=== PATIENT | female | born 1955 | race American Indian/Alaskan Native ===

== ENCOUNTER 2016-08-08 11:32 | Inpatient (IN) | payer MEDICARE ==
[2016-08-08] MEDS ORDERED: NACL 0.9% 1000 ML 1,000 ML IV ONE ×2 (11:51→13:26)
[2016-08-08] MEDS ORDERED: TYLENOL PO STA (11:51)
--- NOTE | 2016-08-08 12:33 | XRay Report ---
CHEST TWO VIEWS: 08/08/16 11:32:00 CLINICAL: Cough and fever. COMPARISON: None FINDINGS: Normal heart and pulmonary vasculature. The lungs are normally expanded and clear.The bones and soft tissues are unremarkable. IMPRESSION: Normal chest.
[2016-08-08 12:38] LABS: Basophils % (Auto) 0.7 % (0.0-1.8); Eosinophils % (Auto) 0.1 % (0.0-4.3); Hematocrit 51.3 % (30.3-42.9); Hemoglobin 17.1 gm/dl (10.1-14.3); Mean Corpuscular HGB Conc 33 % (30-34); Mean Corpuscular Hemoglobin 32 pg (28-32); Mean Corpuscular Volume 95 fl (79-97); Platelet Count 213 K/mm3 (140-440); Red Blood Count 5.38 M/mm3 (3.65-5.03); Red Cell Distribution Width 14.1 % (13.2-15.2); White Blood Count 10.3 K/mm3 (4.5-11.0)
[2016-08-08 12:47] LABS: Creatine Kinase MB 4.1 ng/mL (0.0-4.0)
[2016-08-08 12:48] LABS: Alanine Aminotransferase 26 units/L (7-56); Albumin 4.5 g/dL (3.9-5); Albumin/Globulin Ratio 1.2 %; Alkaline Phosphatase 84 units/L (35-129); Anion Gap 22 mmol/L; Bilirubin,Total 0.8 mg/dL (0.1-1.2); Blood Urea Nitrogen 15 mg/dL (7-17); Calcium 9.7 mg/dL (8.4-10.2); Carbon Dioxide 21 mmol/L (22-30); Chloride 98.5 mmol/L (98-107); Glucose 144 mg/dL (65-100); INR 1.05 (0.87-1.13); Potassium 4.2 mmol/L (3.6-5.0); Sodium 137 mmol/L (137-145); Total Protein 8.3 g/dL (6.3-8.2)
[2016-08-08 12:49] LABS: Creatine Kinase 976 units/L (30-135)
[2016-08-08] MEDS ORDERED: LEVAQUIN 750MG/150ML 750 MG/150 ML BAG IV ONE (13:26)
[2016-08-08] MEDS ORDERED: NACL ONE (14:10)
[2016-08-08 15:11] LABS: Bilirubin,Urine NEG (Negative); Blood,Urine SM (Negative); Ketones,Urine 20 mg/dL (Negative); Leukocyte Esterase,Urine NEG (Negative); Mucus,Urine 3+ /HPF; Nitrite,Urine NEG (Negative); Urobilinogen,Urine < 2.0 mg/dL (<2.0)
--- NOTE | 2016-08-08 16:24 | Cat Scan Report ---
FINAL REPORT EXAM: CT ANGIO CHEST HISTORY: CP hypoxia TECHNIQUE: CT chest CT angiogram with reconstructions PRIORS: None. FINDINGS: There is no evidence of filling defect within the central pulmonary vasculature to suggest the presence of acute pulmonary embolus. There is an enlarged AP window lymph node measuring 1.4 x 1.2 centimeters. There is enlarged sub carinal lymph node 1.1 x 0.64 centimeters Heart and great vessels are unremarkable. The aorta is normal in caliber. There are scattered patchy ground-glass opacities with interlobular septal thickening present throughout both lungs. There is some bronchial wall thickening noted centrally. There is a low-density left adrenal mass measuring 2.3 x 2.2 centimeters. Indeterminate. Could be lipid poor adenoma. Additional follow-up noncontrast CT recommended for further evaluation IMPRESSION: Mediastinal adenopathy. Could be reactive Patchy bilateral ground-glass opacities with bronchial wall thickening. Differential considerations are broad and include infectious etiologies including atypical or opportunistic infections, eosinophilic pneumonia, sarcoidosis, idiopathic lung diseases or pneumonitis No CT evidence for acute pulmonary embolus left adrenal mass. This should be further characterized. A non urgent followup noncontrast CT suggested for further evaluation.
--- NOTE | 2016-08-08 17:03 | Emergency Department Report ---
ED General Adult HPI - General Chief complaint: Chest Pain Stated complaint: SOB/TIGHTNESS IN CHEST Time Seen by Provider: 08/08/16 13:23 Source: patient Mode of arrival: Ambulatory Limitations: No Limitations - History of Present Illness Initial comments: Patient complains of nonproductive cough and difficulty in breathing. She also has anterior chest discomfort. This occurs mostly when she coughs and not necessarily related to her respirations she states that she lives in a building where the resident across the [place] "has the flu". She denies any prior history of immunocompromise. She has never had an HIV test. As a history of hypertension and thyroid disease. She states that she has never been admitted to a hospital other than for childbirth. She presented with a temperature greater than 102. She was unaware of fever. She denied chills. She denied recent travel leg pain or swelling. She has no history of chronic pulmonary problems. She states she has seen a mechanist in the past however for a "enlarged heart. -: Gradual, hour(s) Location: chest Radiation: non-radiation Severity scale (0 -10): 4 Quality: aching Consistency: intermittent Improves with: none Associated Symptoms: cough, shortness of breath Treatments Prior to Arrival: none - Related Data Home Medications Medication Instructions Recorded Confirmed Last Taken Aspirin [Aspirin BABY CHEW TAB] 81 mg PO DAILY 06/09/13 05/01/14 05/01/14 Cholecalciferol (Vitamin D3) 50,000 units PO QWEEK 06/09/13 05/01/14 Unknown [Vitamin D] Cyclobenzaprine HCl [FLEXERIL] 10 mg PO PRN PRN 06/09/13 05/01/14 Unknown Gabapentin [Neurontin] 600 mg PO TID 06/09/13 05/01/14 Unknown Levothyroxine [Synthroid] 75 mcg PO DAILY 06/09/13 05/01/14 05/01/14 Simvastatin [Zocor TAB] 40 mg PO DAILY 06/09/13 05/01/14 04/30/14 Trazodone HCl [Trazodone] 100 mg PO QHS 06/09/13 05/01/14 Unknown Triamter/Hctz 37.5-25 mg DAILY 06/09/13 05/01/14 05/01/14 [Maxzide-25] traMADol [Ultram 50 MG tab] 50 mg PO PRN PRN 06/09/13 05/01/14 Unknown Fluticasone [Flonase] 05/01/14 05/01/14 04/30/14 Isosorbide Mononitrate [Isosorbide 30 mg PO 05/01/14 05/01/14 05/01/14 Mononitrate ER] Zolpidem [Ambien] 5 mg PO QHS PRN 05/01/14 05/01/14 Unknown buPROPion SR [Wellbutrin Sr] 05/01/14 05/01/14 Unknown Previous Rx's Medication Instructions Recorded Last Taken Type Amoxicillin/K Clav Tab [Augmentin 1 tab PO BID #20 tablet 05/01/14 Unknown Rx 875MG] HYDROcodone/APAP 5-325 [[place] 1 each PO Q6HR PRN #20 tablet 05/01/14 Unknown Rx 5-325 mg TAB] Allergies Allergy/AdvReac Type Severity Reaction Status Date / Time Sulfa (Sulfonamide Allergy Itching Verified 08/08/16 11:44 Antibiotics) ED Review of Systems ROS: Stated complaint: SOB/TIGHTNESS IN CHEST Other details as noted in HPI Constitutional: denies: chills, fever Eyes: denies: eye pain, eye discharge, vision change ENT: denies: ear pain, throat pain Respiratory: no symptoms reported, cough, shortness of breath. denies: wheezing Cardiovascular: denies: chest pain, palpitations Endocrine: no symptoms reported Gastrointestinal: denies: abdominal pain, nausea, diarrhea Genitourinary: denies: urgency, dysuria, discharge Musculoskeletal: denies: back pain, joint swelling, arthralgia Skin: denies: rash, lesions Neurological: denies: headache, weakness, paresthesias Psychiatric: denies: anxiety, depression Hematological/Lymphatic: denies: easy bleeding, easy bruising ED Past Medical Hx - Past Medical History Hx Hypertension: Yes Additional medical history: hypothyroid; high cholesterol;degenerative disc - Surgical History Hx Cholecystectomy: Yes (1988) Additional Surgical History: Bilateral breast - Social History Smoking Status: Former Smoker Substance Use Type: None - Medications Home Medications: Home Medications Medication Instructions Recorded Confirmed Last Taken Type Aspirin [Aspirin BABY CHEW TAB] 81 mg PO DAILY 06/09/13 05/01/14 05/01/14 History Cholecalciferol (Vitamin D3) 50,000 units PO QWEEK 06/09/13 05/01/14 Unknown History [Vitamin D] Cyclobenzaprine HCl [FLEXERIL] 10 mg PO PRN PRN 06/09/13 05/01/14 Unknown History Gabapentin [Neurontin] 600 mg PO TID 06/09/13 05/01/14 Unknown History Levothyroxine [Synthroid] 75 mcg PO DAILY 06/09/13 05/01/14 05/01/14 History Simvastatin [Zocor TAB] 40 mg PO DAILY 06/09/13 05/01/14 04/30/14 History Trazodone HCl [Trazodone] 100 mg PO QHS 06/09/13 05/01/14 Unknown History Triamter/Hctz 37.5-25 mg DAILY 06/09/13 05/01/14 05/01/14 History [Maxzide-25] traMADol [Ultram 50 MG tab] 50 mg PO PRN PRN 06/09/13 05/01/14 Unknown History Amoxicillin/K Clav Tab [Augmentin 1 tab PO BID #20 tablet 05/01/14 Unknown Rx 875MG] Fluticasone [Flonase] 05/01/14 05/01/14 04/30/14 History HYDROcodone/APAP 5-325 [[place] 1 each PO Q6HR PRN #20 tablet 05/01/14 Unknown Rx 5-325 mg TAB] Isosorbide Mononitrate [Isosorbide 30 mg PO 05/01/14 05/01/14 05/01/14 History Mononitrate ER] Zolpidem [Ambien] 5 mg PO QHS PRN 05/01/14 05/01/14 Unknown History buPROPion SR [Wellbutrin Sr] 05/01/14 05/01/14 Unknown History ED Physical Exam - General Limitations: No Limitations General appearance: alert, in no apparent distress, other (tachypnea is noted) - Head Head exam: Present: atraumatic, normocephalic - Eye Eye exam: Present: normal appearance, PERRL, EOMI. Absent: scleral icterus - ENT ENT exam: Present: normal exam, mucous membranes moist - Neck Neck exam: Present: normal inspection - Respiratory Respiratory exam: Present: normal lung sounds bilaterally, other (tachypnea). Absent: respiratory distress - Cardiovascular Cardiovascular Exam: Present: normal rhythm, tachycardia. Absent: systolic murmur, diastolic murmur, rubs, gallop - GI/Abdominal GI/Abdominal exam: Present: soft, normal bowel sounds. Absent: distended, tenderness, guarding, rebound, rigid - Extremities Exam Extremities exam: Present: normal inspection - Back Exam Back exam: Present: normal inspection - Neurological Exam Neurological exam: Present: alert, oriented X3, CN II-XII intact. Absent: motor sensory deficit - Psychiatric Psychiatric exam: Present: normal affect, normal mood - Skin Skin exam: Present: warm, dry, intact, normal color. Absent: rash ED Course Vital Signs 08/08/16 08/08/16 08/08/16 11:44 12:10 12:27 Temperature 102.1 F H Pulse Rate 126 H 125 H Respiratory 24 18 Rate Blood Pressure 135/93 Blood Pressure 112/75 [Right] O2 Sat by Pulse 92 95 95 Oximetry 08/08/16 08/08/16 08/08/16 13:01 14:01 14:16 Temperature Pulse Rate 119 H 119 H Respiratory 31 H 35 H 16 Rate Blood Pressure 96/59 97/62 Blood Pressure [Right] O2 Sat by Pulse 91 94 95 Oximetry 08/08/16 15:01 Temperature Pulse Rate 111 H Respiratory 31 H Rate Blood Pressure 107/67 Blood Pressure [Right] O2 Sat by Pulse 95 Oximetry - Reevaluation(s) Reevaluation #1: CT angiogram was obtained. The radiologist reported no pulmonary embolism. There are scattered groundglass infiltrates which have the usual broad differential diagnosis. The patient was treated with Levaquin. She was admitted by the hospitalist service for further Care and evaluation in stable condition. 08/08/16 17:03 ED Medical Decision Making - Lab Data Result diagrams: 08/08/16 12:04 08/08/16 12:04 Laboratory Results - last 24 hr 08/08/16 08/08/16 08/08/16 11:54 12:04 12:04 WBC 10.3 RBC 5.38 H Hgb 17.1 H Hct 51.3 H MCV 95 MCH 32 MCHC 33 RDW 14.1 Plt Count 213 Lymph % (Auto) 11.2 L [place] % (Auto) 11.7 H Eos % (Auto) 0.1 Baso % (Auto) 0.7 Lymph # 1.2 [place] # 1.2 H Eos # 0.0 Baso # 0.1 Seg Neutrophils % 76.3 H Seg Neutrophils # 7.9 H PT 13.6 INR 1.05 APTT VBG pH Sodium Potassium Chloride Carbon Dioxide Anion Gap BUN Creatinine Estimated GFR BUN/Creatinine Ratio Glucose Lactic Acid Calcium Total Bilirubin AST ALT Alkaline Phosphatase Total Creatine Kinase CK-MB (CK-2) CK-MB (CK-2) Rel Index Troponin T NT-Pro-B Natriuret Pep Total Protein Albumin Albumin/Globulin Ratio Urine Color Yellow Urine Turbidity Clear Urine pH 5.0 Ur Specific [place] 1.025 Urine Protein 100 mg/dl Urine Glucose (UA) Neg Urine Ketones 20 Urine Blood Sm Urine Nitrite Neg Urine Bilirubin Neg Urine Urobilinogen < 2.0 Ur Leukocyte Esterase Neg Urine WBC (Auto) 8.0 H Urine RBC (Auto) 3.0 U Epithel Cells (Auto) 1.0 Urine Mucus 3+ 08/08/16 08/08/16 08/08/16 12:04 12:04 12:04 WBC RBC Hgb Hct MCV MCH MCHC RDW Plt Count Lymph % (Auto) [place] % (Auto) Eos % (Auto) Baso % (Auto) Lymph # [place] # Eos # Baso # Seg Neutrophils % Seg Neutrophils # PT INR APTT VBG pH 7.317 L Sodium 137 Potassium 4.2 Chloride 98.5 Carbon Dioxide 21 L Anion Gap 22 BUN 15 Creatinine 1.0 Estimated GFR > 60 BUN/Creatinine Ratio 15.00 Glucose 144 H Lactic Acid 2.6 H* Calcium 9.7 Total Bilirubin 0.8 AST 41 H ALT 26 Alkaline Phosphatase 84 Total Creatine Kinase CK-MB (CK-2) CK-MB (CK-2) Rel Index Troponin T NT-Pro-B Natriuret Pep Total Protein 8.3 H Albumin 4.5 Albumin/Globulin Ratio 1.2 Urine Color Urine Turbidity Urine pH Ur Specific [place] Urine Protein Urine Glucose (UA) Urine Ketones Urine Blood Urine Nitrite Urine Bilirubin Urine Urobilinogen Ur Leukocyte Esterase Urine WBC (Auto) Urine RBC (Auto) U Epithel Cells (Auto) Urine Mucus 08/08/16 08/08/16 08/08/16 12:04 12:04 14:04 WBC RBC Hgb Hct MCV MCH MCHC RDW Plt Count Lymph % (Auto) [place] % (Auto) Eos % (Auto) Baso % (Auto) Lymph # [place] # Eos # Baso # Seg Neutrophils % Seg Neutrophils # PT INR APTT 28.6 VBG pH Sodium Potassium Chloride Carbon Dioxide Anion Gap BUN Creatinine Estimated GFR BUN/Creatinine Ratio Glucose Lactic Acid Calcium Total Bilirubin AST ALT Alkaline Phosphatase Total Creatine Kinase 976 H CK-MB (CK-2) 4.1 H CK-MB (CK-2) Rel Index 0.4 Troponin T < 0.010 NT-Pro-B Natriuret Pep 90.08 Total Protein Albumin Albumin/Globulin Ratio Urine Color Urine Turbidity Urine pH Ur Specific [place] Urine Protein Urine Glucose (UA) Urine Ketones Urine Blood Urine Nitrite Urine Bilirubin Urine Urobilinogen Ur Leukocyte Esterase Urine WBC (Auto) Urine RBC (Auto) U Epithel Cells (Auto) Urine Mucus 08/08/16 16:12 WBC RBC Hgb Hct MCV MCH MCHC RDW Plt Count Lymph % (Auto) [place] % (Auto) Eos % (Auto) Baso % (Auto) Lymph # [place] # Eos # Baso # Seg Neutrophils % Seg Neutrophils # PT INR APTT VBG pH Sodium Potassium Chloride Carbon Dioxide Anion Gap BUN Creatinine Estimated GFR BUN/Creatinine Ratio Glucose Lactic Acid 1.9 Calcium Total Bilirubin AST ALT Alkaline Phosphatase Total Creatine Kinase CK-MB (CK-2) CK-MB (CK-2) Rel Index Troponin T NT-Pro-B Natriuret Pep Total Protein Albumin Albumin/Globulin Ratio Urine Color Urine Turbidity Urine pH Ur Specific [place] Urine Protein Urine Glucose (UA) Urine Ketones Urine Blood Urine Nitrite Urine Bilirubin Urine Urobilinogen Ur Leukocyte Esterase Urine WBC (Auto) Urine RBC (Auto) U Epithel Cells (Auto) Urine Mucus - EKG Data -: EKG Interpreted by Me EKG shows normal: sinus rhythm, axis, intervals, QRS complexes, ST-T waves Rate: tachycardia - EKG Data Interpretation: no acute changes Critical care attestation.: If time is entered above; I have spent that time in minutes in the direct care of this critically ill patient, excluding procedure time. ED Disposition Clinical Impression: Hypoxia, Elevated lactic acid level Pneumonia Qualifiers: Pneumonia type: due to unspecified organism Laterality: unspecified laterality Lung location: unspecified part of lung Qualified Code(s): J18.9 - Pneumonia, unspecified organism Disposition: OP ADMITTED IP TO THIS HOSP Is pt being admited?: Yes Does the pt Need Aspirin: Yes Condition: Stable Instructions: Bacterial Pneumonia (ED) Referrals: PRIMARY CARE, [Primary Care Provider] - 3-5 Days Time of Disposition: 17:05
[2016-08-08] MEDS ORDERED: BABY ASPIRIN PO ONE (17:06)
--- NOTE | 2016-08-08 18:58 | History and Physical Report ---
History of Present Illness Date of examination: 08/08/16 Date of admission: 08/08/16 Chief complaint: Fever Body aches and cough for 4 days History of present illness: 61 y/o AAF comes in for cough and fever. Patient complains of nonproductive cough and difficulty in breathing. She also has anterior chest discomfort. This occurs mostly when she coughs and not necessarily related to her respirations she states that she lives in a building where the resident across the [place] "has the flu". She denies any prior history of immunocompromise. She has never had an HIV test. As a history of hypertension and thyroid disease. She states that she has never been admitted to a hospital other than for childbirth. She presented with a temperature greater than 102. She was unaware of fever. She denied chills. She denied recent travel leg pain or swelling. She has no history of chronic pulmonary problems. She states she has seen a material hauler in the past however for a "enlarged heart. -: Gradual, hour(s) Location: chest Radiation: non-radiation Severity scale (0 -10): 4 Quality: aching Consistency: intermittent Improves with: none Associated Symptoms: cough, shortness of breath Treatments Prior to Arrival: none Past History Past Medical History: CAD, diabetes, hypertension, hyperlipidemia, hypothyroidism Past Surgical History: cholecystectomy, Other (Ilya breasst surgery) Social history: lives with family, smoking (Former smoker) Family history: hypertension Medications and Allergies Allergies Allergy/AdvReac Type Severity Reaction Status Date / Time Sulfa (Sulfonamide Allergy Itching Verified 08/08/16 11:44 Antibiotics) Home Medications Medication Instructions Recorded Confirmed Last Taken Type Cholecalciferol (Vitamin D3) 50,000 units PO QWEEK 06/09/13 08/08/16 Unknown History [Vitamin D] Levothyroxine [Synthroid] 75 mcg PO DAILY 06/09/13 08/08/16 05/01/14 History Simvastatin [Zocor TAB] 40 mg PO DAILY 06/09/13 08/08/16 04/30/14 History buPROPion SR [Wellbutrin Sr] 150 mg PO QAM 05/01/14 08/08/16 Unknown History Carvedilol [Coreg] 3.125 mg PO BID 08/08/16 08/08/16 Unknown History Losartan [Cozaar] 100 mg PO QDAY 08/08/16 08/08/16 Unknown History Sitagliptin Phosphate [Januvia] 100 mg PO 08/08/16 Unknown History Umeclidinium Brm/Vilanterol Tr 1 each IH DAILY 08/08/16 08/08/16 Unknown History [Anoro Ellipta 62.5-25 Mcg INH] amLODIPine [Norvasc] 5 mg PO DAILY 08/08/16 08/08/16 Unknown History metFORMIN [Glucophage] 500 mg PO BID 08/08/16 08/08/16 Unknown History Review of Systems All systems: negative Constitutional: fever Respiratory: cough with sputum, shortness of breath Exam - Constitutional Vitals: Temp Pulse Resp BP Pulse Ox 102.1 F H 115 H 34 H 153/92 95 08/08/16 11:44 08/08/16 18:00 08/08/16 18:00 08/08/16 18:00 08/08/16 18:00 General appearance: Present: no acute distress, well-nourished - EENT Eyes: Present: PERRL ENT: hearing intact, clear oral mucosa - Neck Neck: Present: supple, normal ROM - Respiratory Respiratory effort: normal Respiratory: right: rales, bilateral: CTA - Cardiovascular Heart Sounds: Present: S1 & S2. Absent: rub, click - Extremities Extremities: pulses symmetrical, No edema Peripheral Pulses: within normal limits - Abdominal General gastrointestinal: Present: soft, non-tender, non-distended, normal bowel sounds Female genitourinary: Present: normal - Integumentary Integumentary: Present: clear, warm, dry - Musculoskeletal Musculoskeletal: gait normal, strength equal bilaterally - Psychiatric Psychiatric: appropriate mood/affect, intact judgment & insight - Neurologic Neurologic: CNII-XII intact, moves all extremities Results - Labs CBC & Chem 7: 08/09/16 05:04 08/09/16 05:04 Labs: Abnormal lab results 08/08/16 08/08/16 08/08/16 Range/Units 11:54 12:04 12:04 RBC 5.38 H (3.65-5.03) M/mm3 Hgb 17.1 H (10.1-14.3) gm/dl Hct 51.3 H (30.3-42.9) % Lymph % (Auto) 11.2 L (13.4-35.0) % [place] % (Auto) 11.7 H (0.0-7.3) % [place] # 1.2 H (0.0-0.8) K/mm3 Seg Neutrophils % 76.3 H (40.0-70.0) % Seg Neutrophils # 7.9 H (1.8-7.7) K/mm3 VBG pH (7.320-7.420) Carbon Dioxide 21 L (22-30) mmol/L Glucose 144 H (65-100) mg/dL Lactic Acid (0.7-2.0) mmol/L AST 41 H (5-40) units/L Total Creatine Kinase (30-135) units/L CK-MB (CK-2) (0.0-4.0) ng/mL Total Protein 8.3 H (6.3-8.2) g/dL Urine WBC (Auto) 8.0 H (0.0-6.0) /HPF 08/08/16 08/08/16 08/08/16 Range/Units 12:04 12:04 12:04 RBC (3.65-5.03) M/mm3 Hgb (10.1-14.3) gm/dl Hct (30.3-42.9) % Lymph % (Auto) (13.4-35.0) % [place] % (Auto) (0.0-7.3) % [place] # (0.0-0.8) K/mm3 Seg Neutrophils % (40.0-70.0) % Seg Neutrophils # (1.8-7.7) K/mm3 VBG pH 7.317 L (7.320-7.420) Carbon Dioxide (22-30) mmol/L Glucose (65-100) mg/dL Lactic Acid 2.6 H* (0.7-2.0) mmol/L AST (5-40) units/L Total Creatine Kinase 976 H (30-135) units/L CK-MB (CK-2) 4.1 H (0.0-4.0) ng/mL Total Protein (6.3-8.2) g/dL Urine WBC (Auto) (0.0-6.0) /HPF Short CBC 08/08/16 08/09/16 Range/Units 12:04 05:04 WBC 10.3 9.7 (4.5-11.0) K/mm3 Hgb 17.1 H 14.4 H (10.1-14.3) gm/dl Hct 51.3 H 43.1 H D (30.3-42.9) % Plt Count 213 170 (140-440) K/mm3 BMP 08/08/16 08/09/16 12:04 05:04 Sodium 137 140 Potassium 4.2 3.9 Chloride 98.5 104.9 Carbon Dioxide 21 L 21 L BUN 15 14 Creatinine 1.0 0.8 Glucose 144 H 146 H Calcium 9.7 8.5 Cardiac Enzymes 08/08/16 Range/Units 12:04 Total Creatine Kinase 976 H (30-135) units/L CK-MB (CK-2) 4.1 H (0.0-4.0) ng/mL Troponin T < 0.010 (0.00-0.029) ng/mL Liver Function 08/08/16 08/09/16 Range/Units 12:04 05:04 Total Bilirubin 0.8 0.6 (0.1-1.2) mg/dL AST 41 H 48 H (5-40) units/L ALT 26 26 (7-56) units/L Alkaline Phosphatase 84 62 (35-129) units/L Albumin 4.5 3.6 L (3.9-5) g/dL Urine 08/08/16 Range/Units 11:54 Urine Color Yellow (Yellow) Urine pH 5.0 (5.0-7.0) Ur Specific [place] 1.025 (1.003-1.030) Urine Protein 100 mg/dl (Negative) mg/dL Urine Glucose (UA) Neg (Negative) mg/dL - Imaging and Cardiology Chest x-ray: report reviewed (Normal) CT scan - chest: report reviewed (Bilateral infiltrates) Assessment and Plan - Patient Problems (1) Pneumonia Current Visit: Yes Status: Acute Qualifiers: Pneumonia type: due to unspecified organism Aspiration pneumonia type: A Laterality: bilateral Lung location: unspecified part of lung Qualified Code (s): J18.9 - Pneumonia, unspecified organism Plan to address problem: IV Zosyn for gram positives and gram negatives (2) Hypoxia Current Visit: Yes Status: Acute Plan to address problem: Should improve with resolution of pneumonia (3) Hypertension Current Visit: No Status: Chronic Qualifiers: Hypertension type: essential hypertension Qualified Code(s): I10 - Essential (primary) hypertension Plan to address problem: Cont Antihypertensives (4) T2DM (type 2 diabetes mellitus) Current Visit: Yes Status: Chronic Qualifiers: Diabetes mellitus complication status: without complication Diabetes mellitus complication detail: D Diabetic retinopathy severity: D Proliferative retinopathy type: P Diabetes mellitus macular edema: D Diabetes mellitus superintendent terminal insulin use: without superintendent terminal use Laterality: L Chronic kidney disease stage: C Qualified Code(s): E11.9 - Type 2 diabetes mellitus without complications Plan to address problem: Cont oral hypoglycemics and coverage (5) Hypothyroidism (acquired) Current Visit: Yes Status: Chronic Plan to address problem: Cont Levothyroxine (6) HLD (hyperlipidemia) Current Visit: Yes Status: Chronic Qualifiers: Hyperlipidemia type: mixed hyperlipidemia Qualified Code(s): E78.2 - Mixed hyperlipidemia Plan to address problem: Cont statins (7) UTI (urinary tract infection) Current Visit: Yes Status: Acute Qualifiers: Urinary tract infection type: acute cystitis Hematuria presence: H Indwelling urinary catheter type: I Encounter type: E Plan to address problem: Iv Zosyn should cover (8) DVT prophylaxis Current Visit: Yes Status: Acute Plan to address problem: on Lovenox
[2016-08-08] MEDS ORDERED: ZOFRAN IV PRN (19:44)
[2016-08-08] MEDS ORDERED: DULCOLAX PR PRN (19:44)
[2016-08-08] MEDS ORDERED: TYLENOL PO PRN (19:44)
[2016-08-08] MEDS ORDERED: MILK OF MAGNESIA PO PRN (19:44)
[2016-08-08] MEDS ORDERED: NON-FORMULARY (Losartan [Cozaar] 100 MG) PO SCH (19:45)
[2016-08-08] MEDS ORDERED: NON-FORMULARY (Sitagliptin Phosphate [Januvia] 100 MG) PO SCH (19:45)
[2016-08-08] MEDS ORDERED: NON-FORMULARY (Umeclidinium Brm/Vilanterol Tr [Anoro Ellipta 62.5-25 Mcg Inh] 1 EACH) IH SCH (19:45)
[2016-08-08] MEDS ORDERED: NOVOLOG SUB-Q ONE (20:45)
[2016-08-08] MEDS: LOVENOX SUB-Q SCH (20:45)
[2016-08-08] MEDS: ZOCOR PO SCH (21:14)
[2016-08-08] MEDS: NORVASC PO SCH (21:15)
[2016-08-08] MEDS: SYNTHROID PO SCH (21:15)
[2016-08-08] MEDS ORDERED: TYLENOL PO ONE (21:16)
[2016-08-08] MEDS ORDERED: TYLENOL ONE (21:23)
[2016-08-08] MEDS: COREG PO SCH (23:19)
[2016-08-08] MEDS: GLUCOPHAGE PO SCH (23:21)
[2016-08-09] MEDS: ZOSYN/NS 4.5GM/100ML 4.5 GM/100 ML VIAL IV SCH ×4 (00:03→23:41)
[2016-08-09] MEDS: D5/0.45NS 1,000 ML IV SCH ×2 (00:04→17:37)
--- NOTE | 2016-08-09 00:27 | Admit Criteria Form ---
Admission Criteria Documentation: PNEUMONIA, COMMUNITY ACQUIRED Clinical Indications for Admission to Inpatient Care ( Place 'X' for any and all applicable criteria): Admission is indicated for ANY ONE of the following (1)(2)(3): [ ]I. Hypoxemia indicated by ANY ONE of the following: [ ]a) Oxygen saturation less than 90% while breathing room air [ ]b) PO2 less than 60 mm Hg (8.0 kPa) while breathing room air [ ]c) Chronic lung disease with significant deterioration from baseline oxygenation [X ]II. Appropriate diagnostic testing and treatment unavailable in outpatient or recovery facility (eg,testing or infection control measures unavailable(10) [ ]III. Moderate-risk or high-risk category patients (Pneumonia Severity Index (PSI) class IV or V, or CURB-65 score of 3 or greater). [ ]IV. Outpatient treatment failure as indicated by ANY ONE of the following(9) : [ ]a) Failure to respond to antibiotic (eg, resistant organism) [ ]b) Clinically significant adverse effects from medication (eg, vomiting) [ ]c) Complications of pneumonia (eg, empyema, bacteremia) [ ]d) Significant worsening of comorbid cond necessitating inpatient care (eg, chronic heart failure) [ ]V. Intermediate-risk category patients (eg, PSI class III or CURB-65 score 2) who do not improve with initial therapy and observation. [ ]. Immunocompromised patients (eg, AIDS, chronic steroid use) at moderate or high risk based on clinical evaluation. [ ]VII. Complicated pleural effusions (eg, exudative, loculated) [ ]VIII.Hemodynamic instability [ ] IX. Altered mental status that is severe or persistent. [ ]X. Dehydration that is severe or persistent. [ ]XI. Bacteremia [ ]XII. Respiratory finding (eg. tachypnea) that do not respond to outpatient or observation care treatment Extended stay beyond goal length of stay may be needed for (20) [ ]a) Unclear diagnosis [ ]b) Pleural disease [ ]c) Severe pneumonia or treatment failure (25 [ ]d) Respiratory failure (anticipate invasive or noninvasive ventilatory support) [ ]e) Abnormal serum electrolytes (serum Na concentration less than 135 mEq/L (mmol/L) (32)(33) [ ]f) Clinically significant comorbid illness (eg, heart failure, atrial fibrillation with rapid heart rate, alcohol withdrawal, renal insufficiency)(34)(35) [ ]g) Comorbid acute exacerbation of COPD(36) [ ]h) Concomitant diagnosis of malignancy that may be associated with malnutrition, immunologic impairment, or bronchial obstruction. [ ]i) Concomitant altered mental status [ ]j) Culture-identified Gram-negative or antibiotic-resistant organism (eg, Pseudomonas, methicillin-resistant Staphylococcus aureus)(30) [ ]k) Healthcare-associated pneumonia The original [employer] content created by [employer] has been revised. The portions of the content which have been revised are identified through the use of italic text or in bold, and [facility] has neither reviewed nor approved the modified material. All other unmodified content is copyright [employer]. Please see references footnoted in the original [facility] edition 2016 Admission Criteria Met: Yes
[2016-08-09 06:26] LABS: Basophils % (Auto) 0.5 % (0.0-1.8); Eosinophils % (Auto) 0.2 % (0.0-4.3); Hematocrit 43.1 % (30.3-42.9); Hemoglobin 14.4 gm/dl (10.1-14.3); Mean Corpuscular HGB Conc 33 % (30-34); Mean Corpuscular Hemoglobin 32 pg (28-32); Mean Corpuscular Volume 96 fl (79-97); Platelet Count 170 K/mm3 (140-440); Red Blood Count 4.47 M/mm3 (3.65-5.03); Red Cell Distribution Width 14.1 % (13.2-15.2); White Blood Count 9.7 K/mm3 (4.5-11.0)
[2016-08-09 06:31] LABS: Alanine Aminotransferase 26 units/L (7-56); Albumin 3.6 g/dL (3.9-5); Albumin/Globulin Ratio 1.4 %; Alkaline Phosphatase 62 units/L (35-129); Anion Gap 18 mmol/L; Bilirubin,Total 0.6 mg/dL (0.1-1.2); Blood Urea Nitrogen 14 mg/dL (7-17); Calcium 8.5 mg/dL (8.4-10.2); Carbon Dioxide 21 mmol/L (22-30); Chloride 104.9 mmol/L (98-107); Glucose 146 mg/dL (65-100); Potassium 3.9 mmol/L (3.6-5.0); Sodium 140 mmol/L (137-145); Total Protein 6.2 g/dL (6.3-8.2)
[2016-08-09] MEDS: PULMICORT IH SCH ×2 (07:21→21:04)
[2016-08-09] MEDS: BROVANA NEBU IH SCH ×2 (07:21→21:04)
[2016-08-09] MEDS: SYNTHROID PO SCH (10:00)
[2016-08-09] MEDS: NORVASC PO SCH (10:00)
[2016-08-09] MEDS: LOVENOX SUB-Q SCH (10:15)
[2016-08-09] MEDS: COZAAR PO SCH (10:15)
--- NOTE | 2016-08-09 10:27 | Progress Note ---
Assessment and Plan Assessment and plan: 1. Sepsis. Patient will be placed on the sepsis pathway. Follow-up blood cultures and trend lactic acid levels. 2. Bilateral pneumonia/pneumonitis. Pulmonary consultation. Follow serial chest x-ray. Continue IV antibiotics. 3. Hypothyroidism. Check TSH levels. 4. Hypercholesterolemia. Continue statins. 5. Degenerative disc disease. Pain control and Supportive care History Interval history: 61-year-old female presents to divert department with complaints of fever, chills, body aches 4 days prior to admission. Patient with diagnosis of sepsis , pneumonia/pneumonitis. Patient still with some cough of clear sputum and dyspnea with exertion. No chest pain. Hospitalist Physical - Constitutional Vitals: Temp Pulse Resp BP Pulse Ox 97.7 F 106 H 20 129/74 96 08/09/16 07:00 08/09/16 07:38 08/09/16 07:38 08/09/16 07:00 08/09/16 07:17 General appearance: Present: no acute distress, well-nourished - EENT Eyes: Present: PERRL, EOM intact ENT: hearing intact, clear oral mucosa, dentition normal - Neck Neck: Present: supple, normal ROM - Respiratory Respiratory effort: normal Respiratory: bilateral: diminished, rhonchi, other (conversational dyspnea) - Cardiovascular Rhythm: regular Heart Sounds: Present: S1 & S2. Absent: gallop, rub - Extremities Extremities: no ischemia, No edema, Full ROM - Abdominal General gastrointestinal: soft, non-tender, non-distended, normal bowel sounds - Integumentary Integumentary: Present: clear, warm, dry - Neurologic Neurologic: CNII-XII intact, moves all extremities Results - Labs CBC & Chem 7: 08/09/16 05:04 08/09/16 05:04 Labs: Laboratory Last Values WBC 9.7 K/mm3 (4.5-11.0) 08/09/16 05:04 RBC 4.47 M/mm3 (3.65-5.03) 08/09/16 05:04 Hgb 14.4 gm/dl (10.1-14.3) H 08/09/16 05:04 Hct 43.1 % (30.3-42.9) H D 08/09/16 05:04 MCV 96 fl (79-97) 08/09/16 05:04 MCH 32 pg (28-32) 08/09/16 05:04 MCHC 33 % (30-34) 08/09/16 05:04 RDW 14.1 % (13.2-15.2) 08/09/16 05:04 Plt Count 170 K/mm3 (140-440) 08/09/16 05:04 Lymph % (Auto) 19.0 % (13.4-35.0) 08/09/16 05:04 [place] % (Auto) 12.9 % (0.0-7.3) H 08/09/16 05:04 Eos % (Auto) 0.2 % (0.0-4.3) 08/09/16 05:04 Baso % (Auto) 0.5 % (0.0-1.8) 08/09/16 05:04 Lymph # 1.8 K/mm3 (1.2-5.4) 08/09/16 05:04 [place] # 1.3 K/mm3 (0.0-0.8) H 08/09/16 05:04 Eos # 0.0 K/mm3 (0.0-0.4) 08/09/16 05:04 Baso # 0.0 K/mm3 (0.0-0.1) 08/09/16 05:04 Seg Neutrophils % 67.4 % (40.0-70.0) 08/09/16 05:04 Seg Neutrophils # 6.6 K/mm3 (1.8-7.7) 08/09/16 05:04 PT 13.6 Sec. (12.2-14.9) 08/08/16 12:04 INR 1.05 (0.87-1.13) 08/08/16 12:04 APTT 28.6 Sec. (24.2-36.6) 08/08/16 14:04 VBG pH 7.317 (7.320-7.420) L 08/08/16 12:04 Sodium 140 mmol/L (137-145) 08/09/16 05:04 Potassium 3.9 mmol/L (3.6-5.0) 08/09/16 05:04 Chloride 104.9 mmol/L (98-107) 08/09/16 05:04 Carbon Dioxide 21 mmol/L (22-30) L 08/09/16 05:04 Anion Gap 18 mmol/L 08/09/16 05:04 BUN 14 mg/dL (7-17) 08/09/16 05:04 Creatinine 0.8 mg/dL (0.7-1.2) 08/09/16 05:04 Estimated GFR > 60 ml/min 08/09/16 05:04 BUN/Creatinine Ratio 17.50 % 08/09/16 05:04 Glucose 146 mg/dL (65-100) H 08/09/16 05:04 POC Glucose 168 (70-105) H 08/09/16 07:40 Hemoglobin A1c 7.0 % (4-6) H 08/08/16 12:04 Lactic Acid 1.9 mmol/L (0.7-2.0) 08/08/16 16:12 Calcium 8.5 mg/dL (8.4-10.2) 08/09/16 05:04 Total Bilirubin 0.6 mg/dL (0.1-1.2) 08/09/16 05:04 AST 48 units/L (5-40) H 08/09/16 05:04 ALT 26 units/L (7-56) 08/09/16 05:04 Alkaline Phosphatase 62 units/L (35-129) 08/09/16 05:04 Total Creatine Kinase 976 units/L (30-135) H 08/08/16 12:04 CK-MB (CK-2) 4.1 ng/mL (0.0-4.0) H 08/08/16 12:04 CK-MB (CK-2) Rel Index 0.4 (0-4) 08/08/16 12:04 Troponin T < 0.010 ng/mL (0.00-0.029) 08/08/16 12:04 NT-Pro-B Natriuret Pep 90.08 pg/mL (0-900) 08/08/16 12:04 Total Protein 6.2 g/dL (6.3-8.2) L D 08/09/16 05:04 Albumin 3.6 g/dL (3.9-5) L 08/09/16 05:04 Albumin/Globulin Ratio 1.4 % 08/09/16 05:04 Urine Color Yellow (Yellow) 08/08/16 11:54 Urine Turbidity Clear (Clear) 08/08/16 11:54 Urine pH 5.0 (5.0-7.0) 08/08/16 11:54 Ur Specific [place] 1.025 (1.003-1.030) 08/08/16 11:54 Urine Protein 100 mg/dl mg/dL (Negative) 08/08/16 11:54 Urine Glucose (UA) Neg mg/dL (Negative) 08/08/16 11:54 Urine Ketones 20 mg/dL (Negative) 08/08/16 11:54 Urine Blood Sm (Negative) 08/08/16 11:54 Urine Nitrite Neg (Negative) 08/08/16 11:54 Urine Bilirubin Neg (Negative) 08/08/16 11:54 Urine Urobilinogen < 2.0 mg/dL (<2.0) 08/08/16 11:54 Ur Leukocyte Esterase Neg (Negative) 08/08/16 11:54 Urine WBC (Auto) 8.0 /HPF (0.0-6.0) H 08/08/16 11:54 Urine RBC (Auto) 3.0 /HPF (0.0-6.0) 08/08/16 11:54 U Epithel Cells (Auto) 1.0 /HPF (0-13.0) 08/08/16 11:54 Urine Mucus 3+ /HPF 08/08/16 11:54
[2016-08-09] MEDS: COREG PO SCH ×2 (11:00→23:43)
[2016-08-09] MEDS: GLUCOPHAGE PO SCH ×2 (11:15→22:00)
[2016-08-09] MEDS: TRADJENTA PO SCH (11:16)
[2016-08-09] MEDS: ZOCOR PO SCH (11:16)
[2016-08-09] MEDS ORDERED: PNEUMOVAX 23 IM ONE (12:00)
[2016-08-09] MEDS ORDERED: PROAIR IH PRN (15:40)
[2016-08-09] MEDS ORDERED: PROVENTIL IH PRN (15:44)
[2016-08-09] MEDS: DILAUDID IV PRN ×2 (17:29→23:51)
[2016-08-09 18:08] LABS: ISTAT Base Excess -6; ISTAT HCO3 19.4; ISTAT PCO2 32.6 (35-45); ISTAT PH 7.383 (7.35-7.45); ISTAT PO2 56 (80-105); ISTAT SO2 89; ISTAT TCO2 20
[2016-08-09] MEDS ORDERED: LASIX IV ONE (18:08)
--- NOTE | 2016-08-09 18:53 | XRay Report ---
FINAL REPORT EXAM: XR CHEST 1V AP HISTORY: Pneumonia, difficulty breathing TECHNIQUE: Chest portable upright PRIORS: Comparison is dated August [address] chest FINDINGS: Patchy bilateral pulmonary infiltrates are identified. These were further described on the recent chest CT. Cardiac and mediastinal contours are within normal limits. Pulmonary vasculature is unremarkable. No pleural effusion seen. IMPRESSION: Patchy bilateral pulmonary infiltrates which have been further described on the recent CT. No additional acute findings
[2016-08-10 05:25] LABS: Basophils % (Auto) 0.4 % (0.0-1.8); Eosinophils % (Auto) 0.3 % (0.0-4.3); Hemoglobin 12.8 gm/dl (10.1-14.3); Mean Corpuscular HGB Conc 33 % (30-34); Mean Corpuscular Hemoglobin 31 pg (28-32); Mean Corpuscular Volume 96 fl (79-97); Platelet Count 159 K/mm3 (140-440); Red Blood Count 4.08 M/mm3 (3.65-5.03); Red Cell Distribution Width 14.4 % (13.2-15.2); White Blood Count 11.5 K/mm3 (4.5-11.0)
[2016-08-10] MEDS ORDERED: NACL 0.9% 500 ML 500 ML IV ONE (05:30)
[2016-08-10 05:42] LABS: BUN/Creatinine Ratio 6.66; Calcium 8.1 mg/dL (8.4-10.2); Chloride 103.9 mmol/L (98-107); Potassium 3.5 mmol/L (3.6-5.0)
[2016-08-10] MEDS: ZOSYN/NS 4.5GM/100ML 4.5 GM/100 ML VIAL IV SCH ×3 (07:25→22:42)
[2016-08-10] MEDS: BROVANA NEBU IH SCH ×2 (07:53→21:04)
[2016-08-10] MEDS: PULMICORT IH SCH ×2 (07:53→21:03)
[2016-08-10] MEDS: GLUCOPHAGE PO SCH (09:09)
[2016-08-10] MEDS: COREG PO SCH ×2 (09:09→22:46)
[2016-08-10] MEDS: SYNTHROID PO SCH (09:10)
[2016-08-10] MEDS: LOVENOX SUB-Q SCH (09:10)
[2016-08-10] MEDS: ZOCOR PO SCH (09:10)
--- NOTE | 2016-08-10 09:25 | Progress Note ---
Assessment and Plan Assessment and plan: 1. Sepsis. Patient will be placed on the sepsis pathway. Blood cultures thus far negative and lactic acid level normal. Continue to follow. 2. Acute hypoxemic respiratory failure. Patient with ABG revealing PO2 of 56. Continue O2 and BiPAP as needed. Follow-up ABG. 3. Bilateral pneumonia/pneumonitis. Pulmonary consultation. Follow serial chest x-ray. Continue IV antibiotics. Check echocardiogram. 4. Acute renal failure. Etiology most likely secondary to acute kidney injury from sepsis +/- dehydration/vasomotor nephropathy. Continue to follow BMP. If creatinine continues to rise, check renal ultrasound and nephrology consultation. 5. Hypothyroidism. Check TSH levels. 6. Hypercholesterolemia. Continue statins. 7. Degenerative disc disease. Pain control and Supportive care History Interval history: 61-year-old female presents to divert department with complaints of fever, chills, body aches 4 days prior to admission. Patient with diagnosis of sepsis , pneumonia/pneumonitis. Patient still with some cough of clear sputum and dyspnea with exertion. No chest pain. Hospitalist Physical - Constitutional Vitals: Temp Pulse Resp BP Pulse Ox 100.7 F H 93 H 20 106/70 94 08/10/16 00:59 08/10/16 09:09 08/10/16 08:16 08/10/16 09:09 08/10/16 07:47 General appearance: Present: no acute distress, well-nourished - EENT Eyes: Present: PERRL, EOM intact ENT: hearing intact, clear oral mucosa, dentition normal - Neck Neck: Present: supple, normal ROM - Respiratory Respiratory effort: normal Respiratory: bilateral: diminished, wheezing - Cardiovascular Rhythm: regular Heart Sounds: Present: S1 & S2. Absent: gallop, rub - Extremities Extremities: no ischemia, No edema, Full ROM - Abdominal General gastrointestinal: soft, non-tender, non-distended, normal bowel sounds - Integumentary Integumentary: Present: clear, warm, dry - Neurologic Neurologic: CNII-XII intact, moves all extremities Results - Labs CBC & Chem 7: 08/10/16 04:39 08/10/16 04:39 Labs: Laboratory Last Values WBC 11.5 K/mm3 (4.5-11.0) H 08/10/16 04:39 RBC 4.08 M/mm3 (3.65-5.03) 08/10/16 04:39 Hgb 12.8 gm/dl (10.1-14.3) 08/10/16 04:39 Hct 39.0 % (30.3-42.9) 08/10/16 04:39 MCV 96 fl (79-97) 08/10/16 04:39 MCH 31 pg (28-32) 08/10/16 04:39 MCHC 33 % (30-34) 08/10/16 04:39 RDW 14.4 % (13.2-15.2) 08/10/16 04:39 Plt Count 159 K/mm3 (140-440) 08/10/16 04:39 Lymph % (Auto) 15.6 % (13.4-35.0) 08/10/16 04:39 [place] % (Auto) 8.1 % (0.0-7.3) H 08/10/16 04:39 Eos % (Auto) 0.3 % (0.0-4.3) 08/10/16 04:39 Baso % (Auto) 0.4 % (0.0-1.8) 08/10/16 04:39 Lymph # 1.8 K/mm3 (1.2-5.4) 08/10/16 04:39 [place] # 0.9 K/mm3 (0.0-0.8) H 08/10/16 04:39 Eos # 0.0 K/mm3 (0.0-0.4) 08/10/16 04:39 Baso # 0.0 K/mm3 (0.0-0.1) 08/10/16 04:39 Seg Neutrophils % 75.6 % (40.0-70.0) H 08/10/16 04:39 Seg Neutrophils # 8.7 K/mm3 (1.8-7.7) H 08/10/16 04:39 PT 13.6 Sec. (12.2-14.9) 08/08/16 12:04 INR 1.05 (0.87-1.13) 08/08/16 12:04 APTT 28.6 Sec. (24.2-36.6) 08/08/16 14:04 POC ABG pH 7.383 (7.35-7.45) 08/09/16 17:51 POC ABG pCO2 32.6 (35-45) L 08/09/16 17:51 POC ABG pO2 56 (80-105) L 08/09/16 17:51 POC ABG HCO3 19.4 08/09/16 17:51 POC ABG Total CO2 20 08/09/16 17:51 POC ABG O2 Sat 89 08/09/16 17:51 POC ABG Base Excess -6 08/09/16 17:51 VBG pH 7.317 (7.320-7.420) L 08/08/16 12:04 FiO2 26 % 08/09/16 17:51 Sodium 140 mmol/L (137-145) 08/10/16 04:39 Potassium 3.5 mmol/L (3.6-5.0) L 08/10/16 04:39 Chloride 103.9 mmol/L (98-107) 08/10/16 04:39 Carbon Dioxide 23 mmol/L (22-30) 08/10/16 04:39 Anion Gap 17 mmol/L 08/10/16 04:39 BUN 10 mg/dL (7-17) 08/10/16 04:39 Creatinine 1.5 mg/dL (0.7-1.2) H D 08/10/16 04:39 Estimated GFR 43 ml/min 08/10/16 04:39 BUN/Creatinine Ratio 6.66 % 08/10/16 04:39 Glucose 164 mg/dL (65-100) H 08/10/16 04:39 POC Glucose 112 (70-105) H 08/10/16 08:20 Hemoglobin A1c 7.0 % (4-6) H 08/08/16 12:04 Lactic Acid 0.9 mmol/L (0.7-2.0) 08/09/16 14:54 Calcium 8.1 mg/dL (8.4-10.2) L 08/10/16 04:39 Total Bilirubin 0.6 mg/dL (0.1-1.2) 08/09/16 05:04 AST 48 units/L (5-40) H 08/09/16 05:04 ALT 26 units/L (7-56) 08/09/16 05:04 Alkaline Phosphatase 62 units/L (35-129) 08/09/16 05:04 Total Creatine Kinase 976 units/L (30-135) H 08/08/16 12:04 CK-MB (CK-2) 4.1 ng/mL (0.0-4.0) H 08/08/16 12:04 CK-MB (CK-2) Rel Index 0.4 (0-4) 08/08/16 12:04 Troponin T < 0.010 ng/mL (0.00-0.029) 08/08/16 12:04 NT-Pro-B Natriuret Pep 90.08 pg/mL (0-900) 08/08/16 12:04 Total Protein 6.2 g/dL (6.3-8.2) L D 08/09/16 05:04 Albumin 3.6 g/dL (3.9-5) L 08/09/16 05:04 Albumin/Globulin Ratio 1.4 % 08/09/16 05:04 Urine Color Yellow (Yellow) 08/08/16 11:54 Urine Turbidity Clear (Clear) 08/08/16 11:54 Urine pH 5.0 (5.0-7.0) 08/08/16 11:54 Ur Specific [place] 1.025 (1.003-1.030) 08/08/16 11:54 Urine Protein 100 mg/dl mg/dL (Negative) 08/08/16 11:54 Urine Glucose (UA) Neg mg/dL (Negative) 08/08/16 11:54 Urine Ketones 20 mg/dL (Negative) 08/08/16 11:54 Urine Blood Sm (Negative) 08/08/16 11:54 Urine Nitrite Neg (Negative) 08/08/16 11:54 Urine Bilirubin Neg (Negative) 08/08/16 11:54 Urine Urobilinogen < 2.0 mg/dL (<2.0) 08/08/16 11:54 Ur Leukocyte Esterase Neg (Negative) 08/08/16 11:54 Urine WBC (Auto) 8.0 /HPF (0.0-6.0) H 08/08/16 11:54 Urine RBC (Auto) 3.0 /HPF (0.0-6.0) 08/08/16 11:54 U Epithel Cells (Auto) 1.0 /HPF (0-13.0) 08/08/16 11:54 Urine Mucus 3+ /HPF 08/08/16 11:54
--- NOTE | 2016-08-10 16:58 | Progress Note ---
Assessment and Plan - Patient Problems (1) Pneumonia Current Visit: Yes Status: Acute Qualifiers: Pneumonia type: due to unspecified organism Aspiration pneumonia type: A Laterality: bilateral Lung location: unspecified part of lung Qualified Code (s): J18.9 - Pneumonia, unspecified organism (2) Hypoxia Current Visit: Yes Status: Acute (3) Hypertension Current Visit: No Status: Chronic Qualifiers: Hypertension type: essential hypertension Qualified Code(s): I10 - Essential (primary) hypertension (4) T2DM (type 2 diabetes mellitus) Current Visit: Yes Status: Chronic Qualifiers: Diabetes mellitus complication status: without complication Diabetes mellitus complication detail: D Diabetic retinopathy severity: D Proliferative retinopathy type: P Diabetes mellitus macular edema: D Diabetes mellitus continuous churn buttermaker insulin use: without senior care use Laterality: L Chronic kidney disease stage: C Qualified Code(s): E11.9 - Type 2 diabetes mellitus without complications (5) Hypothyroidism (acquired) Current Visit: Yes Status: Chronic (6) HLD (hyperlipidemia) Current Visit: Yes Status: Chronic Qualifiers: Hyperlipidemia type: mixed hyperlipidemia Qualified Code(s): E78.2 - Mixed hyperlipidemia (7) UTI (urinary tract infection) Current Visit: Yes Status: Acute Qualifiers: Urinary tract infection type: acute cystitis Hematuria presence: H Indwelling urinary catheter type: I Encounter type: E (8) DVT prophylaxis Current Visit: Yes Status: Acute Objective - Constitutional Vitals: Vital Signs - 12hr 08/10/16 08/10/16 08/10/16 07:47 08:00 08:16 Temperature 99.8 F H Pulse Rate Pulse Rate [ 94 H 93 H Anterior Bilateral Throughout] Pulse Rate [ 98 H Apical] Respiratory 20 Rate Respiratory 28 H 20 Rate [Anterior Bilateral Throughout] Blood Pressure Blood Pressure 106/69 [Right Arm] O2 Sat by Pulse 94 97 Oximetry 08/10/16 08/10/16 08/10/16 09:09 16:11 16:12 Temperature Pulse Rate 93 H Pulse Rate [ Anterior Bilateral Throughout] Pulse Rate [ Apical] Respiratory Rate Respiratory Rate [Anterior Bilateral Throughout] Blood Pressure 106/70 Blood Pressure [Right Arm] O2 Sat by Pulse 89 94 Oximetry - Labs CBC & Chem 7: 08/10/16 04:39 08/10/16 04:39 Labs: Abnormal lab results 08/09/16 08/09/16 08/09/16 Range/Units 11:29 16:52 17:51 WBC (4.5-11.0) K/mm3 [place] % (Auto) (0.0-7.3) % [place] # (0.0-0.8) K/mm3 Seg Neutrophils % (40.0-70.0) % Seg Neutrophils # (1.8-7.7) K/mm3 POC ABG pCO2 32.6 L (35-45) POC ABG pO2 56 L (80-105) Potassium (3.6-5.0) mmol/L Creatinine (0.7-1.2) mg/dL Glucose (65-100) mg/dL POC Glucose 138 H 140 H (70-105) Calcium (8.4-10.2) mg/dL 08/09/16 08/10/16 08/10/16 Range/Units 22:07 04:39 04:39 WBC 11.5 H (4.5-11.0) K/mm3 [place] % (Auto) 8.1 H (0.0-7.3) % [place] # 0.9 H (0.0-0.8) K/mm3 Seg Neutrophils % 75.6 H (40.0-70.0) % Seg Neutrophils # 8.7 H (1.8-7.7) K/mm3 POC ABG pCO2 (35-45) POC ABG pO2 (80-105) Potassium 3.5 L (3.6-5.0) mmol/L Creatinine 1.5 H D (0.7-1.2) mg/dL Glucose 164 H (65-100) mg/dL POC Glucose 166 H (70-105) Calcium 8.1 L (8.4-10.2) mg/dL 08/10/16 08/10/16 08/10/16 Range/Units 08:20 12:23 16:23 WBC (4.5-11.0) K/mm3 [place] % (Auto) (0.0-7.3) % [place] # (0.0-0.8) K/mm3 Seg Neutrophils % (40.0-70.0) % Seg Neutrophils # (1.8-7.7) K/mm3 POC ABG pCO2 (35-45) POC ABG pO2 (80-105) Potassium (3.6-5.0) mmol/L Creatinine (0.7-1.2) mg/dL Glucose (65-100) mg/dL POC Glucose 112 H 124 H 130 H (70-105) Calcium (8.4-10.2) mg/dL
[2016-08-10] MEDS: COZAAR PO SCH (18:37)
[2016-08-10] MEDS: NORVASC PO SCH (18:38)
--- NOTE | 2016-08-10 18:55 | Consultation ---
History of Present Illness Consult date: 08/10/16 Reason for consult: cough, chest pain, COPD History of present illness: This 61 year old female admitted with a complaint of shortness of breath, cough, wheezing and pleuritic chest pain. Patient coughing up white sputum. Denies hemoptysis. Patient denies fever and chills. Patient has multiple medical problems COPD,Hypertension,diabetes,Hypothyroidism and Hyperlipidemia..Patient has history of smoking 1/2 a pack a day for 19 years. 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 Not . Has 2 children. Past History Past Medical History: CAD, COPD, diabetes, hypertension, hyperlipidemia, hypothyroidism Past Surgical History: cholecystectomy, Other (Ilya breasst surgery) Social history: lives with family, smoking (Former smoker) Family history: hypertension Medications and Allergies Allergies Allergy/AdvReac Type Severity Reaction Status Date / Time Sulfa (Sulfonamide Allergy Itching Verified 08/08/16 11:44 Antibiotics) Home Medications Medication Instructions Recorded Confirmed Last Taken Type Cholecalciferol (Vitamin D3) 50,000 units PO QWEEK 06/09/13 08/08/16 Unknown History [Vitamin D] Levothyroxine [Synthroid] 75 mcg PO DAILY 06/09/13 08/08/16 05/01/14 History Simvastatin [Zocor TAB] 40 mg PO DAILY 06/09/13 08/08/16 04/30/14 History buPROPion SR [Wellbutrin Sr] 150 mg PO QAM 05/01/14 08/08/16 Unknown History Carvedilol [Coreg] 3.125 mg PO BID 08/08/16 08/08/16 Unknown History Losartan [Cozaar] 100 mg PO QDAY 08/08/16 08/08/16 Unknown History Sitagliptin Phosphate [Januvia] 100 mg PO 08/08/16 Unknown History Umeclidinium Brm/Vilanterol Tr 1 each IH DAILY 08/08/16 08/08/16 Unknown History [Anoro Ellipta 62.5-25 Mcg INH] amLODIPine [Norvasc] 5 mg PO DAILY 08/08/16 08/08/16 Unknown History metFORMIN [Glucophage] 500 mg PO BID 08/08/16 08/08/16 Unknown History Active Meds: Active Medications Acetaminophen (Tylenol) 650 mg PO Q4H PRN PRN Reason: Pain MILD(1-3)/Fever >100.5/KEITH Last Admin: 08/09/16 17:33 Dose: 650 mg Albuterol (Proventil) 2.[address] [facility] Amlodipine Besylate (Norvasc) [address] [facility] Last Admin: 08/10/16 18:38 Dose: Not Given Arformoterol Tartrate (Brovana Nebu) 15 [address]12[address] [facility] Last Admin: 08/10/16 07:53 Dose: 15 mcg Bisacodyl (Dulcolax) 10 mg SC QDAY PRN PRN Reason: Constipation unrelieved by MOM Budesonide (Pulmicort) 0.[address] [facility] Last Admin: 08/10/16 07:53 Dose: 0.5 mg Carvedilol (Coreg) 3.[address] [facility] Last Admin: 08/10/16 09:09 Dose: 3.125 mg Enoxaparin Sodium (Lovenox) 40 mg SUB-Q QDAY [facility] Last Admin: 08/10/16 09:10 Dose: 40 mg Hydromorphone HCl (Dilaudid) 0.5 mg IV Q3H PRN PRN Reason: Pain , Severe (7-10) Last Admin: 08/09/16 23:51 Dose: 0.5 mg Dextrose/Sodium Chloride (D5/0.45ns) 1,000 mls @ 75 mls/hr IV DIRECT [facility] Last Admin: 08/09/16 17:37 Dose: 75 mls/hr Piperacillin Sod/Tazobactam Sod (Zosyn/Ns 4.5gm/100ml) 4.5 gm in 100 mls @ 200 mls/hr IV Q8HR [facility] PRN Reason: Protocol Last Admin: 08/10/16 14:45 Dose: 200 mls/hr Levothyroxine Sodium (Synthroid) [address] [facility] Last Admin: 08/10/16 09:10 Dose: 75 mcg Linagliptin (Tradjenta) [address] [facility] Last Admin: 08/09/16 11:16 Dose: 5 mg Losartan Potassium (Cozaar) [address] [facility] Last Admin: 08/10/16 18:37 Dose: Not Given Magnesium Hydroxide (Milk Of Magnesia) 30 ml PO Q4H PRN PRN Reason: Constipation Metformin HCl (Glucophage) [address] [facility] Last Admin: 08/10/16 09:09 Dose: 500 mg Ondansetron HCl (Zofran) 4 mg IV Q8H PRN PRN Reason: N/V unrelieved by Reglan Oxycodone/Acetaminophen (Percocet 5/325) 1 tab PO Q6H PRN PRN Reason: Pain, Moderate (4-6) Simvastatin (Zocor) [address] [facility] Last Admin: 08/10/16 09:10 Dose: 40 mg Zolpidem Tartrate (Ambien) 5 mg PO QHS PRN PRN Reason: Insomnia Review of Systems All systems: negative Physical Examination Vital signs: Vital Signs Temp Pulse Resp BP Pulse Ox 102.1 F H 126 H 24 135/93 92 08/08/16 11:44 08/08/16 11:44 08/08/16 11:44 08/08/16 11:44 08/08/16 11:44 General appearance: alert, other (Mild respiratory distress at rest.) Eyes: non-icteric ENT: oropharynx moist Neck: supple, no JVD Ascultation: Bilateral: wheezes (Diffuse bilateral wheezing.), rhonchi (Diffuse bilateral ronchi.) Cardiovascular: regular rate and rhythm Gastrointestinal: normoactive bowel sounds, soft, non-tender Integumentary: normal Extremities: no cyanosis, no edema Musculoskeletal: no deformities Gait: other (Unable to assess at this time.) normal mental status, non-focal exam, pupils equal and round, CN II-XII normal mood appropriate Results - Laboratory Findings CBC and BMP: 08/10/16 04:39 08/10/16 04:39 ABG POC ABG pH 7.383 (7.35-7.45) 08/09/16 17:51 POC ABG pCO2 32.6 (35-45) L 08/09/16 17:51 POC ABG pO2 56 (80-105) L 08/09/16 17:51 POC ABG HCO3 19.4 08/09/16 17:51 POC ABG Total CO2 20 08/09/16 17:51 POC ABG O2 Sat 89 08/09/16 17:51 PT/INR, D-dimer PT 13.6 Sec. (12.2-14.9) 08/08/16 12:04 INR 1.05 (0.87-1.13) 08/08/16 12:04 Abnormal lab findings: Abnormal Labs 08/08/16 08/09/16 08/09/16 22:56 05:04 05:04 WBC Hgb 14.4 H Hct 43.1 H D [place] % (Auto) 12.9 H [place] # 1.3 H Seg Neutrophils % Seg Neutrophils # POC ABG pCO2 POC ABG pO2 Potassium Carbon Dioxide 21 L Creatinine Glucose 146 H POC Glucose 108 H Calcium AST 48 H Total Protein 6.2 L D Albumin 3.6 L 08/09/16 08/09/16 08/09/16 07:40 11:29 16:52 WBC Hgb Hct [place] % (Auto) [place] # Seg Neutrophils % Seg Neutrophils # POC ABG pCO2 POC ABG pO2 Potassium Carbon Dioxide Creatinine Glucose POC Glucose 168 H 138 H 140 H Calcium AST Total Protein Albumin 08/09/16 08/09/16 08/10/16 17:51 22:07 04:39 WBC 11.5 H Hgb Hct [place] % (Auto) 8.1 H [place] # 0.9 H Seg Neutrophils % 75.6 H Seg Neutrophils # 8.7 H POC ABG pCO2 32.6 L POC ABG pO2 56 L Potassium Carbon Dioxide Creatinine Glucose POC Glucose 166 H Calcium AST Total Protein Albumin 08/10/16 08/10/16 08/10/16 04:39 08:20 12:23 WBC Hgb Hct [place] % (Auto) [place] # Seg Neutrophils % Seg Neutrophils # POC ABG pCO2 POC ABG pO2 Potassium 3.5 L Carbon Dioxide Creatinine 1.5 H D Glucose 164 H POC Glucose 112 H 124 H Calcium 8.1 L AST Total Protein Albumin 08/10/16 16:23 WBC Hgb Hct [place] % (Auto) [place] # Seg Neutrophils % Seg Neutrophils # POC ABG pCO2 POC ABG pO2 Potassium Carbon Dioxide Creatinine Glucose POC Glucose 130 H Calcium AST Total Protein Albumin - Diagnostic Findings Chest x-ray: report reviewed (Bilateral patchy pulmonary infiltrates.), image reviewed CT scan - chest: report reviewed (No pulmonary emboli.), image reviewed Assessment and Plan This 61 year old female admitted with a complaint of shortness of breath, cough, wheezing and pleuritic chest pain. Patient coughing up white sputum. Denies hemoptysis. Patient denies fever and chills. Patient has multiple medical problems COPD,Hypertension,diabetes,Hypothyroidism and Hyperlipidemia..Patient has history of smoking 1/2 a pack a day for 19 years. 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 Not . Has 2 children. - Patient Problems (1) Hypoxia Current Visit: Yes Status: Acute Plan to address problem: Continue O2 FIO2 40%. (2) Pneumonia Current Visit: Yes Status: Acute Qualifiers: Pneumonia type: due to unspecified organism Aspiration pneumonia type: A Laterality: bilateral Lung location: unspecified part of lung Qualified Code (s): J18.9 - Pneumonia, unspecified organism Plan to address problem: Continue Zosyn. Recommend to add zithromax also. (3) UTI (urinary tract infection) Current Visit: Yes Status: Acute Qualifiers: Urinary tract infection type: acute cystitis Hematuria presence: H Indwelling urinary catheter type: I Encounter type: E Plan to address problem: Patient is on Zosyn. (4) Hypothyroidism (acquired) Current Visit: Yes Status: Chronic Plan to address problem: Management as per primary care. (5) T2DM (type 2 diabetes mellitus) Current Visit: Yes Status: Chronic Qualifiers: Diabetes mellitus complication status: without complication Diabetes mellitus complication detail: D Diabetic retinopathy severity: D Proliferative retinopathy type: P Diabetes mellitus macular edema: D Diabetes mellitus watermaster insulin use: without watermaster use Laterality: L Chronic kidney disease stage: C Qualified Code(s): E11.9 - Type 2 diabetes mellitus without complications Plan to address problem: Management as per [facility]. (6) Hypertension Current Visit: No Status: Chronic Qualifiers: Hypertension type: essential hypertension Qualified Code(s): I10 - Essential (primary) hypertension Plan to address problem: Management as per primary care. (7) COPD exacerbation Current Visit: Yes Status: Acute Plan to address problem: Possible COPD exagerbation Continue O2 supplementation. Starting on solumedral 60 mg I/V q 6 hours. Brovanna aerosol treatments q 12 hours. Albuterol/atrovent aerosol treatments q 6 hours prn for shortness of breath Continue Lovenox
[2016-08-10] MEDS: PROVENTIL IH SCH (21:03)
[2016-08-10] MEDS: PERCOCET 5/325 PO PRN (22:31)
[2016-08-10] MEDS: D5/0.45NS 1,000 ML IV SCH (22:43)
[2016-08-11] MEDS: PROVENTIL IH SCH ×4 (02:09→19:32)
[2016-08-11] MEDS: GLUCOPHAGE PO SCH (02:33)
[2016-08-11] MEDS: ZOSYN/NS 4.5GM/100ML 4.5 GM/100 ML VIAL IV SCH (06:24)
[2016-08-11 07:30] LABS: Basophils % (Auto) 0.4 % (0.0-1.8); Hematocrit 40.9 % (30.3-42.9); Hemoglobin 13.4 gm/dl (10.1-14.3); Mean Corpuscular HGB Conc 33 % (30-34); Mean Corpuscular Hemoglobin 31 pg (28-32); Mean Corpuscular Volume 96 fl (79-97); Platelet Count 168 K/mm3 (140-440); Red Blood Count 4.26 M/mm3 (3.65-5.03); Red Cell Distribution Width 14.2 % (13.2-15.2); White Blood Count 12.2 K/mm3 (4.5-11.0)
[2016-08-11] MEDS: PULMICORT IH SCH ×2 (08:38→19:32)
[2016-08-11] MEDS: BROVANA NEBU IH SCH ×2 (08:38→19:32)
[2016-08-11] MEDS: NORVASC PO SCH (10:29)
[2016-08-11] MEDS: ZOCOR PO SCH (10:30)
[2016-08-11] MEDS: SYNTHROID PO SCH (10:30)
[2016-08-11] MEDS: TRADJENTA PO SCH ×2 (10:32→10:34)
[2016-08-11] MEDS: COREG PO SCH ×2 (10:32→21:36)
[2016-08-11] MEDS: LOVENOX SUB-Q SCH (10:32)
[2016-08-11] MEDS: COZAAR PO SCH (10:34)
--- NOTE | 2016-08-11 15:03 | Progress Note ---
Assessment and Plan Assessment and plan: 1. Sepsis present on admission due to urinary tract infection and pneumonia with acute hypoxic respiratory failure -continue current IV antibiotics; cultures negative to date. Continue supplemental oxygen and nebulization treatments. WBC increasing likely due to steroids 2. Hypothyroidism-cotn medications 3. DM 2- cont meds; monitor accuchecks 4. Benign HTN - monitor BP; 5. Possible COPD- cont current breathing tx; IV solumedrol; cont brovana / albuterol / atrovent 6. DVT prophylaxis- lovenox History Interval history: f/u pneumonia, UTI Patient is seen on the bedside. Daughter is present. Continues to have shortness of breath Hospitalist Physical - Constitutional Vitals: Temp Pulse Resp BP Pulse Ox 97.8 F 84 18 88/54 93 08/11/16 07:24 08/11/16 13:17 08/11/16 13:17 08/11/16 07:24 08/11/16 10:00 General appearance: Present: no acute distress (on nasal cannula oxygen), well- nourished - EENT Eyes: Present: PERRL, EOM intact. Absent: scleral icterus, conjunctival injection ENT: hearing intact, clear oral mucosa, no oropharyngeal erythema, no poor dentition - Neck Neck: Present: supple, normal ROM. Absent: enlarged thyroid, masses or JVD, cervical LAD - Respiratory Respiratory effort: other (nasal cannula oxygen) Respiratory: bilateral: diminished, negative: rales, rhonchi, wheezing - Cardiovascular Rhythm: regular Heart Sounds: Present: S1 & S2. Absent: gallop - Extremities Extremities: no ischemia, pulses intact, pulses symmetrical, No edema Peripheral Pulses: within normal limits - Abdominal General gastrointestinal: soft, non-tender, non-distended - Integumentary Integumentary: Present: clear - Psychiatric Psychiatric: appropriate mood/affect, intact judgment & insight, cooperative - Neurologic Neurologic: CNII-XII intact, moves all extremities Results - Labs CBC & Chem 7: 08/11/16 06:45 08/10/16 04:39 Labs: Laboratory Last Values WBC 12.2 K/mm3 (4.5-11.0) H 08/11/16 06:45 RBC 4.26 M/mm3 (3.65-5.03) 08/11/16 06:45 Hgb 13.4 gm/dl (10.1-14.3) 08/11/16 06:45 Hct 40.9 % (30.3-42.9) 08/11/16 06:45 MCV 96 fl (79-97) 08/11/16 06:45 MCH 31 pg (28-32) 08/11/16 06:45 MCHC 33 % (30-34) 08/11/16 06:45 RDW 14.2 % (13.2-15.2) 08/11/16 06:45 Plt Count 168 K/mm3 (140-440) 08/11/16 06:45 Lymph % (Auto) 13.7 % (13.4-35.0) 08/11/16 06:45 [place] % (Auto) 9.2 % (0.0-7.3) H 08/11/16 06:45 Eos % (Auto) 1.0 % (0.0-4.3) 08/11/16 06:45 Baso % (Auto) 0.4 % (0.0-1.8) 08/11/16 06:45 Lymph # 1.7 K/mm3 (1.2-5.4) 08/11/16 06:45 [place] # 1.1 K/mm3 (0.0-0.8) H 08/11/16 06:45 Eos # 0.1 K/mm3 (0.0-0.4) 08/11/16 06:45 Baso # 0.0 K/mm3 (0.0-0.1) 08/11/16 06:45 Seg Neutrophils % 75.7 % (40.0-70.0) H 08/11/16 06:45 Seg Neutrophils # 9.2 K/mm3 (1.8-7.7) H 08/11/16 06:45 PT 13.6 Sec. (12.2-14.9) 08/08/16 12:04 INR 1.05 (0.87-1.13) 08/08/16 12:04 APTT 28.6 Sec. (24.2-36.6) 08/08/16 14:04 POC ABG pH 7.383 (7.35-7.45) 08/09/16 17:51 POC ABG pCO2 32.6 (35-45) L 08/09/16 17:51 POC ABG pO2 56 (80-105) L 08/09/16 17:51 POC ABG HCO3 19.4 08/09/16 17:51 POC ABG Total CO2 20 08/09/16 17:51 POC ABG O2 Sat 89 08/09/16 17:51 POC ABG Base Excess -6 08/09/16 17:51 VBG pH 7.317 (7.320-7.420) L 08/08/16 12:04 FiO2 26 % 08/09/16 17:51 Sodium 140 mmol/L (137-145) 08/10/16 04:39 Potassium 3.5 mmol/L (3.6-5.0) L 08/10/16 04:39 Chloride 103.9 mmol/L (98-107) 08/10/16 04:39 Carbon Dioxide 23 mmol/L (22-30) 08/10/16 04:39 Anion Gap 17 mmol/L 08/10/16 04:39 BUN 10 mg/dL (7-17) 08/10/16 04:39 Creatinine 1.5 mg/dL (0.7-1.2) H D 08/10/16 04:39 Estimated GFR 43 ml/min 08/10/16 04:39 BUN/Creatinine Ratio 6.66 % 08/10/16 04:39 Glucose 164 mg/dL (65-100) H 08/10/16 04:39 POC Glucose 132 (70-105) H 08/11/16 06:27 Hemoglobin A1c 7.0 % (4-6) H 08/08/16 12:04 Lactic Acid 0.9 mmol/L (0.7-2.0) 08/09/16 14:54 Calcium 8.1 mg/dL (8.4-10.2) L 08/10/16 04:39 Total Bilirubin 0.6 mg/dL (0.1-1.2) 08/09/16 05:04 AST 48 units/L (5-40) H 08/09/16 05:04 ALT 26 units/L (7-56) 08/09/16 05:04 Alkaline Phosphatase 62 units/L (35-129) 08/09/16 05:04 Total Creatine Kinase 976 units/L (30-135) H 08/08/16 12:04 CK-MB (CK-2) 4.1 ng/mL (0.0-4.0) H 08/08/16 12:04 CK-MB (CK-2) Rel Index 0.4 (0-4) 08/08/16 12:04 Troponin T < 0.010 ng/mL (0.00-0.029) 08/08/16 12:04 NT-Pro-B Natriuret Pep 25.33 pg/mL (0-900) 08/10/16 11:06 Total Protein 6.2 g/dL (6.3-8.2) L D 08/09/16 05:04 Albumin 3.6 g/dL (3.9-5) L 08/09/16 05:04 Albumin/Globulin Ratio 1.4 % 08/09/16 05:04 TSH 1.000 mlU/mL (0.270-4.200) 08/10/16 11:06 Urine Color Yellow (Yellow) 08/08/16 11:54 Urine Turbidity Clear (Clear) 08/08/16 11:54 Urine pH 5.0 (5.0-7.0) 08/08/16 11:54 Ur Specific [place] 1.025 (1.003-1.030) 08/08/16 11:54 Urine Protein 100 mg/dl mg/dL (Negative) 08/08/16 11:54 Urine Glucose (UA) Neg mg/dL (Negative) 08/08/16 11:54 Urine Ketones 20 mg/dL (Negative) 08/08/16 11:54 Urine Blood Sm (Negative) 08/08/16 11:54 Urine Nitrite Neg (Negative) 08/08/16 11:54 Urine Bilirubin Neg (Negative) 08/08/16 11:54 Urine Urobilinogen < 2.0 mg/dL (<2.0) 08/08/16 11:54 Ur Leukocyte Esterase Neg (Negative) 08/08/16 11:54 Urine WBC (Auto) 8.0 /HPF (0.0-6.0) H 08/08/16 11:54 Urine RBC (Auto) 3.0 /HPF (0.0-6.0) 08/08/16 11:54 U Epithel Cells (Auto) 1.0 /HPF (0-13.0) 08/08/16 11:54 Urine Mucus 3+ /HPF 08/08/16 11:54 Microbiology 08/08/16 12:04 Peripheral/Venous Blood Culture - Preliminary NO GROWTH AFTER 72 HOURS 08/08/16 12:04 Peripheral/Venous Blood Culture - Preliminary NO GROWTH AFTER 72 HOURS 08/08/16 14:34 Urine,Clean Catch Urine Culture - Final - Imaging and Cardiology Chest x-ray: report reviewed (Chest [id number] bilateral pulmonary infiltrates )
[2016-08-11] MEDS: D5/0.45NS 1,000 ML IV SCH (20:07)
--- NOTE | 2016-08-11 20:09 | Progress Note ---
Assessment and Plan This 61 year old female admitted with a complaint of shortness of breath, cough, wheezing and pleuritic chest pain. Patient coughing up white sputum. Denies hemoptysis. Patient denies fever and chills. Patient has multiple medical problems COPD,Hypertension,diabetes,Hypothyroidism and Hyperlipidemia..Patient has history of smoking 1/2 a pack a day for 19 years. 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 Not . Has 2 children. Patient says breathing better than yesterday..Patient is on 40% FIO2 venturi mask and O2 satuaration 92%. - Patient Problems (1) Hypoxia Current Visit: Yes Status: Acute Plan to address problem: Continue O2 FIO2 40%. (2) Pneumonia Current Visit: Yes Status: Acute Qualifiers: Pneumonia type: due to unspecified organism Aspiration pneumonia type: A Laterality: bilateral Lung location: unspecified part of lung Qualified Code (s): J18.9 - Pneumonia, unspecified organism Plan to address problem: Continue Zosyn. Recommend to add zithromax also. (3) UTI (urinary tract infection) Current Visit: Yes Status: Acute Qualifiers: Urinary tract infection type: acute cystitis Hematuria presence: H Indwelling urinary catheter type: I Encounter type: E Plan to address problem: Patient is on Zosyn. (4) Hypothyroidism (acquired) Current Visit: Yes Status: Chronic Plan to address problem: Patient is on Levothyroxine. Management as per primary care. 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 (6) Hypertension Current Visit: No Status: Chronic Qualifiers: Hypertension type: essential hypertension Qualified Code(s): I10 - Essential (primary) hypertension Plan to address problem: Management as per primary care. (7) COPD exacerbation Current Visit: Yes Status: Acute Plan to address problem: Possible COPD exagerbation Continue O2 supplementation. Starting on solumedral 60 mg I/V q 6 hours. Brovanna aerosol treatments q 12 hours. Albuterol/atrovent aerosol treatments q 6 hours prn for shortness of breath Continue Lovenox Subjective Date of service: 08/11/16 Interval history: Patient says breathing better than yesterday..Patient is on 40% FIO2 venturi mask and O2 satuaration 92%. Objective Vital Signs - 12hr 08/11/16 08/11/16 08/11/16 08:38 08:39 08:43 Temperature Pulse Rate [ 88 90 Anterior Bilateral Throughout] Pulse Rate [ Apical] Respiratory Rate Respiratory 18 16 Rate [Anterior Bilateral Throughout] Blood Pressure [Right Arm] O2 Sat by Pulse 92 Oximetry 08/11/16 08/11/16 08/11/16 10:00 13:02 13:17 Temperature Pulse Rate [ 86 84 Anterior Bilateral Throughout] Pulse Rate [ Apical] Respiratory Rate Respiratory 16 18 Rate [Anterior Bilateral Throughout] Blood Pressure [Right Arm] O2 Sat by Pulse 93 Oximetry 08/11/16 15:14 Temperature 98.1 F Pulse Rate [ Anterior Bilateral Throughout] Pulse Rate [ 94 H Apical] Respiratory 16 Rate Respiratory Rate [Anterior Bilateral Throughout] Blood Pressure 133/69 [Right Arm] O2 Sat by Pulse 98 Oximetry Constitutional: alert, other (Mild respiratory distress at rest.) Eyes: non-icteric ENT: oropharynx moist Neck: supple, no JVD Ascultation: Bilateral: wheezes (Diffuse bilateral wheezing.), rhonchi (Diffuse bilateral ronchi.) Cardiovascular: regular rate and rhythm Gastrointestinal: normoactive bowel sounds, soft, non-tender Integumentary: normal Extremities: no cyanosis, no edema Neurologic: normal mental status, non-focal exam, pupils equal and round, CN II- XII normal Psychiatric: mood appropriate CBC and BMP: 08/11/16 06:45 08/10/16 04:39 ABG, PT/INR, D-dimer: ABG POC ABG pH 7.383 (7.35-7.45) 08/09/16 17:51 POC ABG pCO2 32.6 (35-45) L 08/09/16 17:51 POC ABG pO2 56 (80-105) L 08/09/16 17:51 POC ABG HCO3 19.4 08/09/16 17:51 POC ABG Total CO2 20 08/09/16 17:51 POC ABG O2 Sat 89 08/09/16 17:51 PT/INR, D-dimer PT 13.6 Sec. (12.2-14.9) 08/08/16 12:04 INR 1.05 (0.87-1.13) 08/08/16 12:04 Abnormal lab findings: Abnormal Labs 08/08/16 08/09/16 08/09/16 22:56 05:04 05:04 WBC Hgb 14.4 H Hct 43.1 H D [place] % (Auto) 12.9 H [place] # 1.3 H Seg Neutrophils % Seg Neutrophils # POC ABG pCO2 POC ABG pO2 Potassium Carbon Dioxide 21 L Creatinine Glucose 146 H POC Glucose 108 H Calcium AST 48 H Total Protein 6.2 L D Albumin 3.6 L 08/09/16 08/09/16 08/09/16 07:40 11:29 16:52 WBC Hgb Hct [place] % (Auto) [place] # Seg Neutrophils % Seg Neutrophils # POC ABG pCO2 POC ABG pO2 Potassium Carbon Dioxide Creatinine Glucose POC Glucose 168 H 138 H 140 H Calcium AST Total Protein Albumin 08/09/16 08/09/16 08/10/16 17:51 22:07 04:39 WBC 11.5 H Hgb Hct [place] % (Auto) 8.1 H [place] # 0.9 H Seg Neutrophils % 75.6 H Seg Neutrophils # 8.7 H POC ABG pCO2 32.6 L POC ABG pO2 56 L Potassium Carbon Dioxide Creatinine Glucose POC Glucose 166 H Calcium AST Total Protein Albumin 08/10/16 08/10/16 08/10/16 04:39 08:20 12:23 WBC Hgb Hct [place] % (Auto) [place] # Seg Neutrophils % Seg Neutrophils # POC ABG pCO2 POC ABG pO2 Potassium 3.5 L Carbon Dioxide Creatinine 1.5 H D Glucose 164 H POC Glucose 112 H 124 H Calcium 8.1 L AST Total Protein Albumin 08/10/16 08/10/16 08/10/16 16:23 20:49 23:25 WBC Hgb Hct [place] % (Auto) [place] # Seg Neutrophils % Seg Neutrophils # POC ABG pCO2 POC ABG pO2 Potassium Carbon Dioxide Creatinine Glucose POC Glucose 130 H 123 H 130 H Calcium AST Total Protein Albumin 08/11/16 08/11/16 08/11/16 06:27 06:45 12:35 WBC 12.2 H Hgb Hct [place] % (Auto) 9.2 H [place] # 1.1 H Seg Neutrophils % 75.7 H Seg Neutrophils # 9.2 H POC ABG pCO2 POC ABG pO2 Potassium Carbon Dioxide Creatinine Glucose POC Glucose 132 H 170 H Calcium AST Total Protein Albumin 08/11/16 16:14 WBC Hgb Hct [place] % (Auto) [place] # Seg Neutrophils % Seg Neutrophils # POC ABG pCO2 POC ABG pO2 Potassium Carbon Dioxide Creatinine Glucose POC Glucose 248 H Calcium AST Total Protein Albumin
[2016-08-11] MEDS: MUCINEX ER PO SCH (21:36)
[2016-08-11] MEDS: PERCOCET 5/325 PO PRN (21:48)
[2016-08-12] MEDS: ZOSYN/NS 4.5GM/100ML 4.5 GM/100 ML VIAL IV SCH ×4 (00:48→15:24)
[2016-08-12] MEDS: PROVENTIL IH SCH ×4 (01:27→22:00)
[2016-08-12 05:37] LABS: Basophils % (Auto) 0.1 % (0.0-1.8); Hematocrit 40.5 % (30.3-42.9); Hemoglobin 13.4 gm/dl (10.1-14.3); Mean Corpuscular HGB Conc 33 % (30-34); Mean Corpuscular Hemoglobin 31 pg (28-32); Mean Corpuscular Volume 95 fl (79-97); Platelet Count 224 K/mm3 (140-440); Red Blood Count 4.27 M/mm3 (3.65-5.03); Red Cell Distribution Width 14.4 % (13.2-15.2); White Blood Count 16.7 K/mm3 (4.5-11.0)
[2016-08-12] MEDS: BROVANA NEBU IH SCH ×2 (08:15→19:56)
[2016-08-12] MEDS: PULMICORT IH SCH ×2 (08:15→19:56)
[2016-08-12] MEDS: COREG PO SCH ×2 (10:39→21:34)
[2016-08-12] MEDS: ZOCOR PO SCH (10:39)
[2016-08-12] MEDS: NORVASC PO SCH (10:39)
[2016-08-12] MEDS: LOVENOX SUB-Q SCH (10:39)
[2016-08-12] MEDS: TRADJENTA PO SCH (10:40)
[2016-08-12] MEDS: MUCINEX ER PO SCH ×2 (10:40→21:33)
[2016-08-12] MEDS: SYNTHROID PO SCH (10:40)
[2016-08-12] MEDS: COZAAR PO SCH (10:40)
[2016-08-12] MEDS: D5/0.45NS 1,000 ML IV SCH (12:00)
--- NOTE | 2016-08-12 12:39 | Progress Note ---
Assessment and Plan Assessment and plan: 1. Sepsis present on admission due to urinary tract infection and pneumonia with acute hypoxic respiratory failure -increasing wbc likely due to steroids- will taper; continue current IV antibiotics; cultures negative to date. Wean supplemental oxygen as tolerated and nebulization treatments. 2. Hypothyroidism-cotn medications 3. DM 2- cont meds; monitor accuchecks 4. Benign HTN - monitor BP; 5. Possible COPD- cont current breathing tx; wean IV solumedrol; cont brovana / albuterol / atrovent 6. DVT prophylaxis- lovenox History Interval history: f/u pneumonia, UTI Patient is seen on the bedside. Fundus of breath is improving, remains on 40% FiO2 Hospitalist Physical - Constitutional Vitals: Temp Pulse Resp BP Pulse Ox 98.0 F 94 H 16 130/78 100 08/12/16 08:26 08/12/16 08:30 08/12/16 08:30 08/12/16 10:39 08/12/16 08:26 General appearance: Present: no acute distress (40% Venturi mask), well- nourished - EENT Eyes: Present: PERRL, EOM intact. Absent: scleral icterus, conjunctival injection ENT: hearing intact, clear oral mucosa, no oropharyngeal erythema, no poor dentition - Neck Neck: Present: supple, normal ROM. Absent: enlarged thyroid, masses or JVD - Respiratory Respiratory effort: normal Respiratory: bilateral: diminished, wheezing, negative: rales, rhonchi - Cardiovascular Rhythm: regular Heart Sounds: Present: S1 & S2. Absent: gallop - Extremities Extremities: no ischemia, pulses intact, pulses symmetrical, No edema Peripheral Pulses: within normal limits - Abdominal General gastrointestinal: soft, non-tender, non-distended, normal bowel sounds - Integumentary Integumentary: Present: clear - Psychiatric Psychiatric: appropriate mood/affect, cooperative - Neurologic Neurologic: CNII-XII intact, focal deficits Results - Labs CBC & Chem 7: 08/12/16 05:15 08/10/16 04:39 Labs: Laboratory Last Values WBC 16.7 K/mm3 (4.5-11.0) H 08/12/16 05:15 RBC 4.27 M/mm3 (3.65-5.03) 08/12/16 05:15 Hgb 13.4 gm/dl (10.1-14.3) 08/12/16 05:15 Hct 40.5 % (30.3-42.9) 08/12/16 05:15 MCV 95 fl (79-97) 08/12/16 05:15 MCH 31 pg (28-32) 08/12/16 05:15 MCHC 33 % (30-34) 08/12/16 05:15 RDW 14.4 % (13.2-15.2) 08/12/16 05:15 Plt Count 224 K/mm3 (140-440) 08/12/16 05:15 Lymph % (Auto) 8.9 % (13.4-35.0) L 08/12/16 05:15 [place] % (Auto) 6.3 % (0.0-7.3) 08/12/16 05:15 Eos % (Auto) 0.0 % (0.0-4.3) 08/12/16 05:15 Baso % (Auto) 0.1 % (0.0-1.8) 08/12/16 05:15 Lymph # 1.5 K/mm3 (1.2-5.4) 08/12/16 05:15 [place] # 1.0 K/mm3 (0.0-0.8) H 08/12/16 05:15 Eos # 0.0 K/mm3 (0.0-0.4) 08/12/16 05:15 Baso # 0.0 K/mm3 (0.0-0.1) 08/12/16 05:15 Seg Neutrophils % 84.7 % (40.0-70.0) H 08/12/16 05:15 Seg Neutrophils # 14.1 K/mm3 (1.8-7.7) H 08/12/16 05:15 PT 13.6 Sec. (12.2-14.9) 08/08/16 12:04 INR 1.05 (0.87-1.13) 08/08/16 12:04 APTT 28.6 Sec. (24.2-36.6) 08/08/16 14:04 POC ABG pH 7.383 (7.35-7.45) 08/09/16 17:51 POC ABG pCO2 32.6 (35-45) L 08/09/16 17:51 POC ABG pO2 56 (80-105) L 08/09/16 17:51 POC ABG HCO3 19.4 08/09/16 17:51 POC ABG Total CO2 20 08/09/16 17:51 POC ABG O2 Sat 89 08/09/16 17:51 POC ABG Base Excess -6 08/09/16 17:51 VBG pH 7.317 (7.320-7.420) L 08/08/16 12:04 FiO2 26 % 08/09/16 17:51 Sodium 140 mmol/L (137-145) 08/10/16 04:39 Potassium 3.5 mmol/L (3.6-5.0) L 08/10/16 04:39 Chloride 103.9 mmol/L (98-107) 08/10/16 04:39 Carbon Dioxide 23 mmol/L (22-30) 08/10/16 04:39 Anion Gap 17 mmol/L 08/10/16 04:39 BUN 10 mg/dL (7-17) 08/10/16 04:39 Creatinine 1.5 mg/dL (0.7-1.2) H D 08/10/16 04:39 Estimated GFR 43 ml/min 08/10/16 04:39 BUN/Creatinine Ratio 6.66 % 08/10/16 04:39 Glucose 164 mg/dL (65-100) H 08/10/16 04:39 POC Glucose 255 (70-105) H 08/12/16 12:26 Hemoglobin A1c 7.0 % (4-6) H 08/08/16 12:04 Lactic Acid 0.9 mmol/L (0.7-2.0) 08/09/16 14:54 Calcium 8.1 mg/dL (8.4-10.2) L 08/10/16 04:39 Total Bilirubin 0.6 mg/dL (0.1-1.2) 08/09/16 05:04 AST 48 units/L (5-40) H 08/09/16 05:04 ALT 26 units/L (7-56) 08/09/16 05:04 Alkaline Phosphatase 62 units/L (35-129) 08/09/16 05:04 Total Creatine Kinase 976 units/L (30-135) H 08/08/16 12:04 CK-MB (CK-2) 4.1 ng/mL (0.0-4.0) H 08/08/16 12:04 CK-MB (CK-2) Rel Index 0.4 (0-4) 08/08/16 12:04 Troponin T < 0.010 ng/mL (0.00-0.029) 08/08/16 12:04 NT-Pro-B Natriuret Pep 25.33 pg/mL (0-900) 08/10/16 11:06 Total Protein 6.2 g/dL (6.3-8.2) L D 08/09/16 05:04 Albumin 3.6 g/dL (3.9-5) L 08/09/16 05:04 Albumin/Globulin Ratio 1.4 % 08/09/16 05:04 TSH 1.000 mlU/mL (0.270-4.200) 08/10/16 11:06 Urine Color Yellow (Yellow) 08/08/16 11:54 Urine Turbidity Clear (Clear) 08/08/16 11:54 Urine pH 5.0 (5.0-7.0) 08/08/16 11:54 Ur Specific [place] 1.025 (1.003-1.030) 08/08/16 11:54 Urine Protein 100 mg/dl mg/dL (Negative) 08/08/16 11:54 Urine Glucose (UA) Neg mg/dL (Negative) 08/08/16 11:54 Urine Ketones 20 mg/dL (Negative) 08/08/16 11:54 Urine Blood Sm (Negative) 08/08/16 11:54 Urine Nitrite Neg (Negative) 08/08/16 11:54 Urine Bilirubin Neg (Negative) 08/08/16 11:54 Urine Urobilinogen < 2.0 mg/dL (<2.0) 08/08/16 11:54 Ur Leukocyte Esterase Neg (Negative) 08/08/16 11:54 Urine WBC (Auto) 8.0 /HPF (0.0-6.0) H 08/08/16 11:54 Urine RBC (Auto) 3.0 /HPF (0.0-6.0) 08/08/16 11:54 U Epithel Cells (Auto) 1.0 /HPF (0-13.0) 08/08/16 11:54 Urine Mucus 3+ /HPF 08/08/16 11:54 Microbiology 02/11/17 12:04 Peripheral/Venous Blood Culture - Preliminary NO GROWTH AFTER 4 DAYS 08/08/16 12:04 Peripheral/Venous Blood Culture - Preliminary NO GROWTH AFTER 4 DAYS 08/08/16 14:34 Urine,Clean Catch Urine Culture - Final
--- NOTE | 2016-08-12 20:00 | Progress Note ---
Assessment and Plan This 61 year old female admitted with a complaint of shortness of breath, cough, wheezing and pleuritic chest pain. Patient coughing up white sputum. Denies hemoptysis. Patient denies fever and chills. Patient has multiple medical problems COPD,Hypertension,diabetes,Hypothyroidism and Hyperlipidemia..Patient has history of smoking 1/2 a pack a day for 19 years. 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 Not . Has 2 children. Patient says breathing better.Patient is on 40% FIO2 venturi mask and O2 satuaration 99%. Weaning O2 to 3 litres via nasal canula. - Patient Problems (1) Hypoxia Current Visit: Yes Status: Acute Plan to address problem: Patients O2 satuaration 99% on FIO2 40%. Weaning the O2 3 litres via nasal canula. ABGs on room air tomorrow. (2) Pneumonia Current Visit: Yes Status: Acute Qualifiers: Pneumonia type: due to unspecified organism Aspiration pneumonia type: A Laterality: bilateral Lung location: unspecified part of lung Qualified Code (s): J18.9 - Pneumonia, unspecified organism Plan to address problem: Continue Zosyn. Recommend to add zithromax also. (3) UTI (urinary tract infection) Current Visit: Yes Status: Acute Qualifiers: Urinary tract infection type: acute cystitis Hematuria presence: H Indwelling urinary catheter type: I Encounter type: E Plan to address problem: Patient is on Zosyn. (4) Hypothyroidism (acquired) Current Visit: Yes Status: Chronic Plan to address problem: Patient is on Levothyroxine. Management as per primary care. (5) T2DM (type 2 diabetes mellitus) Current Visit: Yes Status: Chronic Qualifiers: Diabetes mellitus complication status: without complication Diabetes mellitus complication detail: D Diabetic retinopathy severity: D Proliferative retinopathy type: P Diabetes mellitus macular edema: D Diabetes mellitus custodial insulin use: without custodial use Laterality: L Chronic kidney disease stage: C Qualified Code(s): E11.9 - Type 2 diabetes mellitus without complications Plan to address problem: Management as per [facility] care. (6) Hypertension Current Visit: No Status: Chronic Qualifiers: Hypertension type: essential hypertension Qualified Code(s): I10 - Essential (primary) hypertension Plan to address problem: Management as per primary care. (7) COPD exacerbation Current Visit: Yes Status: Acute Plan to address problem: Possible COPD exagerbation Continue O2 supplementation. Starting on solumedral 60 mg I/V q 6 hours. Brovanna aerosol treatments q 12 hours. Albuterol/atrovent aerosol treatments q 6 hours prn for shortness of breath Continue Lovenox Subjective Date of service: 08/12/16 Interval history: Patient says breathing better.Patient is on 40% FIO2 venturi mask and O2 satuaration 99%. Weaning O2 to 3 litres via nasal canula. Objective Vital Signs - 12hr 08/12/16 08/12/16 08/12/16 08:15 08:17 08:26 Temperature 98.0 F Pulse Rate [ 90 Anterior Bilateral Throughout] Pulse Rate [ 78 Apical] Respiratory 20 Rate Respiratory 18 Rate [Anterior Bilateral Throughout] Blood Pressure Blood Pressure 130/65 [Right Arm] O2 Sat by Pulse 95 100 Oximetry 08/12/16 08/12/16 08/12/16 08:30 10:39 13:25 Temperature Pulse Rate [ 94 H 92 H Anterior Bilateral Throughout] Pulse Rate [ Apical] Respiratory Rate Respiratory 16 16 Rate [Anterior Bilateral Throughout] Blood Pressure 130/78 Blood Pressure [Right Arm] O2 Sat by Pulse Oximetry 08/12/16 08/12/16 13:41 16:27 Temperature 98.1 F Pulse Rate [ 96 H Anterior Bilateral Throughout] Pulse Rate [ 92 H Apical] Respiratory 20 Rate Respiratory 16 Rate [Anterior Bilateral Throughout] Blood Pressure Blood Pressure 139/66 [Right Arm] O2 Sat by Pulse Oximetry Constitutional: alert, other (Mild respiratory distress at rest.) Eyes: non-icteric ENT: oropharynx moist Neck: supple, no JVD Ascultation: Bilateral: wheezes (Diffuse bilateral wheezing.), rhonchi (Diffuse bilateral ronchi.) Cardiovascular: regular rate and rhythm Gastrointestinal: normoactive bowel sounds, soft, non-tender Integumentary: normal Extremities: no cyanosis, no edema Neurologic: normal mental status, non-focal exam, pupils equal and round, CN II- XII normal Psychiatric: mood appropriate CBC and BMP: 08/12/16 05:15 08/10/16 04:39 ABG, PT/INR, D-dimer: ABG POC ABG pH 7.383 (7.35-7.45) 08/09/16 17:51 POC ABG pCO2 32.6 (35-45) L 08/09/16 17:51 POC ABG pO2 56 (80-105) L 08/09/16 17:51 POC ABG HCO3 19.4 08/09/16 17:51 POC ABG Total CO2 20 08/09/16 17:51 POC ABG O2 Sat 89 08/09/16 17:51 PT/INR, D-dimer PT 13.6 Sec. (12.2-14.9) 08/08/16 12:04 INR 1.05 (0.87-1.13) 08/08/16 12:04 Abnormal lab findings: Abnormal Labs 08/08/16 08/09/16 08/09/16 22:56 05:04 05:04 WBC Hgb 14.4 H Hct 43.1 H D Lymph % (Auto) [place] % (Auto) 12.9 H [place] # 1.3 H Seg Neutrophils % Seg Neutrophils # POC ABG pCO2 POC ABG pO2 Potassium Carbon Dioxide 21 L Creatinine Glucose 146 H POC Glucose 108 H Calcium AST 48 H Total Protein 6.2 L D Albumin 3.6 L 08/09/16 08/09/16 08/09/16 07:40 11:29 16:52 WBC Hgb Hct Lymph % (Auto) [place] % (Auto) [place] # Seg Neutrophils % Seg Neutrophils # POC ABG pCO2 POC ABG pO2 Potassium Carbon Dioxide Creatinine Glucose POC Glucose 168 H 138 H 140 H Calcium AST Total Protein Albumin 08/09/16 08/09/16 08/10/16 17:51 22:07 04:39 WBC 11.5 H Hgb Hct Lymph % (Auto) [place] % (Auto) 8.1 H [place] # 0.9 H Seg Neutrophils % 75.6 H Seg Neutrophils # 8.7 H POC ABG pCO2 32.6 L POC ABG pO2 56 L Potassium Carbon Dioxide Creatinine Glucose POC Glucose 166 H Calcium AST Total Protein Albumin 08/10/16 08/10/16 08/10/16 04:39 08:20 12:23 WBC Hgb Hct Lymph % (Auto) [place] % (Auto) [place] # Seg Neutrophils % Seg Neutrophils # POC ABG pCO2 POC ABG pO2 Potassium 3.5 L Carbon Dioxide Creatinine 1.5 H D Glucose 164 H POC Glucose 112 H 124 H Calcium 8.1 L AST Total Protein Albumin 08/10/16 08/10/16 08/10/16 16:23 20:49 23:25 WBC Hgb Hct Lymph % (Auto) [place] % (Auto) [place] # Seg Neutrophils % Seg Neutrophils # POC ABG pCO2 POC ABG pO2 Potassium Carbon Dioxide Creatinine Glucose POC Glucose 130 H 123 H 130 H Calcium AST Total Protein Albumin 08/11/16 08/11/16 08/11/16 06:27 06:45 12:35 WBC 12.2 H Hgb Hct Lymph % (Auto) [place] % (Auto) 9.2 H [place] # 1.1 H Seg Neutrophils % 75.7 H Seg Neutrophils # 9.2 H POC ABG pCO2 POC ABG pO2 Potassium Carbon Dioxide Creatinine Glucose POC Glucose 132 H 170 H Calcium AST Total Protein Albumin 08/11/16 08/11/16 08/12/16 16:14 21:55 05:15 WBC 16.7 H Hgb Hct Lymph % (Auto) 8.9 L [place] % (Auto) [place] # 1.0 H Seg Neutrophils % 84.7 H Seg Neutrophils # 14.1 H POC ABG pCO2 POC ABG pO2 Potassium Carbon Dioxide Creatinine Glucose POC Glucose 248 H 196 H Calcium AST Total Protein Albumin 08/12/16 08/12/16 08/12/16 06:32 12:26 16:32 WBC Hgb Hct Lymph % (Auto) [place] % (Auto) [place] # Seg Neutrophils % Seg Neutrophils # POC ABG pCO2 POC ABG pO2 Potassium Carbon Dioxide Creatinine Glucose POC Glucose 177 H 255 H 164 H Calcium AST Total Protein Albumin
[2016-08-12] MEDS: PERCOCET 5/325 PO PRN (21:34)
[2016-08-13] MEDS: PROVENTIL IH SCH ×4 (02:00→19:32)
[2016-08-13] MEDS: ZOSYN/NS 4.5GM/100ML 4.5 GM/100 ML VIAL IV SCH ×3 (05:29→15:02)
[2016-08-13 08:06] LABS: Hematocrit 39.8 % (30.3-42.9); Hemoglobin 12.9 gm/dl (10.1-14.3); Mean Corpuscular HGB Conc 32 % (30-34); Mean Corpuscular Hemoglobin 31 pg (28-32); Mean Corpuscular Volume 96 fl (79-97); Platelet Count 331 K/mm3 (140-440); Red Blood Count 4.17 M/mm3 (3.65-5.03); Red Cell Distribution Width 14.3 % (13.2-15.2)
[2016-08-13] MEDS: BROVANA NEBU IH SCH ×2 (08:11→19:31)
[2016-08-13] MEDS: PULMICORT IH SCH ×2 (08:11→19:32)
[2016-08-13 08:12] LABS: White Blood Count 20.3 K/mm3 (4.5-11.0)
[2016-08-13 08:40] LABS: ISTAT Base Excess 1; ISTAT PCO2 41.8 (35-45); ISTAT PH 7.402 (7.35-7.45); ISTAT PO2 46 (80-105); ISTAT SO2 82; ISTAT TCO2 27
[2016-08-13] MEDS ORDERED: LASIX IV ONE (08:46)
[2016-08-13 08:48] LABS: Basophils % (Manual) 0 % (0.0-1.8); Blastocytes % (Manual) 0 %; Eosinophils % (Manual) 0 % (0.0-4.3)
[2016-08-13 08:49] LABS: Diff Status Complete; Platelet Estimate Consistent w Auto
--- NOTE | 2016-08-13 08:51 | XRay Report ---
Chest 2 views: Compared to 08/09/06. History: COPD with exacerbation. Findings: Normal cardiomediastinal silhouette. Trachea is midline. Airspace bilateral lower lobes predominantly. Normal CP angles. Impression: Bilateral pneumonia.
[2016-08-13] MEDS: MUCINEX ER PO SCH ×2 (10:24→22:26)
[2016-08-13] MEDS: COZAAR PO SCH (10:26)
[2016-08-13] MEDS: SYNTHROID PO SCH (10:27)
[2016-08-13] MEDS: LOVENOX SUB-Q SCH (10:27)
[2016-08-13] MEDS: COREG PO SCH ×2 (10:27→22:26)
[2016-08-13] MEDS: NORVASC PO SCH (10:28)
[2016-08-13] MEDS: TRADJENTA PO SCH (10:28)
[2016-08-13] MEDS: ZOCOR PO SCH (10:28)
--- NOTE | 2016-08-13 12:11 | Progress Note ---
Assessment and Plan Assessment and plan: 1. Sepsis present on admission due to urinary tract infection and pneumonia with acute hypoxic respiratory failure -increasing wbc; will add vancomycin; continue current IV Zosyn; cultures negative to date. Wean supplemental oxygen as tolerated and nebulization treatments. Afebrile; f/u pulmonary for further recommendations 2. Hypothyroidism-cotn medications 3. DM 2- cont meds; monitor accuchecks 4. Benign HTN - monitor BP; 5. Possible COPD- cont current breathing tx; wean IV solumedrol; cont brovana / albuterol / atrovent 6. DVT prophylaxis- lovenox History Interval history: f/u pneumonia, UTI Patient is seen on the bedside; more SOB today after coughing; being nebulized Hospitalist Physical - Constitutional Vitals: Temp Pulse Resp BP Pulse Ox 98.0 F 104 H 24 170/80 95 08/13/16 08:40 08/13/16 10:26 08/13/16 08:40 08/13/16 10:27 08/13/16 08:40 General appearance: Present: no acute distress (40% Venturi mask), well- nourished - EENT Eyes: Present: PERRL, EOM intact. Absent: scleral icterus, conjunctival injection ENT: hearing intact, clear oral mucosa, no oropharyngeal erythema, no poor dentition - Respiratory Respiratory effort: normal Respiratory: negative: diminished, rales, rhonchi, wheezing - Cardiovascular Rhythm: regular Heart Sounds: Present: S1 & S2. Absent: gallop - Extremities Extremities: no ischemia, pulses intact, pulses symmetrical, No edema Peripheral Pulses: within normal limits - Abdominal General gastrointestinal: soft, non-tender, non-distended - Integumentary Integumentary: Present: clear - Psychiatric Psychiatric: appropriate mood/affect, intact judgment & insight - Neurologic Neurologic: CNII-XII intact, moves all extremities Results - Labs CBC & Chem 7: 08/13/16 07:08 08/10/16 04:39 Labs: Laboratory Last Values WBC 20.3 K/mm3 (4.5-11.0) H 08/13/16 07:08 RBC 4.17 M/mm3 (3.65-5.03) 08/13/16 07:08 Hgb 12.9 gm/dl (10.1-14.3) 08/13/16 07:08 Hct 39.8 % (30.3-42.9) 08/13/16 07:08 MCV 96 fl (79-97) 08/13/16 07:08 MCH 31 pg (28-32) 08/13/16 07:08 MCHC 32 % (30-34) 08/13/16 07:08 RDW 14.3 % (13.2-15.2) 08/13/16 07:08 Plt Count 331 K/mm3 (140-440) 08/13/16 07:08 Lymph % (Auto) 8.9 % (13.4-35.0) L 08/12/16 05:15 [place] % (Auto) 6.3 % (0.0-7.3) 08/12/16 05:15 Eos % (Auto) 0.0 % (0.0-4.3) 08/12/16 05:15 Baso % (Auto) 0.1 % (0.0-1.8) 08/12/16 05:15 Lymph # 1.5 K/mm3 (1.2-5.4) 08/12/16 05:15 [place] # 1.0 K/mm3 (0.0-0.8) H 08/12/16 05:15 Eos # 0.0 K/mm3 (0.0-0.4) 08/12/16 05:15 Baso # 0.0 K/mm3 (0.0-0.1) 08/12/16 05:15 Add Manual Diff Complete 08/13/16 07:08 Total Counted 100 08/13/16 07:08 Seg Neutrophils % 84.7 % (40.0-70.0) H 08/12/16 05:15 Seg Neuts % (Manual) 82.0 % (40.0-70.0) H 08/13/16 07:08 Band Neutrophils % 0 % 08/13/16 07:08 Lymphocytes % (Manual) 15.0 % (13.4-35.0) 08/13/16 07:08 Reactive Lymphs % (Man) 0 % 08/13/16 07:08 Monocytes % (Manual) 2.0 % (0.0-7.3) 08/13/16 07:08 Eosinophils % (Manual) 0 % (0.0-4.3) 08/13/16 07:08 Basophils % (Manual) 0 % (0.0-1.8) 08/13/16 07:08 Metamyelocytes % 0 % 08/13/16 07:08 Myelocytes % 1.0 % 08/13/16 07:08 Promyelocytes % 0 % 08/13/16 07:08 Blast Cells % 0 % 08/13/16 07:08 Nucleated RBC % Not Reportable 08/13/16 07:08 Seg Neutrophils # 14.1 K/mm3 (1.8-7.7) H 08/12/16 05:15 Seg Neutrophils # Man 16.6 K/mm3 (1.8-7.7) H 08/13/16 07:08 Band Neutrophils # 0.0 K/mm3 08/13/16 07:08 Lymphocytes # (Manual) 3.0 K/mm3 (1.2-5.4) 08/13/16 07:08 Abs React Lymphs (Man) 0.0 K/mm3 08/13/16 07:08 Monocytes # (Manual) 0.4 K/mm3 (0.0-0.8) 08/13/16 07:08 Eosinophils # (Manual) 0.0 K/mm3 (0.0-0.4) 08/13/16 07:08 Basophils # (Manual) 0.0 K/mm3 (0.0-0.1) 08/13/16 07:08 Metamyelocytes # 0.0 K/mm3 08/13/16 07:08 Myelocytes # 0.2 K/mm3 08/13/16 07:08 Promyelocytes # 0.0 K/mm3 08/13/16 07:08 Blast Cells # 0.0 K/mm3 08/13/16 07:08 WBC Morphology Not Reportable 08/13/16 07:08 Hypersegmented Neuts Not Reportable 08/13/16 07:08 Hyposegmented Neuts Not Reportable 08/13/16 07:08 Hypogranular Neuts Not Reportable 08/13/16 07:08 Smudge Cells Not Reportable 08/13/16 07:08 Toxic Granulation Not Reportable 08/13/16 07:08 Toxic Vacuolation Not Reportable 08/13/16 07:08 Dohle Bodies Not Reportable 08/13/16 07:08 Pelger-Huet Anomaly Not Reportable 08/13/16 07:08 Sebastián Rods Not Reportable 08/13/16 07:08 Platelet Estimate Consistent w auto 08/13/16 07:08 Clumped Platelets Not Reportable 08/13/16 07:08 Plt Clumps, EDTA Not Reportable 08/13/16 07:08 Large Platelets Not Reportable 08/13/16 07:08 Giant Platelets Not Reportable 08/13/16 07:08 Platelet Satelliting Not Reportable 08/13/16 07:08 Plt Morphology Comment Not Reportable 08/13/16 07:08 RBC Morphology Not Reportable 08/13/16 07:08 Dimorphic RBCs Not Reportable 08/13/16 07:08 Polychromasia Not Reportable 08/13/16 07:08 Hypochromasia Not Reportable 08/13/16 07:08 Poikilocytosis Not Reportable 08/13/16 07:08 Anisocytosis Not Reportable 08/13/16 07:08 Microcytosis Not Reportable 08/13/16 07:08 Macrocytosis Not Reportable 08/13/16 07:08 Spherocytes Not Reportable 08/13/16 07:08 Pappenheimer Bodies Not Reportable 08/13/16 07:08 Sickle Cells Not Reportable 08/13/16 07:08 Target Cells Not Reportable 08/13/16 07:08 Tear Drop Cells Not Reportable 08/13/16 07:08 Ovalocytes Not Reportable 08/13/16 07:08 Helmet Cells Not Reportable 08/13/16 07:08 Razo-Combine Bodies Not Reportable 08/13/16 07:08 [place] Rings Not Reportable 08/13/16 07:08 [place] Cells Not Reportable 08/13/16 07:08 Bite Cells Not Reportable 08/13/16 07:08 Crenated Cell Not Reportable 08/13/16 07:08 Elliptocytes Not Reportable 08/13/16 07:08 Acanthocytes (Spur) Not Reportable 08/13/16 07:08 Rouleaux Not Reportable 08/13/16 07:08 Hemoglobin C Crystals Not Reportable 08/13/16 07:08 Schistocytes Not Reportable 08/13/16 07:08 Malaria parasites Not Reportable 08/13/16 07:08 [place] Bodies Not Reportable 08/13/16 07:08 Hem Pathologist Commnt No 08/13/16 07:08 PT 13.6 Sec. (12.2-14.9) 08/08/16 12:04 INR 1.05 (0.87-1.13) 08/08/16 12:04 APTT 28.6 Sec. (24.2-36.6) 08/08/16 14:04 POC ABG pH 7.402 (7.35-7.45) 08/13/16 08:36 POC ABG pCO2 41.8 (35-45) 08/13/16 08:36 POC ABG pO2 46 (80-105) L 08/13/16 08:36 POC ABG HCO3 26.0 08/13/16 08:36 POC ABG Total CO2 27 08/13/16 08:36 POC ABG O2 Sat 82 08/13/16 08:36 POC ABG Base Excess 1 08/13/16 08:36 VBG pH 7.317 (7.320-7.420) L 08/08/16 12:04 FiO2 21 % 08/13/16 08:36 Sodium 140 mmol/L (137-145) 08/10/16 04:39 Potassium 3.5 mmol/L (3.6-5.0) L 08/10/16 04:39 Chloride 103.9 mmol/L (98-107) 08/10/16 04:39 Carbon Dioxide 23 mmol/L (22-30) 08/10/16 04:39 Anion Gap 17 mmol/L 08/10/16 04:39 BUN 10 mg/dL (7-17) 08/10/16 04:39 Creatinine 1.5 mg/dL (0.7-1.2) H D 08/10/16 04:39 Estimated GFR 43 ml/min 08/10/16 04:39 BUN/Creatinine Ratio 6.66 % 08/10/16 04:39 Glucose 164 mg/dL (65-100) H 08/10/16 04:39 POC Glucose 144 (70-105) H 08/13/16 06:26 Hemoglobin A1c 7.0 % (4-6) H 08/08/16 12:04 Lactic Acid 0.9 mmol/L (0.7-2.0) 08/09/16 14:54 Calcium 8.1 mg/dL (8.4-10.2) L 08/10/16 04:39 Total Bilirubin 0.6 mg/dL (0.1-1.2) 08/09/16 05:04 AST 48 units/L (5-40) H 08/09/16 05:04 ALT 26 units/L (7-56) 08/09/16 05:04 Alkaline Phosphatase 62 units/L (35-129) 08/09/16 05:04 Total Creatine Kinase 976 units/L (30-135) H 08/08/16 12:04 CK-MB (CK-2) 4.1 ng/mL (0.0-4.0) H 08/08/16 12:04 CK-MB (CK-2) Rel Index 0.4 (0-4) 08/08/16 12:04 Troponin T < 0.010 ng/mL (0.00-0.029) 08/08/16 12:04 NT-Pro-B Natriuret Pep 25.33 pg/mL (0-900) 08/10/16 11:06 Total Protein 6.2 g/dL (6.3-8.2) L D 08/09/16 05:04 Albumin 3.6 g/dL (3.9-5) L 08/09/16 05:04 Albumin/Globulin Ratio 1.4 % 08/09/16 05:04 TSH 1.000 mlU/mL (0.270-4.200) 08/10/16 11:06 Urine Color Yellow (Yellow) 08/08/16 11:54 Urine Turbidity Clear (Clear) 08/08/16 11:54 Urine pH 5.0 (5.0-7.0) 08/08/16 11:54 Ur Specific [place] 1.025 (1.003-1.030) 08/08/16 11:54 Urine Protein 100 mg/dl mg/dL (Negative) 08/08/16 11:54 Urine Glucose (UA) Neg mg/dL (Negative) 08/08/16 11:54 Urine Ketones 20 mg/dL (Negative) 08/08/16 11:54 Urine Blood Sm (Negative) 08/08/16 11:54 Urine Nitrite Neg (Negative) 08/08/16 11:54 Urine Bilirubin Neg (Negative) 08/08/16 11:54 Urine Urobilinogen < 2.0 mg/dL (<2.0) 08/08/16 11:54 Ur Leukocyte Esterase Neg (Negative) 08/08/16 11:54 Urine WBC (Auto) 8.0 /HPF (0.0-6.0) H 08/08/16 11:54 Urine RBC (Auto) 3.0 /HPF (0.0-6.0) 08/08/16 11:54 U Epithel Cells (Auto) 1.0 /HPF (0-13.0) 08/08/16 11:54 Urine Mucus 3+ /HPF 08/08/16 11:54 Microbiology 08/08/16 12:04 Peripheral/Venous Blood Culture - Preliminary NO GROWTH AFTER 4 DAYS 08/08/16 12:04 Peripheral/Venous Blood Culture - Preliminary NO GROWTH AFTER 4 DAYS 08/08/16 14:34 Urine,Clean Catch Urine Culture - Final - Imaging and Cardiology Chest x-ray: report reviewed (bilateral pneumonia)
[2016-08-13] MEDS ORDERED: VANCOMYCIN PHARMACY TO DOSE IV SCH (13:00)
[2016-08-13] MEDS ORDERED: VANCOMYCIN/NS 1 GM/250 ML 1 GM/250 ML BAG IV SCH (14:00)
[2016-08-13] MEDS: PERCOCET 5/325 PO PRN (14:57)
--- NOTE | 2016-08-13 16:01 | Progress Note ---
Assessment and Plan - Patient Problems (1) Acute hypoxemic respiratory failure Current Visit: Yes Status: Acute Plan to address problem: (CT chest and CXR include atypical pneumonia and ILDx in the differential) - begin levaquin and de-escalate AB's otherwise - get 2D ECHO to evaluate diastolic function and right sided pressures - get MAGED level as conn tissue disease screen - wean oxygen to keep sats > 94% - systemic steroids to continue (2) Elevated lactic acid level Current Visit: Yes Status: Acute Plan to address problem: - resolved Subjective Date of service: 08/13/16 Principal diagnosis: Acute Hypoxemic Resp Failure Interval history: seen and examined at bedside; 24hour events reviewed; nursing and respiratory care staff consulted; no adverse overnight events reported to me; remains on supplemental oxygen; feels perhaps a little better Objective Vital Signs - 12hr 08/13/16 08/13/16 08/13/16 08:11 08:26 08:40 Temperature 98.0 F Pulse Rate Pulse Rate [ 92 H 94 H Anterior Bilateral Throughout] Pulse Rate [ 104 H Left Radial] Respiratory 24 Rate Respiratory 16 16 Rate [Anterior Bilateral Throughout] Blood Pressure Blood Pressure 171/92 [Left Arm] O2 Sat by Pulse 95 Oximetry 08/13/16 08/13/16 08/13/16 10:26 10:27 13:12 Temperature Pulse Rate 104 H Pulse Rate [ 92 H Anterior Bilateral Throughout] Pulse Rate [ Left Radial] Respiratory Rate Respiratory 16 Rate [Anterior Bilateral Throughout] Blood Pressure 170/80 170/80 Blood Pressure [Left Arm] O2 Sat by Pulse Oximetry 08/13/16 08/13/16 13:34 15:42 Temperature 98.9 F Pulse Rate Pulse Rate [ 96 H Anterior Bilateral Throughout] Pulse Rate [ 86 Left Radial] Respiratory 22 Rate Respiratory 16 Rate [Anterior Bilateral Throughout] Blood Pressure Blood Pressure 147/76 [Left Arm] O2 Sat by Pulse Oximetry Constitutional: alert, appears uncomfortable Eyes: non-icteric ENT: oropharynx moist Neck: supple, no JVD Effort: mildly labored Ascultation: Bilateral: wheezes (slight), rales (basilar predominant) Cardiovascular: regular rate and rhythm Gastrointestinal: normoactive bowel sounds, soft, non-tender, non-distended Integumentary: normal Extremities: no cyanosis, no edema, pulses normal, no ischemia or petechiae Neurologic: normal mental status, non-focal exam, pupils equal and round, CN II- XII normal Psychiatric: mood appropriate, affect normal CBC and BMP: 08/13/16 07:08 08/10/16 04:39 ABG, PT/INR, D-dimer: ABG POC ABG pH 7.402 (7.35-7.45) 08/13/16 08:36 POC ABG pCO2 41.8 (35-45) 08/13/16 08:36 POC ABG pO2 46 (80-105) L 08/13/16 08:36 POC ABG HCO3 26.0 08/13/16 08:36 POC ABG Total CO2 27 08/13/16 08:36 POC ABG O2 Sat 82 08/13/16 08:36 PT/INR, D-dimer PT 13.6 Sec. (12.2-14.9) 08/08/16 12:04 INR 1.05 (0.87-1.13) 08/08/16 12:04 Abnormal lab findings: Abnormal Labs 08/08/16 08/09/16 08/09/16 22:56 05:04 05:04 WBC Hgb 14.4 H Hct 43.1 H D Lymph % (Auto) Brooks % (Auto) 12.9 H Brooks # 1.3 H Seg Neutrophils % Seg Neuts % (Manual) Seg Neutrophils # Seg Neutrophils # Man POC ABG pCO2 POC ABG pO2 Potassium Carbon Dioxide 21 L Creatinine Glucose 146 H POC Glucose 108 H Calcium AST 48 H Total Protein 6.2 L D Albumin 3.6 L 08/09/16 08/09/16 08/09/16 07:40 11:29 16:52 WBC Hgb Hct Lymph % (Auto) Brooks % (Auto) Brooks # Seg Neutrophils % Seg Neuts % (Manual) Seg Neutrophils # Seg Neutrophils # Man POC ABG pCO2 POC ABG pO2 Potassium Carbon Dioxide Creatinine Glucose POC Glucose 168 H 138 H 140 H Calcium AST Total Protein Albumin 08/09/16 08/09/16 08/10/16 17:51 22:07 04:39 WBC 11.5 H Hgb Hct Lymph % (Auto) Brooks % (Auto) 8.1 H Brooks # 0.9 H Seg Neutrophils % 75.6 H Seg Neuts % (Manual) Seg Neutrophils # 8.7 H Seg Neutrophils # Man POC ABG pCO2 32.6 L POC ABG pO2 56 L Potassium Carbon Dioxide Creatinine Glucose POC Glucose 166 H Calcium AST Total Protein Albumin 08/10/16 08/10/16 08/10/16 04:39 08:20 12:23 WBC Hgb Hct Lymph % (Auto) Brooks % (Auto) Brooks # Seg Neutrophils % Seg Neuts % (Manual) Seg Neutrophils # Seg Neutrophils # Man POC ABG pCO2 POC ABG pO2 Potassium 3.5 L Carbon Dioxide Creatinine 1.5 H D Glucose 164 H POC Glucose 112 H 124 H Calcium 8.1 L AST Total Protein Albumin 08/10/16 08/10/16 08/10/16 16:23 20:49 23:25 WBC Hgb Hct Lymph % (Auto) Brooks % (Auto) Brooks # Seg Neutrophils % Seg Neuts % (Manual) Seg Neutrophils # Seg Neutrophils # Man POC ABG pCO2 POC ABG pO2 Potassium Carbon Dioxide Creatinine Glucose POC Glucose 130 H 123 H 130 H Calcium AST Total Protein Albumin 08/11/16 08/11/16 08/11/16 06:27 06:45 12:35 WBC 12.2 H Hgb Hct Lymph % (Auto) Brooks % (Auto) 9.2 H Brooks # 1.1 H Seg Neutrophils % 75.7 H Seg Neuts % (Manual) Seg Neutrophils # 9.2 H Seg Neutrophils # Man POC ABG pCO2 POC ABG pO2 Potassium Carbon Dioxide Creatinine Glucose POC Glucose 132 H 170 H Calcium AST Total Protein Albumin 08/11/16 08/11/16 08/12/16 16:14 21:55 05:15 WBC 16.7 H Hgb Hct Lymph % (Auto) 8.9 L Brooks % (Auto) Brooks # 1.0 H Seg Neutrophils % 84.7 H Seg Neuts % (Manual) Seg Neutrophils # 14.1 H Seg Neutrophils # Man POC ABG pCO2 POC ABG pO2 Potassium Carbon Dioxide Creatinine Glucose POC Glucose 248 H 196 H Calcium AST Total Protein Albumin 08/12/16 08/12/16 08/12/16 06:32 12:26 16:32 WBC Hgb Hct Lymph % (Auto) Brooks % (Auto) Brooks # Seg Neutrophils % Seg Neuts % (Manual) Seg Neutrophils # Seg Neutrophils # Man POC ABG pCO2 POC ABG pO2 Potassium Carbon Dioxide Creatinine Glucose POC Glucose 177 H 255 H 164 H Calcium AST Total Protein Albumin 08/12/16 08/13/16 08/13/16 21:44 06:26 07:08 WBC 20.3 H Hgb Hct Lymph % (Auto) Brooks % (Auto) Brooks # Seg Neutrophils % Seg Neuts % (Manual) 82.0 H Seg Neutrophils # Seg Neutrophils # Man 16.6 H POC ABG pCO2 POC ABG pO2 Potassium Carbon Dioxide Creatinine Glucose POC Glucose 234 H 144 H Calcium AST Total Protein Albumin 08/13/16 08/13/16 08:36 12:08 WBC Hgb Hct Lymph % (Auto) Brooks % (Auto) Brooks # Seg Neutrophils % Seg Neuts % (Manual) Seg Neutrophils # Seg Neutrophils # Man POC ABG pCO2 POC ABG pO2 46 L Potassium Carbon Dioxide Creatinine Glucose POC Glucose 216 H Calcium AST Total Protein Albumin Chest x-ray: image reviewed CT scan - chest: image reviewed
[2016-08-13] MEDS: NOVOLOG SUB-Q SCH ×2 (17:16→22:56)
[2016-08-13] MEDS: LEVAQUIN 750MG/150ML 750 MG/150 ML BAG IV SCH (20:47)
[2016-08-14] MEDS: AMBIEN PO PRN ×2 (00:15→23:38)
[2016-08-14] MEDS: PROVENTIL IH SCH ×4 (01:49→19:27)
[2016-08-14 06:07] LABS: Hematocrit 37.3 % (30.3-42.9); Hemoglobin 12.5 gm/dl (10.1-14.3); Mean Corpuscular HGB Conc 34 % (30-34); Mean Corpuscular Hemoglobin 32 pg (28-32); Mean Corpuscular Volume 94 fl (79-97); Platelet Count 322 K/mm3 (140-440); Red Blood Count 3.96 M/mm3 (3.65-5.03); Red Cell Distribution Width 14.4 % (13.2-15.2); White Blood Count 14.6 K/mm3 (4.5-11.0)
[2016-08-14 06:32] LABS: BUN/Creatinine Ratio 25.71; Blood Urea Nitrogen 18 mg/dL (7-17); Calcium 9.1 mg/dL (8.4-10.2); Carbon Dioxide 30 mmol/L (22-30); Chloride 103.4 mmol/L (98-107); Glucose 138 mg/dL (65-100); Potassium 3.4 mmol/L (3.6-5.0); Sodium 145 mmol/L (137-145)
[2016-08-14 06:34] LABS: Anion Gap 15 mmol/L
[2016-08-14] MEDS ORDERED: K-DUR PO ONE (07:32)
[2016-08-14] MEDS: PULMICORT IH SCH ×2 (07:43→19:27)
[2016-08-14] MEDS: BROVANA NEBU IH SCH ×2 (07:44→19:27)
[2016-08-14 07:45] LABS: Basophils % (Manual) 0 % (0.0-1.8); Blastocytes % (Manual) 0 %; Eosinophils % (Manual) 0 % (0.0-4.3)
[2016-08-14 07:46] LABS: Diff Status Complete; Large Platelets Few; RBC Morphology Normal
--- NOTE | 2016-08-14 08:56 | Event Note ---
Date: 08/14/16 Echo done 07/23/16 showed EF 55-60%, normal diastolic function, normal RV size and function, no significant valvular abnormalities.
[2016-08-14] MEDS: COZAAR PO SCH (09:27)
[2016-08-14] MEDS: TRADJENTA PO SCH (09:29)
[2016-08-14] MEDS: ZOCOR PO SCH (09:29)
[2016-08-14] MEDS: NORVASC PO SCH (09:29)
[2016-08-14] MEDS: LOVENOX SUB-Q SCH (09:31)
[2016-08-14] MEDS: SYNTHROID PO SCH (09:31)
[2016-08-14] MEDS: MUCINEX ER PO SCH ×2 (09:35→21:16)
[2016-08-14] MEDS: NOVOLOG SUB-Q SCH ×4 (09:38→23:38)
[2016-08-14] MEDS: COREG PO SCH ×2 (10:21→21:16)
--- NOTE | 2016-08-14 12:53 | Progress Note ---
Assessment and Plan Assessment and plan: 1. Sepsis present on admission due to urinary tract infection and pneumonia with acute hypoxic respiratory failure -wbc trending down; started on levaquin to cover atpyical pneumonia by pulmonary and streroids were tapered; vancomycin stopped; continue current IV Zosyn; cultures negative to date. Wean supplemental oxygen as tolerated and nebulization treatments. Afebrile; f/u pulmonary for further recommendations 2. Hypothyroidism-cotn medications 3. DM 2- cont meds; monitor accuchecks 4. Benign HTN - monitor BP; 5. Possible COPD- cont current breathing tx; wean IV solumedrol; cont brovana / albuterol / atrovent 6. DVT prophylaxis- lovenox History Interval history: f/u pneumonia, UTI Patient is seen on the bedside;sob is better today but still coughing alot Hospitalist Physical - Constitutional Vitals: Temp Pulse Resp BP Pulse Ox 97.8 F 92 H 24 155/78 97 08/14/16 09:18 08/14/16 10:21 08/14/16 09:18 08/14/16 10:21 08/14/16 09:42 General appearance: Present: no acute distress (40% Venturi mask), well- nourished - EENT Eyes: Present: PERRL, EOM intact. Absent: scleral icterus, conjunctival injection ENT: hearing intact, clear oral mucosa - Neck Neck: Present: supple. Absent: enlarged thyroid, masses or JVD - Respiratory Respiratory effort: normal (on oxygen) Respiratory: bilateral: diminished, wheezing, negative: rales, rhonchi - Cardiovascular Rhythm: regular Heart Sounds: Present: S1 & S2. Absent: gallop - Extremities Extremities: no ischemia, pulses intact, pulses symmetrical, No edema Peripheral Pulses: within normal limits - Abdominal General gastrointestinal: soft, non-tender, non-distended - Integumentary Integumentary: Present: clear - Psychiatric Psychiatric: appropriate mood/affect, intact judgment & insight, cooperative - Neurologic Neurologic: CNII-XII intact, moves all extremities Results - Labs CBC & Chem 7: 08/14/16 05:49 08/14/16 05:49 Labs: Laboratory Last Values WBC 14.6 K/mm3 (4.5-11.0) H 08/14/16 05:49 RBC 3.96 M/mm3 (3.65-5.03) 08/14/16 05:49 Hgb 12.5 gm/dl (10.1-14.3) 08/14/16 05:49 Hct 37.3 % (30.3-42.9) 08/14/16 05:49 MCV 94 fl (79-97) 08/14/16 05:49 MCH 32 pg (28-32) 08/14/16 05:49 MCHC 34 % (30-34) 08/14/16 05:49 RDW 14.4 % (13.2-15.2) 08/14/16 05:49 Plt Count 322 K/mm3 (140-440) 08/14/16 05:49 Lymph % (Auto) 8.9 % (13.4-35.0) L 08/12/16 05:15 Hughes % (Auto) 6.3 % (0.0-7.3) 08/12/16 05:15 Eos % (Auto) 0.0 % (0.0-4.3) 08/12/16 05:15 Baso % (Auto) 0.1 % (0.0-1.8) 08/12/16 05:15 Lymph # 1.5 K/mm3 (1.2-5.4) 08/12/16 05:15 Hughes # 1.0 K/mm3 (0.0-0.8) H 08/12/16 05:15 Eos # 0.0 K/mm3 (0.0-0.4) 08/12/16 05:15 Baso # 0.0 K/mm3 (0.0-0.1) 08/12/16 05:15 Add Manual Diff Complete 08/14/16 05:49 Total Counted 100 08/14/16 05:49 Seg Neutrophils % 84.7 % (40.0-70.0) H 08/12/16 05:15 Seg Neuts % (Manual) 82.0 % (40.0-70.0) H 08/14/16 05:49 Band Neutrophils % 6.0 % 08/14/16 05:49 Lymphocytes % (Manual) 7.0 % (13.4-35.0) L 08/14/16 05:49 Reactive Lymphs % (Man) 0 % 08/14/16 05:49 Monocytes % (Manual) 4.0 % (0.0-7.3) 08/14/16 05:49 Eosinophils % (Manual) 0 % (0.0-4.3) 08/14/16 05:49 Basophils % (Manual) 0 % (0.0-1.8) 08/14/16 05:49 Metamyelocytes % 1.0 % 08/14/16 05:49 Myelocytes % 0 % 08/14/16 05:49 Promyelocytes % 0 % 08/14/16 05:49 Blast Cells % 0 % 08/14/16 05:49 Nucleated RBC % Not Reportable 08/14/16 05:49 Seg Neutrophils # 14.1 K/mm3 (1.8-7.7) H 08/12/16 05:15 Seg Neutrophils # Man 12.0 K/mm3 (1.8-7.7) H 08/14/16 05:49 Band Neutrophils # 0.9 K/mm3 08/14/16 05:49 Lymphocytes # (Manual) 1.0 K/mm3 (1.2-5.4) L 08/14/16 05:49 Abs React Lymphs (Man) 0.0 K/mm3 08/14/16 05:49 Monocytes # (Manual) 0.6 K/mm3 (0.0-0.8) 08/14/16 05:49 Eosinophils # (Manual) 0.0 K/mm3 (0.0-0.4) 08/14/16 05:49 Basophils # (Manual) 0.0 K/mm3 (0.0-0.1) 08/14/16 05:49 Metamyelocytes # 0.1 K/mm3 08/14/16 05:49 Myelocytes # 0.0 K/mm3 08/14/16 05:49 Promyelocytes # 0.0 K/mm3 08/14/16 05:49 Blast Cells # 0.0 K/mm3 08/14/16 05:49 WBC Morphology Not Reportable 08/14/16 05:49 Hypersegmented Neuts Not Reportable 08/14/16 05:49 Hyposegmented Neuts Not Reportable 08/14/16 05:49 Hypogranular Neuts Not Reportable 08/14/16 05:49 Smudge Cells Not Reportable 08/14/16 05:49 Toxic Granulation Not Reportable 08/14/16 05:49 Toxic Vacuolation Not Reportable 08/14/16 05:49 Dohle Bodies Not Reportable 08/14/16 05:49 Pelger-Huet Anomaly Not Reportable 08/14/16 05:49 Sebastián Rods Not Reportable 08/14/16 05:49 Platelet Estimate Appears normal 08/14/16 05:49 Clumped Platelets Not Reportable 08/14/16 05:49 Plt Clumps, EDTA Not Reportable 08/14/16 05:49 Large Platelets Few 08/14/16 05:49 Giant Platelets Not Reportable 08/14/16 05:49 Platelet Satelliting Not Reportable 08/14/16 05:49 Plt Morphology Comment Not Reportable 08/14/16 05:49 RBC Morphology Normal 08/14/16 05:49 Dimorphic RBCs Not Reportable 08/14/16 05:49 Polychromasia Not Reportable 08/14/16 05:49 Hypochromasia Not Reportable 08/14/16 05:49 Poikilocytosis Not Reportable 08/14/16 05:49 Anisocytosis Not Reportable 08/14/16 05:49 Microcytosis Not Reportable 08/14/16 05:49 Macrocytosis Not Reportable 08/14/16 05:49 Spherocytes Not Reportable 08/14/16 05:49 Pappenheimer Bodies Not Reportable 08/14/16 05:49 Sickle Cells Not Reportable 08/14/16 05:49 Target Cells Not Reportable 08/14/16 05:49 Tear Drop Cells Not Reportable 08/14/16 05:49 Ovalocytes Not Reportable 08/14/16 05:49 Helmet Cells Not Reportable 08/14/16 05:49 [place] Bodies Not Reportable 08/14/16 05:49 Cowley Rings Not Reportable 08/14/16 05:49 Skyla Cells Not Reportable 08/14/16 05:49 Bite Cells Not Reportable 08/14/16 05:49 Crenated Cell Not Reportable 08/14/16 05:49 Elliptocytes Not Reportable 08/14/16 05:49 Acanthocytes (Spur) Not Reportable 08/14/16 05:49 Rouleaux Not Reportable 08/14/16 05:49 Hemoglobin C Crystals Not Reportable 08/14/16 05:49 Schistocytes Not Reportable 08/14/16 05:49 Malaria parasites Not Reportable 08/14/16 05:49 Alton Bodies Not Reportable 08/14/16 05:49 Hem Pathologist Commnt No 08/14/16 05:49 PT 13.6 Sec. (12.2-14.9) 08/08/16 12:04 INR 1.05 (0.87-1.13) 08/08/16 12:04 APTT 28.6 Sec. (24.2-36.6) 08/08/16 14:04 POC ABG pH 7.402 (7.35-7.45) 08/13/16 08:36 POC ABG pCO2 41.8 (35-45) 08/13/16 08:36 POC ABG pO2 46 (80-105) L 08/13/16 08:36 POC ABG HCO3 26.0 08/13/16 08:36 POC ABG Total CO2 27 08/13/16 08:36 POC ABG O2 Sat 82 08/13/16 08:36 POC ABG Base Excess 1 08/13/16 08:36 VBG pH 7.317 (7.320-7.420) L 08/08/16 12:04 FiO2 21 % 08/13/16 08:36 Sodium 145 mmol/L (137-145) 08/14/16 05:49 Potassium 3.4 mmol/L (3.6-5.0) L 08/14/16 05:49 Chloride 103.4 mmol/L (98-107) 08/14/16 05:49 Carbon Dioxide 30 mmol/L (22-30) D 08/14/16 05:49 Anion Gap 15 mmol/L 08/14/16 05:49 BUN 18 mg/dL (7-17) H 08/14/16 05:49 Creatinine 0.7 mg/dL (0.7-1.2) D 08/14/16 05:49 Estimated GFR > 60 ml/min 08/14/16 05:49 BUN/Creatinine Ratio 25.71 % 08/14/16 05:49 Glucose 138 mg/dL (65-100) H 08/14/16 05:49 POC Glucose 187 (70-105) H 08/14/16 11:51 Hemoglobin A1c 7.0 % (4-6) H 08/08/16 12:04 Lactic Acid 0.9 mmol/L (0.7-2.0) 08/09/16 14:54 Calcium 9.1 mg/dL (8.4-10.2) 08/14/16 05:49 Total Bilirubin 0.6 mg/dL (0.1-1.2) 08/09/16 05:04 AST 48 units/L (5-40) H 08/09/16 05:04 ALT 26 units/L (7-56) 08/09/16 05:04 Alkaline Phosphatase 62 units/L (35-129) 08/09/16 05:04 Total Creatine Kinase 976 units/L (30-135) H 08/08/16 12:04 CK-MB (CK-2) 4.1 ng/mL (0.0-4.0) H 08/08/16 12:04 CK-MB (CK-2) Rel Index 0.4 (0-4) 08/08/16 12:04 Troponin T < 0.010 ng/mL (0.00-0.029) 08/08/16 12:04 C-Reactive Protein 9.70 mg/dL (0.00-1.30) H 08/13/16 21:32 NT-Pro-B Natriuret Pep 25.33 pg/mL (0-900) 08/10/16 11:06 Total Protein 6.2 g/dL (6.3-8.2) L D 08/09/16 05:04 Albumin 3.6 g/dL (3.9-5) L 08/09/16 05:04 Albumin/Globulin Ratio 1.4 % 08/09/16 05:04 TSH 1.000 mlU/mL (0.270-4.200) 08/10/16 11:06 Urine Color Yellow (Yellow) 08/08/16 11:54 Urine Turbidity Clear (Clear) 08/08/16 11:54 Urine pH 5.0 (5.0-7.0) 08/08/16 11:54 Ur Specific [place] 1.025 (1.003-1.030) 08/08/16 11:54 Urine Protein 100 mg/dl mg/dL (Negative) 08/08/16 11:54 Urine Glucose (UA) Neg mg/dL (Negative) 08/08/16 11:54 Urine Ketones 20 mg/dL (Negative) 08/08/16 11:54 Urine Blood Sm (Negative) 08/08/16 11:54 Urine Nitrite Neg (Negative) 08/08/16 11:54 Urine Bilirubin Neg (Negative) 08/08/16 11:54 Urine Urobilinogen < 2.0 mg/dL (<2.0) 08/08/16 11:54 Ur Leukocyte Esterase Neg (Negative) 08/08/16 11:54 Urine WBC (Auto) 8.0 /HPF (0.0-6.0) H 08/08/16 11:54 Urine RBC (Auto) 3.0 /HPF (0.0-6.0) 08/08/16 11:54 U Epithel Cells (Auto) 1.0 /HPF (0-13.0) 08/08/16 11:54 Urine Mucus 3+ /HPF 08/08/16 11:54 Microbiology 08/08/16 12:04 Peripheral/Venous Blood Culture - Final NO GROWTH AFTER 5 DAYS 08/08/16 12:04 Peripheral/Venous Blood Culture - Final NO GROWTH AFTER 5 DAYS 08/08/16 14:34 Urine,Clean Catch Urine Culture - Final
--- NOTE | 2016-08-14 15:36 | Progress Note ---
Assessment and Plan - Patient Problems (1) Acute hypoxemic respiratory failure Current Visit: Yes Status: Acute (2) Elevated lactic acid level Current Visit: Yes Status: Acute Subjective Date of service: 08/14/16 Principal diagnosis: Acute Hypoxemic Resp Failure Interval history: seen and examined at bedside; 24hour events reviewed; nursing and respiratory care staff consulted; no adverse overnight events reported to me; Objective Vital Signs - 12hr 08/14/16 08/14/16 08/14/16 07:41 08:06 08:35 Temperature 98.2 F Pulse Rate Pulse Rate [ 88 87 Anterior Bilateral Throughout] Pulse Rate [ 89 Left Radial] Respiratory 22 Rate Respiratory 24 20 Rate [Anterior Bilateral Throughout] Blood Pressure Blood Pressure 173/81 [Left Arm] O2 Sat by Pulse 99 98 Oximetry 08/14/16 08/14/16 08/14/16 09:18 09:27 09:29 Temperature 97.8 F Pulse Rate 92 H 92 H Pulse Rate [ Anterior Bilateral Throughout] Pulse Rate [ 92 H Left Radial] Respiratory 24 Rate Respiratory Rate [Anterior Bilateral Throughout] Blood Pressure 155/78 155/78 Blood Pressure 155/72 [Left Arm] O2 Sat by Pulse 97 Oximetry 08/14/16 08/14/16 08/14/16 09:42 10:21 15:31 Temperature 98.1 F Pulse Rate 92 H Pulse Rate [ Anterior Bilateral Throughout] Pulse Rate [ 100 H Left Radial] Respiratory 22 Rate Respiratory Rate [Anterior Bilateral Throughout] Blood Pressure 155/78 Blood Pressure 133/73 [Left Arm] O2 Sat by Pulse 97 Oximetry Constitutional: alert, appears uncomfortable Eyes: non-icteric ENT: oropharynx moist Neck: supple, no JVD Effort: mildly labored Ascultation: Bilateral: wheezes (slight), rales (basilar predominant), rhonchi ( Diffuse bilateral ronchi.) Cardiovascular: regular rate and rhythm Gastrointestinal: normoactive bowel sounds, soft, non-tender, non-distended Integumentary: normal Extremities: no cyanosis, no edema, pulses normal, no ischemia or petechiae Neurologic: normal mental status, non-focal exam, pupils equal and round, CN II- XII normal Psychiatric: mood appropriate, affect normal CBC and BMP: 08/14/16 05:49 08/14/16 05:49 ABG, PT/INR, D-dimer: ABG POC ABG pH 7.402 (7.35-7.45) 08/13/16 08:36 POC ABG pCO2 41.8 (35-45) 08/13/16 08:36 POC ABG pO2 46 (80-105) L 08/13/16 08:36 POC ABG HCO3 26.0 08/13/16 08:36 POC ABG Total CO2 27 08/13/16 08:36 POC ABG O2 Sat 82 08/13/16 08:36 PT/INR, D-dimer PT 13.6 Sec. (12.2-14.9) 08/08/16 12:04 INR 1.05 (0.87-1.13) 08/08/16 12:04 Abnormal lab findings: Abnormal Labs 08/08/16 08/09/16 08/09/16 22:56 05:04 05:04 WBC Hgb 14.4 H Hct 43.1 H D Lymph % (Auto) Dane % (Auto) 12.9 H Dane # 1.3 H Seg Neutrophils % Seg Neuts % (Manual) Lymphocytes % (Manual) Seg Neutrophils # Seg Neutrophils # Man Lymphocytes # (Manual) POC ABG pCO2 POC ABG pO2 Potassium Carbon Dioxide 21 L BUN Creatinine Glucose 146 H POC Glucose 108 H Calcium AST 48 H C-Reactive Protein Total Protein 6.2 L D Albumin 3.6 L 08/09/16 08/09/16 08/09/16 07:40 11:29 16:52 WBC Hgb Hct Lymph % (Auto) Dane % (Auto) Dane # Seg Neutrophils % Seg Neuts % (Manual) Lymphocytes % (Manual) Seg Neutrophils # Seg Neutrophils # Man Lymphocytes # (Manual) POC ABG pCO2 POC ABG pO2 Potassium Carbon Dioxide BUN Creatinine Glucose POC Glucose 168 H 138 H 140 H Calcium AST C-Reactive Protein Total Protein Albumin 08/09/16 08/09/16 08/10/16 17:51 22:07 04:39 WBC 11.5 H Hgb Hct Lymph % (Auto) Dane % (Auto) 8.1 H Dane # 0.9 H Seg Neutrophils % 75.6 H Seg Neuts % (Manual) Lymphocytes % (Manual) Seg Neutrophils # 8.7 H Seg Neutrophils # Man Lymphocytes # (Manual) POC ABG pCO2 32.6 L POC ABG pO2 56 L Potassium Carbon Dioxide BUN Creatinine Glucose POC Glucose 166 H Calcium AST C-Reactive Protein Total Protein Albumin 08/10/16 08/10/16 08/10/16 04:39 08:20 12:23 WBC Hgb Hct Lymph % (Auto) Dane % (Auto) Dane # Seg Neutrophils % Seg Neuts % (Manual) Lymphocytes % (Manual) Seg Neutrophils # Seg Neutrophils # Man Lymphocytes # (Manual) POC ABG pCO2 POC ABG pO2 Potassium 3.5 L Carbon Dioxide BUN Creatinine 1.5 H D Glucose 164 H POC Glucose 112 H 124 H Calcium 8.1 L AST C-Reactive Protein Total Protein Albumin 08/10/16 08/10/16 08/10/16 16:23 20:49 23:25 WBC Hgb Hct Lymph % (Auto) Dane % (Auto) Dane # Seg Neutrophils % Seg Neuts % (Manual) Lymphocytes % (Manual) Seg Neutrophils # Seg Neutrophils # Man Lymphocytes # (Manual) POC ABG pCO2 POC ABG pO2 Potassium Carbon Dioxide BUN Creatinine Glucose POC Glucose 130 H 123 H 130 H Calcium AST C-Reactive Protein Total Protein Albumin 08/11/16 08/11/16 08/11/16 06:27 06:45 12:35 WBC 12.2 H Hgb Hct Lymph % (Auto) Dane % (Auto) 9.2 H Dane # 1.1 H Seg Neutrophils % 75.7 H Seg Neuts % (Manual) Lymphocytes % (Manual) Seg Neutrophils # 9.2 H Seg Neutrophils # Man Lymphocytes # (Manual) POC ABG pCO2 POC ABG pO2 Potassium Carbon Dioxide BUN Creatinine Glucose POC Glucose 132 H 170 H Calcium AST C-Reactive Protein Total Protein Albumin 08/11/16 08/11/16 08/12/16 16:14 21:55 05:15 WBC 16.7 H Hgb Hct Lymph % (Auto) 8.9 L Dane % (Auto) Dane # 1.0 H Seg Neutrophils % 84.7 H Seg Neuts % (Manual) Lymphocytes % (Manual) Seg Neutrophils # 14.1 H Seg Neutrophils # Man Lymphocytes # (Manual) POC ABG pCO2 POC ABG pO2 Potassium Carbon Dioxide BUN Creatinine Glucose POC Glucose 248 H 196 H Calcium AST C-Reactive Protein Total Protein Albumin 08/12/16 08/12/16 08/12/16 06:32 12:26 16:32 WBC Hgb Hct Lymph % (Auto) Dane % (Auto) Dane # Seg Neutrophils % Seg Neuts % (Manual) Lymphocytes % (Manual) Seg Neutrophils # Seg Neutrophils # Man Lymphocytes # (Manual) POC ABG pCO2 POC ABG pO2 Potassium Carbon Dioxide BUN Creatinine Glucose POC Glucose 177 H 255 H 164 H Calcium AST C-Reactive Protein Total Protein Albumin 08/12/16 08/13/16 08/13/16 21:44 06:26 07:08 WBC 20.3 H Hgb Hct Lymph % (Auto) Dane % (Auto) Dane # Seg Neutrophils % Seg Neuts % (Manual) 82.0 H Lymphocytes % (Manual) Seg Neutrophils # Seg Neutrophils # Man 16.6 H Lymphocytes # (Manual) POC ABG pCO2 POC ABG pO2 Potassium Carbon Dioxide BUN Creatinine Glucose POC Glucose 234 H 144 H Calcium AST C-Reactive Protein Total Protein Albumin 08/13/16 08/13/16 08/13/16 08:36 12:08 16:46 WBC Hgb Hct Lymph % (Auto) Dane % (Auto) Dane # Seg Neutrophils % Seg Neuts % (Manual) Lymphocytes % (Manual) Seg Neutrophils # Seg Neutrophils # Man Lymphocytes # (Manual) POC ABG pCO2 POC ABG pO2 46 L Potassium Carbon Dioxide BUN Creatinine Glucose POC Glucose 216 H 213 H Calcium AST C-Reactive Protein Total Protein Albumin 08/13/16 08/13/16 08/14/16 21:23 21:32 05:49 WBC 14.6 H Hgb Hct Lymph % (Auto) Dane % (Auto) Dane # Seg Neutrophils % Seg Neuts % (Manual) 82.0 H Lymphocytes % (Manual) 7.0 L Seg Neutrophils # Seg Neutrophils # Man 12.0 H Lymphocytes # (Manual) 1.0 L POC ABG pCO2 POC ABG pO2 Potassium Carbon Dioxide BUN Creatinine Glucose POC Glucose 246 H Calcium AST C-Reactive Protein 9.70 H Total Protein Albumin 08/14/16 08/14/16 08/14/16 05:49 06:28 11:51 WBC Hgb Hct Lymph % (Auto) Dane % (Auto) Dane # Seg Neutrophils % Seg Neuts % (Manual) Lymphocytes % (Manual) Seg Neutrophils # Seg Neutrophils # Man Lymphocytes # (Manual) POC ABG pCO2 POC ABG pO2 Potassium 3.4 L Carbon Dioxide BUN 18 H Creatinine Glucose 138 H POC Glucose 122 H 187 H Calcium AST C-Reactive Protein Total Protein Albumin
[2016-08-14] MEDS: PERCOCET 5/325 PO PRN (18:45)
[2016-08-15] MEDS: PROVENTIL IH SCH ×4 (02:34→20:33)
[2016-08-15 06:49] LABS: Hemoglobin 12.8 gm/dl (10.1-14.3); Mean Corpuscular HGB Conc 34 % (30-34); Mean Corpuscular Hemoglobin 32 pg (28-32); Mean Corpuscular Volume 94 fl (79-97); Platelet Count 380 K/mm3 (140-440); Red Blood Count 4.04 M/mm3 (3.65-5.03); Red Cell Distribution Width 14.6 % (13.2-15.2); White Blood Count 14.3 K/mm3 (4.5-11.0)
[2016-08-15] MEDS: NOVOLOG SUB-Q SCH ×4 (08:24→23:11)
[2016-08-15] MEDS: BROVANA NEBU IH SCH ×2 (09:09→20:33)
[2016-08-15] MEDS: PULMICORT IH SCH ×2 (09:09→20:33)
[2016-08-15 10:56] LABS: Basophils % (Manual) 0 % (0.0-1.8); Blastocytes % (Manual) 0 %; Eosinophils % (Manual) 0 % (0.0-4.3); Large Platelets Few; RBC Morphology Normal
[2016-08-15 10:57] LABS: Diff Status Complete
[2016-08-15] MEDS: SYNTHROID PO SCH (11:19)
[2016-08-15] MEDS: COZAAR PO SCH (11:19)
[2016-08-15] MEDS: ZOCOR PO SCH (11:20)
[2016-08-15] MEDS: NORVASC PO SCH (11:20)
[2016-08-15] MEDS: TRADJENTA PO SCH (11:20)
[2016-08-15] MEDS: COREG PO SCH ×2 (11:20→23:11)
[2016-08-15] MEDS: LEVAQUIN 750MG/150ML 750 MG/150 ML BAG IV SCH (11:21)
[2016-08-15] MEDS: LOVENOX SUB-Q SCH (11:22)
[2016-08-15] MEDS: MUCINEX ER PO SCH ×2 (11:23→23:12)
--- NOTE | 2016-08-15 12:56 | Progress Note ---
Assessment and Plan Assessment and plan: 1. Sepsis present on admission due to urinary tract infection and pneumonia with acute hypoxic respiratory failure -wbc stable- on steroids; cotn levaquin to cover atpyical pneumonia by pulmonary; cultures negative to date. Wean supplemental oxygen as tolerated and nebulization treatments. Afebrile; f/u pulmonary for further recommendations 2. Hypothyroidism-cotn medications 3. DM 2- cont meds; monitor accuchecks 4. Benign HTN - monitor BP; 5. Possible COPD- cont current breathing tx; wean IV solumedrol; cont brovana / albuterol / atrovent 6. DVT prophylaxis- lovenox History Interval history: f/u pneumonia, UTI Patient is seen on the bedside;sob comtinues to improve; still coughing alot but improving Hospitalist Physical - Constitutional Vitals: Temp Pulse Resp BP Pulse Ox 98 F 98 H 20 163/79 96 08/15/16 08:00 08/15/16 09:09 08/15/16 09:09 08/15/16 11:20 08/15/16 09:24 General appearance: Present: no acute distress (40% Venturi mask), well- nourished - EENT Eyes: Present: PERRL, EOM intact. Absent: scleral icterus, conjunctival injection ENT: hearing intact, clear oral mucosa - Neck Neck: Present: supple. Absent: enlarged thyroid, masses or JVD - Respiratory Respiratory effort: normal Respiratory: bilateral: diminished, wheezing, negative: rales, rhonchi - Cardiovascular Rhythm: regular Heart Sounds: Present: S1 & S2. Absent: gallop - Extremities Extremities: no ischemia, pulses intact, pulses symmetrical, No edema Peripheral Pulses: within normal limits - Abdominal General gastrointestinal: soft, non-tender, normal bowel sounds - Integumentary Integumentary: Present: clear - Psychiatric Psychiatric: appropriate mood/affect - Neurologic Neurologic: CNII-XII intact, moves all extremities Results - Labs CBC & Chem 7: 08/15/16 05:47 08/14/16 05:49 Labs: Laboratory Last Values WBC 14.3 K/mm3 (4.5-11.0) H 08/15/16 05:47 RBC 4.04 M/mm3 (3.65-5.03) 08/15/16 05:47 Hgb 12.8 gm/dl (10.1-14.3) 08/15/16 05:47 Hct 38.0 % (30.3-42.9) 08/15/16 05:47 MCV 94 fl (79-97) 08/15/16 05:47 MCH 32 pg (28-32) 08/15/16 05:47 MCHC 34 % (30-34) 08/15/16 05:47 RDW 14.6 % (13.2-15.2) 08/15/16 05:47 Plt Count 380 K/mm3 (140-440) 08/15/16 05:47 Lymph % (Auto) 8.9 % (13.4-35.0) L 08/12/16 05:15 [place] % (Auto) % (0.0-7.3) 08/15/16 05:47 Eos % (Auto) % (0.0-4.3) 08/15/16 05:47 Baso % (Auto) 0.1 % (0.0-1.8) 08/12/16 05:15 Lymph # 1.5 K/mm3 (1.2-5.4) 08/12/16 05:15 [place] # K/mm3 (0.0-0.8) 08/15/16 05:47 Eos # K/mm3 (0.0-0.4) 08/15/16 05:47 Baso # K/mm3 (0.0-0.1) 08/15/16 05:47 Add Manual Diff Complete 08/15/16 05:47 Total Counted 100 08/15/16 05:47 Seg Neutrophils % % (40.0-70.0) 08/15/16 05:47 Seg Neuts % (Manual) 78.0 % (40.0-70.0) H 08/15/16 05:47 Band Neutrophils % 4.0 % 08/15/16 05:47 Lymphocytes % (Manual) 12.0 % (13.4-35.0) L 08/15/16 05:47 Reactive Lymphs % (Man) 0 % 08/15/16 05:47 Monocytes % (Manual) 4.0 % (0.0-7.3) 08/15/16 05:47 Eosinophils % (Manual) 0 % (0.0-4.3) 08/15/16 05:47 Basophils % (Manual) 0 % (0.0-1.8) 08/15/16 05:47 Metamyelocytes % 1.0 % 08/15/16 05:47 Myelocytes % 0 % 08/15/16 05:47 Promyelocytes % 1.0 % 08/15/16 05:47 Blast Cells % 0 % 08/15/16 05:47 Nucleated RBC % Not Reportable 08/15/16 05:47 Seg Neutrophils # K/mm3 (1.8-7.7) 08/15/16 05:47 Seg Neutrophils # Man 11.2 K/mm3 (1.8-7.7) H 08/15/16 05:47 Band Neutrophils # 0.6 K/mm3 08/15/16 05:47 Lymphocytes # (Manual) 1.7 K/mm3 (1.2-5.4) 08/15/16 05:47 Abs React Lymphs (Man) 0.0 K/mm3 08/15/16 05:47 Monocytes # (Manual) 0.6 K/mm3 (0.0-0.8) 08/15/16 05:47 Eosinophils # (Manual) 0.0 K/mm3 (0.0-0.4) 08/15/16 05:47 Basophils # (Manual) 0.0 K/mm3 (0.0-0.1) 08/15/16 05:47 Metamyelocytes # 0.1 K/mm3 08/15/16 05:47 Myelocytes # 0.0 K/mm3 08/15/16 05:47 Promyelocytes # 0.1 K/mm3 08/15/16 05:47 Blast Cells # 0.0 K/mm3 08/15/16 05:47 WBC Morphology Not Reportable 08/15/16 05:47 Hypersegmented Neuts Not Reportable 08/15/16 05:47 Hyposegmented Neuts Not Reportable 08/15/16 05:47 Hypogranular Neuts Not Reportable 08/15/16 05:47 Smudge Cells Not Reportable 08/15/16 05:47 Toxic Granulation Not Reportable 08/15/16 05:47 Toxic Vacuolation Not Reportable 08/15/16 05:47 Dohle Bodies Not Reportable 08/15/16 05:47 Pel[place]-Huet Anomaly Not Reportable 08/15/16 05:47 [place] Rods Not Reportable 08/15/16 05:47 Platelet Estimate Appears normal 08/15/16 05:47 Clumped Platelets Not Reportable 08/15/16 05:47 Plt Clumps, EDTA Not Reportable 08/15/16 05:47 Large Platelets Few 08/15/16 05:47 Giant Platelets Not Reportable 08/15/16 05:47 Platelet Satelliting Not Reportable 08/15/16 05:47 Plt Morphology Comment Not Reportable 08/15/16 05:47 RBC Morphology Normal 08/15/16 05:47 Dimorphic RBCs Not Reportable 08/15/16 05:47 Polychromasia Not Reportable 08/15/16 05:47 Hypochromasia Not Reportable 08/15/16 05:47 Poikilocytosis Not Reportable 08/15/16 05:47 Anisocytosis Not Reportable 08/15/16 05:47 Microcytosis Not Reportable 08/15/16 05:47 Macrocytosis Not Reportable 08/15/16 05:47 Spherocytes Not Reportable 08/15/16 05:47 Pappenheimer Bodies Not Reportable 08/15/16 05:47 Sickle Cells Not Reportable 08/15/16 05:47 Target Cells Not Reportable 08/15/16 05:47 Tear Drop Cells Not Reportable 08/15/16 05:47 Ovalocytes Not Reportable 08/15/16 05:47 Helmet Cells Not Reportable 08/15/16 05:47 [place] Bodies Not Reportable 08/15/16 05:47 [place] Rings Not Reportable 08/15/16 05:47 [place] Cells Not Reportable 08/15/16 05:47 Bite Cells Not Reportable 08/15/16 05:47 Crenated Cell Not Reportable 08/15/16 05:47 Elliptocytes Not Reportable 08/15/16 05:47 Acanthocytes (Spur) Not Reportable 08/15/16 05:47 Rouleaux Not Reportable 08/15/16 05:47 Hemoglobin C Crystals Not Reportable 08/15/16 05:47 Schistocytes Not Reportable 08/15/16 05:47 Malaria parasites Not Reportable 08/15/16 05:47 [place] Bodies Not Reportable 08/15/16 05:47 Hem Pathologist Commnt No 08/15/16 05:47 PT 13.6 Sec. (12.2-14.9) 08/08/16 12:04 INR 1.05 (0.87-1.13) 08/08/16 12:04 APTT 28.6 Sec. (24.2-36.6) 08/08/16 14:04 POC ABG pH 7.402 (7.35-7.45) 08/13/16 08:36 POC ABG pCO2 41.8 (35-45) 08/13/16 08:36 POC ABG pO2 46 (80-105) L 08/13/16 08:36 POC ABG HCO3 26.0 08/13/16 08:36 POC ABG Total CO2 27 08/13/16 08:36 POC ABG O2 Sat 82 08/13/16 08:36 POC ABG Base Excess 1 08/13/16 08:36 VBG pH 7.317 (7.320-7.420) L 08/08/16 12:04 FiO2 21 % 08/13/16 08:36 Sodium 145 mmol/L (137-145) 08/14/16 05:49 Potassium 3.4 mmol/L (3.6-5.0) L 08/14/16 05:49 Chloride 103.4 mmol/L (98-107) 08/14/16 05:49 Carbon Dioxide 30 mmol/L (22-30) D 08/14/16 05:49 Anion Gap 15 mmol/L 08/14/16 05:49 BUN 18 mg/dL (7-17) H 08/14/16 05:49 Creatinine 0.7 mg/dL (0.7-1.2) D 08/14/16 05:49 Estimated GFR > 60 ml/min 08/14/16 05:49 BUN/Creatinine Ratio 25.71 % 08/14/16 05:49 Glucose 138 mg/dL (65-100) H 08/14/16 05:49 POC Glucose 117 (70-105) H 08/15/16 06:38 Hemoglobin A1c 7.0 % (4-6) H 08/08/16 12:04 Lactic Acid 0.9 mmol/L (0.7-2.0) 08/09/16 14:54 Calcium 9.1 mg/dL (8.4-10.2) 08/14/16 05:49 Total Bilirubin 0.6 mg/dL (0.1-1.2) 08/09/16 05:04 AST 48 units/L (5-40) H 08/09/16 05:04 ALT 26 units/L (7-56) 08/09/16 05:04 Alkaline Phosphatase 62 units/L (35-129) 08/09/16 05:04 Total Creatine Kinase 976 units/L (30-135) H 08/08/16 12:04 CK-MB (CK-2) 4.1 ng/mL (0.0-4.0) H 08/08/16 12:04 CK-MB (CK-2) Rel Index 0.4 (0-4) 08/08/16 12:04 Troponin T < 0.010 ng/mL (0.00-0.029) 08/08/16 12:04 C-Reactive Protein 9.70 mg/dL (0.00-1.30) H 08/13/16 21:32 NT-Pro-B Natriuret Pep 25.33 pg/mL (0-900) 08/10/16 11:06 Total Protein 6.2 g/dL (6.3-8.2) L D 08/09/16 05:04 Albumin 3.6 g/dL (3.9-5) L 08/09/16 05:04 Albumin/Globulin Ratio 1.4 % 08/09/16 05:04 TSH 1.000 mlU/mL (0.270-4.200) 08/10/16 11:06 Urine Color Yellow (Yellow) 08/08/16 11:54 Urine Turbidity Clear (Clear) 08/08/16 11:54 Urine pH 5.0 (5.0-7.0) 08/08/16 11:54 Ur Specific [place] 1.025 (1.003-1.030) 08/08/16 11:54 Urine Protein 100 mg/dl mg/dL (Negative) 08/08/16 11:54 Urine Glucose (UA) Neg mg/dL (Negative) 08/08/16 11:54 Urine Ketones 20 mg/dL (Negative) 08/08/16 11:54 Urine Blood Sm (Negative) 08/08/16 11:54 Urine Nitrite Neg (Negative) 08/08/16 11:54 Urine Bilirubin Neg (Negative) 08/08/16 11:54 Urine Urobilinogen < 2.0 mg/dL (<2.0) 08/08/16 11:54 Ur Leukocyte Esterase Neg (Negative) 08/08/16 11:54 Urine WBC (Auto) 8.0 /HPF (0.0-6.0) H 08/08/16 11:54 Urine RBC (Auto) 3.0 /HPF (0.0-6.0) 08/08/16 11:54 U Epithel Cells (Auto) 1.0 /HPF (0-13.0) 08/08/16 11:54 Urine Mucus 3+ /HPF 08/08/16 11:54 Microbiology 08/08/16 12:04 Peripheral/Venous Blood Culture - Final NO GROWTH AFTER 5 DAYS 08/08/16 12:04 Peripheral/Venous Blood Culture - Final NO GROWTH AFTER 5 DAYS 08/08/16 14:34 Urine,Clean Catch Urine Culture - Final
--- NOTE | 2016-08-15 14:53 | Progress Note ---
Assessment and Plan This 61 year old female admitted with a complaint of shortness of breath, cough, wheezing and pleuritic chest pain. Patient coughing up white sputum. Denies hemoptysis. Patient denies fever and chills. Patient has multiple medical problems COPD,Hypertension,diabetes,Hypothyroidism and Hyperlipidemia..Patient has history of smoking 1/2 a pack a day for 19 years. 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 Not . Has 2 children. Patient resting on 3 litres O2.O2 satuaration 96%. Patient says breathing better.No acute respiratory distress. - Patient Problems (1) Hypoxia Current Visit: Yes Status: Acute Plan to address problem: Patients O2 satuaration 96% on 3 litres. Patients PO2 on room air 46. Patient is candidate for home O2. Recommend Home O2 3 litres Via nasal canula. (2) Pneumonia Current Visit: Yes Status: Acute Qualifiers: Pneumonia type: due to unspecified organism Aspiration pneumonia type: A Laterality: bilateral Lung location: unspecified part of lung Qualified Code (s): J18.9 - Pneumonia, unspecified organism Plan to address problem: Patient is on I/V Levaquineand I/V vancomycin. (3) UTI (urinary tract infection) Current Visit: Yes Status: Acute Qualifiers: Urinary tract infection type: acute cystitis Hematuria presence: H Indwelling urinary catheter type: I Encounter type: E Plan to address problem: Patient is on I/V Levaquine and I/V vancomycin. (4) Hypothyroidism (acquired) Current Visit: Yes Status: Chronic (5) T2DM (type 2 diabetes mellitus) Current Visit: Yes Status: Chronic Qualifiers: Diabetes mellitus complication status: without complication Diabetes mellitus complication detail: D Diabetic retinopathy severity: D Proliferative retinopathy type: P Diabetes mellitus macular edema: D Diabetes mellitus senior care insulin use: without termite exterminator use Laterality: L Chronic kidney disease stage: C Qualified Code(s): E11.9 - Type 2 diabetes mellitus without complications Plan to address problem: Management as per [facility] care. (6) Hypertension Current Visit: No Status: Chronic Qualifiers: Hypertension type: essential hypertension Qualified Code(s): I10 - Essential (primary) hypertension Plan to address problem: Management as per primary care. (7) COPD exacerbation Current Visit: Yes Status: Acute Plan to address problem: Possible COPD exagerbation Continue O2 supplementation. Tapering solumedral to 40 mg I/V q 12 hours. Brovanna aerosol treatments q 12 hours. Albuterol/atrovent aerosol treatments q 6 hours prn for shortness of breath Continue Lovenox Subjective Date of service: 08/15/16 Principal diagnosis: Acute Hypoxemic Resp Failure Interval history: Patient resting on 3 litres O2.O2 satuaration 96%. Patient says breathing better.No acute respiratory distress. Objective Vital Signs - 12hr 08/15/16 08/15/16 08/15/16 08:00 09:09 09:24 Temperature 98 F Pulse Rate [ 98 H Anterior Bilateral Throughout] Pulse Rate [ 90 Left Radial] Respiratory 20 Rate Respiratory 20 Rate [Anterior Bilateral Throughout] Blood Pressure Blood Pressure 140/79 [Left Arm] O2 Sat by Pulse 91 96 Oximetry 08/15/16 08/15/16 11:19 11:20 Temperature Pulse Rate [ Anterior Bilateral Throughout] Pulse Rate [ Left Radial] Respiratory Rate Respiratory Rate [Anterior Bilateral Throughout] Blood Pressure 163/79 163/79 Blood Pressure [Left Arm] O2 Sat by Pulse Oximetry Constitutional: alert, appears uncomfortable Eyes: non-icteric ENT: oropharynx moist Neck: supple, no JVD Effort: mildly labored Ascultation: Bilateral: wheezes (slight), rales (basilar predominant), rhonchi ( Diffuse bilateral ronchi.) Cardiovascular: regular rate and rhythm Gastrointestinal: normoactive bowel sounds, soft, non-tender, non-distended Integumentary: normal Extremities: no cyanosis, no edema, pulses normal, no ischemia or petechiae Neurologic: normal mental status, non-focal exam, pupils equal and round, CN II- XII normal Psychiatric: mood appropriate, affect normal CBC and BMP: 08/15/16 05:47 08/14/16 05:49 ABG, PT/INR, D-dimer: ABG POC ABG pH 7.402 (7.35-7.45) 08/13/16 08:36 POC ABG pCO2 41.8 (35-45) 08/13/16 08:36 POC ABG pO2 46 (80-105) L 08/13/16 08:36 POC ABG HCO3 26.0 08/13/16 08:36 POC ABG Total CO2 27 08/13/16 08:36 POC ABG O2 Sat 82 08/13/16 08:36 PT/INR, D-dimer PT 13.6 Sec. (12.2-14.9) 08/08/16 12:04 INR 1.05 (0.87-1.13) 08/08/16 12:04 Abnormal lab findings: Abnormal Labs 08/08/16 08/09/16 08/09/16 22:56 05:04 05:04 WBC Hgb 14.4 H Hct 43.1 H D Lymph % (Auto) [place] % (Auto) 12.9 H [place] # 1.3 H Seg Neutrophils % Seg Neuts % (Manual) Lymphocytes % (Manual) Seg Neutrophils # Seg Neutrophils # Man Lymphocytes # (Manual) POC ABG pCO2 POC ABG pO2 Potassium Carbon Dioxide 21 L BUN Creatinine Glucose 146 H POC Glucose 108 H Calcium AST 48 H C-Reactive Protein Total Protein 6.2 L D Albumin 3.6 L 08/09/16 08/09/16 08/09/16 07:40 11:29 16:52 WBC Hgb Hct Lymph % (Auto) [place] % (Auto) [place] # Seg Neutrophils % Seg Neuts % (Manual) Lymphocytes % (Manual) Seg Neutrophils # Seg Neutrophils # Man Lymphocytes # (Manual) POC ABG pCO2 POC ABG pO2 Potassium Carbon Dioxide BUN Creatinine Glucose POC Glucose 168 H 138 H 140 H Calcium AST C-Reactive Protein Total Protein Albumin 08/09/16 08/09/16 08/10/16 17:51 22:07 04:39 WBC 11.5 H Hgb Hct Lymph % (Auto) [place] % (Auto) 8.1 H [place] # 0.9 H Seg Neutrophils % 75.6 H Seg Neuts % (Manual) Lymphocytes % (Manual) Seg Neutrophils # 8.7 H Seg Neutrophils # Man Lymphocytes # (Manual) POC ABG pCO2 32.6 L POC ABG pO2 56 L Potassium Carbon Dioxide BUN Creatinine Glucose POC Glucose 166 H Calcium AST C-Reactive Protein Total Protein Albumin 08/10/16 08/10/16 08/10/16 04:39 08:20 12:23 WBC Hgb Hct Lymph % (Auto) [place] % (Auto) [place] # Seg Neutrophils % Seg Neuts % (Manual) Lymphocytes % (Manual) Seg Neutrophils # Seg Neutrophils # Man Lymphocytes # (Manual) POC ABG pCO2 POC ABG pO2 Potassium 3.5 L Carbon Dioxide BUN Creatinine 1.5 H D Glucose 164 H POC Glucose 112 H 124 H Calcium 8.1 L AST C-Reactive Protein Total Protein Albumin 08/10/16 08/10/16 08/10/16 16:23 20:49 23:25 WBC Hgb Hct Lymph % (Auto) [place] % (Auto) [place] # Seg Neutrophils % Seg Neuts % (Manual) Lymphocytes % (Manual) Seg Neutrophils # Seg Neutrophils # Man Lymphocytes # (Manual) POC ABG pCO2 POC ABG pO2 Potassium Carbon Dioxide BUN Creatinine Glucose POC Glucose 130 H 123 H 130 H Calcium AST C-Reactive Protein Total Protein Albumin 08/11/16 08/11/16 08/11/16 06:27 06:45 12:35 WBC 12.2 H Hgb Hct Lymph % (Auto) [place] % (Auto) 9.2 H [place] # 1.1 H Seg Neutrophils % 75.7 H Seg Neuts % (Manual) Lymphocytes % (Manual) Seg Neutrophils # 9.2 H Seg Neutrophils # Man Lymphocytes # (Manual) POC ABG pCO2 POC ABG pO2 Potassium Carbon Dioxide BUN Creatinine Glucose POC Glucose 132 H 170 H Calcium AST C-Reactive Protein Total Protein Albumin 08/11/16 08/11/16 08/12/16 16:14 21:55 05:15 WBC 16.7 H Hgb Hct Lymph % (Auto) 8.9 L [place] % (Auto) [place] # 1.0 H Seg Neutrophils % 84.7 H Seg Neuts % (Manual) Lymphocytes % (Manual) Seg Neutrophils # 14.1 H Seg Neutrophils # Man Lymphocytes # (Manual) POC ABG pCO2 POC ABG pO2 Potassium Carbon Dioxide BUN Creatinine Glucose POC Glucose 248 H 196 H Calcium AST C-Reactive Protein Total Protein Albumin 08/12/16 08/12/16 08/12/16 06:32 12:26 16:32 WBC Hgb Hct Lymph % (Auto) [place] % (Auto) [place] # Seg Neutrophils % Seg Neuts % (Manual) Lymphocytes % (Manual) Seg Neutrophils # Seg Neutrophils # Man Lymphocytes # (Manual) POC ABG pCO2 POC ABG pO2 Potassium Carbon Dioxide BUN Creatinine Glucose POC Glucose 177 H 255 H 164 H Calcium AST C-Reactive Protein Total Protein Albumin 08/12/16 08/13/16 08/13/16 21:44 06:26 07:08 WBC 20.3 H Hgb Hct Lymph % (Auto) [place] % (Auto) [place] # Seg Neutrophils % Seg Neuts % (Manual) 82.0 H Lymphocytes % (Manual) Seg Neutrophils # Seg Neutrophils # Man 16.6 H Lymphocytes # (Manual) POC ABG pCO2 POC ABG pO2 Potassium Carbon Dioxide BUN Creatinine Glucose POC Glucose 234 H 144 H Calcium AST C-Reactive Protein Total Protein Albumin 08/13/16 08/13/16 08/13/16 08:36 12:08 16:46 WBC Hgb Hct Lymph % (Auto) [place] % (Auto) [place] # Seg Neutrophils % Seg Neuts % (Manual) Lymphocytes % (Manual) Seg Neutrophils # Seg Neutrophils # Man Lymphocytes # (Manual) POC ABG pCO2 POC ABG pO2 46 L Potassium Carbon Dioxide BUN Creatinine Glucose POC Glucose 216 H 213 H Calcium AST C-Reactive Protein Total Protein Albumin 08/13/16 08/13/16 08/14/16 21:23 21:32 05:49 WBC 14.6 H Hgb Hct Lymph % (Auto) [place] % (Auto) [place] # Seg Neutrophils % Seg Neuts % (Manual) 82.0 H Lymphocytes % (Manual) 7.0 L Seg Neutrophils # Seg Neutrophils # Man 12.0 H Lymphocytes # (Manual) 1.0 L POC ABG pCO2 POC ABG pO2 Potassium Carbon Dioxide BUN Creatinine Glucose POC Glucose 246 H Calcium AST C-Reactive Protein 9.70 H Total Protein Albumin 08/14/16 08/14/16 08/14/16 05:49 06:28 11:51 WBC Hgb Hct Lymph % (Auto) [place] % (Auto) [place] # Seg Neutrophils % Seg Neuts % (Manual) Lymphocytes % (Manual) Seg Neutrophils # Seg Neutrophils # Man Lymphocytes # (Manual) POC ABG pCO2 POC ABG pO2 Potassium 3.4 L Carbon Dioxide BUN 18 H Creatinine Glucose 138 H POC Glucose 122 H 187 H Calcium AST C-Reactive Protein Total Protein Albumin 08/14/16 08/14/16 08/15/16 16:51 21:43 05:47 WBC 14.3 H Hgb Hct Lymph % (Auto) [place] % (Auto) [place] # Seg Neutrophils % Seg Neuts % (Manual) 78.0 H Lymphocytes % (Manual) 12.0 L Seg Neutrophils # Seg Neutrophils # Man 11.2 H Lymphocytes # (Manual) POC ABG pCO2 POC ABG pO2 Potassium Carbon Dioxide BUN Creatinine Glucose POC Glucose 142 H 292 H Calcium AST C-Reactive Protein Total Protein Albumin 08/15/16 06:38 WBC Hgb Hct Lymph % (Auto) [place] % (Auto) [place] # Seg Neutrophils % Seg Neuts % (Manual) Lymphocytes % (Manual) Seg Neutrophils # Seg Neutrophils # Man Lymphocytes # (Manual) POC ABG pCO2 POC ABG pO2 Potassium Carbon Dioxide BUN Creatinine Glucose POC Glucose 117 H Calcium AST C-Reactive Protein Total Protein Albumin
[2016-08-15] MEDS: PERCOCET 5/325 PO PRN (20:45)
[2016-08-15] MEDS: AMBIEN PO PRN (23:18)
[2016-08-16] MEDS: PROVENTIL IH SCH ×4 (02:20→19:46)
[2016-08-16 07:11] LABS: Hematocrit 37.5 % (30.3-42.9); Hemoglobin 12.5 gm/dl (10.1-14.3); Mean Corpuscular HGB Conc 33 % (30-34); Mean Corpuscular Hemoglobin 32 pg (28-32); Mean Corpuscular Volume 95 fl (79-97); Platelet Count 401 K/mm3 (140-440); Red Blood Count 3.95 M/mm3 (3.65-5.03); Red Cell Distribution Width 14.1 % (13.2-15.2); White Blood Count 16.3 K/mm3 (4.5-11.0)
[2016-08-16 07:23] LABS: Anion Gap 17 mmol/L; BUN/Creatinine Ratio 31.66; Blood Urea Nitrogen 19 mg/dL (7-17); Calcium 9.1 mg/dL (8.4-10.2); Carbon Dioxide 28 mmol/L (22-30); Chloride 103.1 mmol/L (98-107); Glucose 138 mg/dL (65-100); Potassium 3.9 mmol/L (3.6-5.0); Sodium 144 mmol/L (137-145)
[2016-08-16] MEDS: PULMICORT IH SCH ×2 (08:43→19:46)
[2016-08-16] MEDS: BROVANA NEBU IH SCH ×2 (08:43→19:46)
[2016-08-16] MEDS: LOVENOX SUB-Q SCH (09:03)
[2016-08-16] MEDS: TRADJENTA PO SCH (09:03)
[2016-08-16] MEDS: ZOCOR PO SCH (09:04)
[2016-08-16] MEDS: SYNTHROID PO SCH (09:04)
[2016-08-16] MEDS: COREG PO SCH ×2 (09:04→21:14)
[2016-08-16] MEDS: COZAAR PO SCH (09:05)
[2016-08-16] MEDS: NORVASC PO SCH (09:06)
[2016-08-16] MEDS: NOVOLOG SUB-Q SCH ×4 (09:08→21:43)
[2016-08-16 09:38] LABS: Basophils % (Manual) 0 % (0.0-1.8); Blastocytes % (Manual) 0 %; Diff Status Complete; Eosinophils % (Manual) 0 % (0.0-4.3); Large Platelets Few; RBC Morphology Normal
[2016-08-16] MEDS: MUCINEX ER PO SCH ×2 (10:00→21:14)
--- NOTE | 2016-08-16 13:32 | Progress Note ---
Assessment and Plan This 61 year old female admitted with a complaint of shortness of breath, cough, wheezing and pleuritic chest pain. Patient coughing up white sputum. Denies hemoptysis. Patient denies fever and chills. Patient has multiple medical problems COPD,Hypertension,diabetes,Hypothyroidism and Hyperlipidemia..Patient has history of smoking 1/2 a pack a day for 19 years. 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 Not . Has 2 children. Patient resting on 3 litres O2.O2 satuaration 95%. Patient says breathing better.No acute respiratory distress. - Patient Problems (1) Hypoxia Current Visit: Yes Status: Acute Plan to address problem: Patients O2 satuaration 96% on 3 litres. Patients PO2 on room air 46. Patient is candidate for home O2. Recommend Home O2 3 litres Via nasal canula. (2) Pneumonia Current Visit: Yes Status: Acute Qualifiers: Pneumonia type: due to unspecified organism Aspiration pneumonia type: A Laterality: bilateral Lung location: unspecified part of lung Qualified Code (s): J18.9 - Pneumonia, unspecified organism Plan to address problem: Patient is on I/V Levaquineand I/V vancomycin. (3) UTI (urinary tract infection) Current Visit: Yes Status: Acute Qualifiers: Urinary tract infection type: acute cystitis Hematuria presence: H Indwelling urinary catheter type: I Encounter type: E Plan to address problem: Patient is on I/V Levaquine and I/V vancomycin. (4) Hypothyroidism (acquired) Current Visit: Yes Status: Chronic Plan to address problem: Patient is on Levothyroxine. Management as per primary care. (5) T2DM (type 2 diabetes mellitus) Current Visit: Yes Status: Chronic Qualifiers: Diabetes mellitus complication status: without complication Diabetes mellitus complication detail: D Diabetic retinopathy severity: D Proliferative retinopathy type: P Diabetes mellitus macular edema: D Diabetes mellitus incendiary powder mixer insulin use: without incendiary powder mixer use Laterality: L Chronic kidney disease stage: C Qualified Code(s): E11.9 - Type 2 diabetes mellitus without complications Plan to address problem: Management as per [facility] care. (6) Hypertension Current Visit: No Status: Chronic Qualifiers: Hypertension type: essential hypertension Qualified Code(s): I10 - Essential (primary) hypertension Plan to address problem: Management as per primary care. (7) COPD exacerbation Current Visit: Yes Status: Acute Plan to address problem: Possible COPD exagerbation Continue O2 supplementation. Tapering solumedral to 40 mg I/V q 12 hours. Brovanna aerosol treatments q 12 hours. Albuterol/atrovent aerosol treatments q 6 hours prn for shortness of breath Continue Lovenox Subjective Date of service: 08/16/16 Principal diagnosis: Acute Hypoxemic Resp Failure Interval history: Patient resting on 3 litres O2.O2 satuaration 95%. Patient says breathing better.No acute respiratory distress. Objective Vital Signs - 12hr 08/16/16 08/16/16 08/16/16 02:20 02:38 08:11 Temperature 98.0 F Pulse Rate Pulse Rate [ 60 65 Anterior Bilateral Throughout] Pulse Rate [ 76 Right Radial] Respiratory 20 Rate Respiratory 20 20 Rate [Anterior Bilateral Throughout] Blood Pressure Blood Pressure 123/71 [Left Arm] O2 Sat by Pulse 98 Oximetry 08/16/16 08/16/16 08/16/16 08:43 08:49 08:59 Temperature Pulse Rate Pulse Rate [ 84 69 Anterior Bilateral Throughout] Pulse Rate [ Right Radial] Respiratory Rate Respiratory 20 20 Rate [Anterior Bilateral Throughout] Blood Pressure Blood Pressure [Left Arm] O2 Sat by Pulse 95 Oximetry 08/16/16 08/16/16 09:04 09:05 Temperature Pulse Rate 76 76 Pulse Rate [ Anterior Bilateral Throughout] Pulse Rate [ Right Radial] Respiratory Rate Respiratory Rate [Anterior Bilateral Throughout] Blood Pressure 123/71 123/71 Blood Pressure [Left Arm] O2 Sat by Pulse Oximetry Constitutional: alert, appears uncomfortable Eyes: non-icteric ENT: oropharynx moist Neck: supple, no JVD Effort: mildly labored Ascultation: Bilateral: wheezes (slight), rales (basilar predominant), rhonchi ( Diffuse bilateral ronchi.) Cardiovascular: regular rate and rhythm Gastrointestinal: normoactive bowel sounds, soft, non-tender, non-distended Integumentary: normal Extremities: no cyanosis, no edema, pulses normal, no ischemia or petechiae Neurologic: normal mental status, non-focal exam, pupils equal and round, CN II- XII normal Psychiatric: mood appropriate, affect normal CBC and BMP: 08/16/16 06:04 08/16/16 06:04 ABG, PT/INR, D-dimer: ABG POC ABG pH 7.402 (7.35-7.45) 08/13/16 08:36 POC ABG pCO2 41.8 (35-45) 08/13/16 08:36 POC ABG pO2 46 (80-105) L 08/13/16 08:36 POC ABG HCO3 26.0 08/13/16 08:36 POC ABG Total CO2 27 08/13/16 08:36 POC ABG O2 Sat 82 08/13/16 08:36 PT/INR, D-dimer PT 13.6 Sec. (12.2-14.9) 08/08/16 12:04 INR 1.05 (0.87-1.13) 08/08/16 12:04 Abnormal lab findings: Abnormal Labs 08/08/16 08/09/16 08/09/16 22:56 05:04 05:04 WBC Hgb 14.4 H Hct 43.1 H D Lymph % (Auto) [place] % (Auto) 12.9 H [place] # 1.3 H Seg Neutrophils % Seg Neuts % (Manual) Lymphocytes % (Manual) Nucleated RBC % Seg Neutrophils # Seg Neutrophils # Man Lymphocytes # (Manual) POC ABG pCO2 POC ABG pO2 Potassium Carbon Dioxide 21 L BUN Creatinine Glucose 146 H POC Glucose 108 H Calcium AST 48 H C-Reactive Protein Total Protein 6.2 L D Albumin 3.6 L 08/09/16 08/09/16 08/09/16 07:40 11:29 16:52 WBC Hgb Hct Lymph % (Auto) [place] % (Auto) [place] # Seg Neutrophils % Seg Neuts % (Manual) Lymphocytes % (Manual) Nucleated RBC % Seg Neutrophils # Seg Neutrophils # Man Lymphocytes # (Manual) POC ABG pCO2 POC ABG pO2 Potassium Carbon Dioxide BUN Creatinine Glucose POC Glucose 168 H 138 H 140 H Calcium AST C-Reactive Protein Total Protein Albumin 08/09/16 08/09/16 08/10/16 17:51 22:07 04:39 WBC 11.5 H Hgb Hct Lymph % (Auto) [place] % (Auto) 8.1 H [place] # 0.9 H Seg Neutrophils % 75.6 H Seg Neuts % (Manual) Lymphocytes % (Manual) Nucleated RBC % Seg Neutrophils # 8.7 H Seg Neutrophils # Man Lymphocytes # (Manual) POC ABG pCO2 32.6 L POC ABG pO2 56 L Potassium Carbon Dioxide BUN Creatinine Glucose POC Glucose 166 H Calcium AST C-Reactive Protein Total Protein Albumin 08/10/16 08/10/16 08/10/16 04:39 08:20 12:23 WBC Hgb Hct Lymph % (Auto) [place] % (Auto) [place] # Seg Neutrophils % Seg Neuts % (Manual) Lymphocytes % (Manual) Nucleated RBC % Seg Neutrophils # Seg Neutrophils # Man Lymphocytes # (Manual) POC ABG pCO2 POC ABG pO2 Potassium 3.5 L Carbon Dioxide BUN Creatinine 1.5 H D Glucose 164 H POC Glucose 112 H 124 H Calcium 8.1 L AST C-Reactive Protein Total Protein Albumin 08/10/16 08/10/16 08/10/16 16:23 20:49 23:25 WBC Hgb Hct Lymph % (Auto) [place] % (Auto) [place] # Seg Neutrophils % Seg Neuts % (Manual) Lymphocytes % (Manual) Nucleated RBC % Seg Neutrophils # Seg Neutrophils # Man Lymphocytes # (Manual) POC ABG pCO2 POC ABG pO2 Potassium Carbon Dioxide BUN Creatinine Glucose POC Glucose 130 H 123 H 130 H Calcium AST C-Reactive Protein Total Protein Albumin 08/11/16 08/11/16 08/11/16 06:27 06:45 12:35 WBC 12.2 H Hgb Hct Lymph % (Auto) [place] % (Auto) 9.2 H [place] # 1.1 H Seg Neutrophils % 75.7 H Seg Neuts % (Manual) Lymphocytes % (Manual) Nucleated RBC % Seg Neutrophils # 9.2 H Seg Neutrophils # Man Lymphocytes # (Manual) POC ABG pCO2 POC ABG pO2 Potassium Carbon Dioxide BUN Creatinine Glucose POC Glucose 132 H 170 H Calcium AST C-Reactive Protein Total Protein Albumin 08/11/16 08/11/16 08/12/16 16:14 21:55 05:15 WBC 16.7 H Hgb Hct Lymph % (Auto) 8.9 L [place] % (Auto) [place] # 1.0 H Seg Neutrophils % 84.7 H Seg Neuts % (Manual) Lymphocytes % (Manual) Nucleated RBC % Seg Neutrophils # 14.1 H Seg Neutrophils # Man Lymphocytes # (Manual) POC ABG pCO2 POC ABG pO2 Potassium Carbon Dioxide BUN Creatinine Glucose POC Glucose 248 H 196 H Calcium AST C-Reactive Protein Total Protein Albumin 08/12/16 08/12/16 08/12/16 06:32 12:26 16:32 WBC Hgb Hct Lymph % (Auto) [place] % (Auto) [place] # Seg Neutrophils % Seg Neuts % (Manual) Lymphocytes % (Manual) Nucleated RBC % Seg Neutrophils # Seg Neutrophils # Man Lymphocytes # (Manual) POC ABG pCO2 POC ABG pO2 Potassium Carbon Dioxide BUN Creatinine Glucose POC Glucose 177 H 255 H 164 H Calcium AST C-Reactive Protein Total Protein Albumin 08/12/16 08/13/16 08/13/16 21:44 06:26 07:08 WBC 20.3 H Hgb Hct Lymph % (Auto) [place] % (Auto) [place] # Seg Neutrophils % Seg Neuts % (Manual) 82.0 H Lymphocytes % (Manual) Nucleated RBC % Seg Neutrophils # Seg Neutrophils # Man 16.6 H Lymphocytes # (Manual) POC ABG pCO2 POC ABG pO2 Potassium Carbon Dioxide BUN Creatinine Glucose POC Glucose 234 H 144 H Calcium AST C-Reactive Protein Total Protein Albumin 08/13/16 08/13/16 08/13/16 08:36 12:08 16:46 WBC Hgb Hct Lymph % (Auto) [place] % (Auto) [place] # Seg Neutrophils % Seg Neuts % (Manual) Lymphocytes % (Manual) Nucleated RBC % Seg Neutrophils # Seg Neutrophils # Man Lymphocytes # (Manual) POC ABG pCO2 POC ABG pO2 46 L Potassium Carbon Dioxide BUN Creatinine Glucose POC Glucose 216 H 213 H Calcium AST C-Reactive Protein Total Protein Albumin 08/13/16 08/13/16 08/14/16 21:23 21:32 05:49 WBC 14.6 H Hgb Hct Lymph % (Auto) [place] % (Auto) [place] # Seg Neutrophils % Seg Neuts % (Manual) 82.0 H Lymphocytes % (Manual) 7.0 L Nucleated RBC % Seg Neutrophils # Seg Neutrophils # Man 12.0 H Lymphocytes # (Manual) 1.0 L POC ABG pCO2 POC ABG pO2 Potassium Carbon Dioxide BUN Creatinine Glucose POC Glucose 246 H Calcium AST C-Reactive Protein 9.70 H Total Protein Albumin 08/14/16 08/14/16 08/14/16 05:49 06:28 11:51 WBC Hgb Hct Lymph % (Auto) [place] % (Auto) [place] # Seg Neutrophils % Seg Neuts % (Manual) Lymphocytes % (Manual) Nucleated RBC % Seg Neutrophils # Seg Neutrophils # Man Lymphocytes # (Manual) POC ABG pCO2 POC ABG pO2 Potassium 3.4 L Carbon Dioxide BUN 18 H Creatinine Glucose 138 H POC Glucose 122 H 187 H Calcium AST C-Reactive Protein Total Protein Albumin 08/14/16 08/14/16 08/15/16 16:51 21:43 05:47 WBC 14.3 H Hgb Hct Lymph % (Auto) [place] % (Auto) [place] # Seg Neutrophils % Seg Neuts % (Manual) 78.0 H Lymphocytes % (Manual) 12.0 L Nucleated RBC % Seg Neutrophils # Seg Neutrophils # Man 11.2 H Lymphocytes # (Manual) POC ABG pCO2 POC ABG pO2 Potassium Carbon Dioxide BUN Creatinine Glucose POC Glucose 142 H 292 H Calcium AST C-Reactive Protein Total Protein Albumin 08/15/16 08/15/16 08/15/16 06:38 11:32 16:25 WBC Hgb Hct Lymph % (Auto) [place] % (Auto) [place] # Seg Neutrophils % Seg Neuts % (Manual) Lymphocytes % (Manual) Nucleated RBC % Seg Neutrophils # Seg Neutrophils # Man Lymphocytes # (Manual) POC ABG pCO2 POC ABG pO2 Potassium Carbon Dioxide BUN Creatinine Glucose POC Glucose 117 H 318 H 192 H Calcium AST C-Reactive Protein Total Protein Albumin 08/15/16 08/16/16 08/16/16 21:17 06:04 06:04 WBC 16.3 H Hgb Hct Lymph % (Auto) [place] % (Auto) [place] # Seg Neutrophils % Seg Neuts % (Manual) Lymphocytes % (Manual) Nucleated RBC % 1.0 H Seg Neutrophils # Seg Neutrophils # Man 10.9 H Lymphocytes # (Manual) POC ABG pCO2 POC ABG pO2 Potassium Carbon Dioxide BUN 19 H Creatinine 0.6 L Glucose 138 H POC Glucose 234 H Calcium AST C-Reactive Protein Total Protein Albumin 08/16/16 08/16/16 06:22 11:35 WBC Hgb Hct Lymph % (Auto) [place] % (Auto) [place] # Seg Neutrophils % Seg Neuts % (Manual) Lymphocytes % (Manual) Nucleated RBC % Seg Neutrophils # Seg Neutrophils # Man Lymphocytes # (Manual) POC ABG pCO2 POC ABG pO2 Potassium Carbon Dioxide BUN Creatinine Glucose POC Glucose 130 H 197 H Calcium AST C-Reactive Protein Total Protein Albumin
--- NOTE | 2016-08-16 14:46 | Progress Note ---
Assessment and Plan Assessment and plan: 1. Sepsis present on admission due to urinary tract infection and pneumonia with acute hypoxic respiratory failure -wbc mild increase -on steroids; cotn levaquin to cover atpyical pneumonia by pulmonary; cultures negative to date. Wean supplemental oxygen as tolerated and nebulization treatments. Afebrile; f/ u pulmonary for further recommendations 2. Hypothyroidism-cotn medications 3. DM 2- cont meds; monitor accuchecks 4. Benign HTN - monitor BP; 5. Possible COPD-cont current breathing tx; wean IV solumedrol; cont brovana / albuterol / atrovent 6. DVT prophylaxis- lovenox History Interval history: f/u pneumonia, UTI Patient is seen on the bedside;sob continues to improve; using incentive spirometry Hospitalist Physical - Constitutional Vitals: Temp Pulse Resp BP Pulse Ox 98.0 F 76 20 123/71 95 08/16/16 08:11 08/16/16 09:05 08/16/16 08:59 08/16/16 09:05 08/16/16 08:49 General appearance: Present: no acute distress (40% Venturi mask), well- nourished - EENT Eyes: Present: PERRL, EOM intact. Absent: scleral icterus, conjunctival injection ENT: hearing intact, clear oral mucosa, no oropharyngeal erythema, no poor dentition - Neck Neck: Present: supple, normal ROM. Absent: enlarged thyroid, masses or JVD - Respiratory Respiratory effort: normal Respiratory: bilateral: diminished, wheezing, negative: rales, rhonchi - Cardiovascular Rhythm: regular Heart Sounds: Present: S1 & S2. Absent: gallop - Extremities Extremities: no ischemia, pulses intact, pulses symmetrical, No edema Peripheral Pulses: within normal limits - Abdominal General gastrointestinal: soft, non-tender, non-distended, normal bowel sounds - Integumentary Integumentary: Present: clear - Psychiatric Psychiatric: appropriate mood/affect, intact judgment & insight, cooperative - Neurologic Neurologic: CNII-XII intact, moves all extremities Results - Labs CBC & Chem 7: 08/16/16 06:04 08/16/16 06:04 Labs: Laboratory Last Values WBC 16.3 K/mm3 (4.5-11.0) H 08/16/16 06:04 RBC 3.95 M/mm3 (3.65-5.03) 08/16/16 06:04 Hgb 12.5 gm/dl (10.1-14.3) 08/16/16 06:04 Hct 37.5 % (30.3-42.9) 08/16/16 06:04 MCV 95 fl (79-97) 08/16/16 06:04 MCH 32 pg (28-32) 08/16/16 06:04 MCHC 33 % (30-34) 08/16/16 06:04 RDW 14.1 % (13.2-15.2) 08/16/16 06:04 Plt Count 401 K/mm3 (140-440) 08/16/16 06:04 Lymph % (Auto) 8.9 % (13.4-35.0) L 08/12/16 05:15 [place] % (Auto) % (0.0-7.3) 08/15/16 05:47 Eos % (Auto) % (0.0-4.3) 08/15/16 05:47 Baso % (Auto) 0.1 % (0.0-1.8) 08/12/16 05:15 Lymph # 1.5 K/mm3 (1.2-5.4) 08/12/16 05:15 [place] # K/mm3 (0.0-0.8) 08/15/16 05:47 Eos # K/mm3 (0.0-0.4) 08/15/16 05:47 Baso # K/mm3 (0.0-0.1) 08/15/16 05:47 Add Manual Diff Complete 08/16/16 06:04 Total Counted 100 08/16/16 06:04 Seg Neutrophils % % (40.0-70.0) 08/15/16 05:47 Seg Neuts % (Manual) 67.0 % (40.0-70.0) 08/16/16 06:04 Band Neutrophils % 4.0 % 08/16/16 06:04 Lymphocytes % (Manual) 23.0 % (13.4-35.0) 08/16/16 06:04 Reactive Lymphs % (Man) 0 % 08/16/16 06:04 Monocytes % (Manual) 3.0 % (0.0-7.3) 08/16/16 06:04 Eosinophils % (Manual) 0 % (0.0-4.3) 08/16/16 06:04 Basophils % (Manual) 0 % (0.0-1.8) 08/16/16 06:04 Metamyelocytes % 2.0 % 08/16/16 06:04 Myelocytes % 1.0 % 08/16/16 06:04 Promyelocytes % 0 % 08/16/16 06:04 Blast Cells % 0 % 08/16/16 06:04 Nucleated RBC % 1.0 % (0.0-0.9) H 08/16/16 06:04 Seg Neutrophils # K/mm3 (1.8-7.7) 08/15/16 05:47 Seg Neutrophils # Man 10.9 K/mm3 (1.8-7.7) H 08/16/16 06:04 Band Neutrophils # 0.7 K/mm3 08/16/16 06:04 Lymphocytes # (Manual) 3.7 K/mm3 (1.2-5.4) 08/16/16 06:04 Abs React Lymphs (Man) 0.0 K/mm3 08/16/16 06:04 Monocytes # (Manual) 0.5 K/mm3 (0.0-0.8) 08/16/16 06:04 Eosinophils # (Manual) 0.0 K/mm3 (0.0-0.4) 08/16/16 06:04 Basophils # (Manual) 0.0 K/mm3 (0.0-0.1) 08/16/16 06:04 Metamyelocytes # 0.3 K/mm3 08/16/16 06:04 Myelocytes # 0.2 K/mm3 08/16/16 06:04 Promyelocytes # 0.0 K/mm3 08/16/16 06:04 Blast Cells # 0.0 K/mm3 08/16/16 06:04 WBC Morphology Not Reportable 08/16/16 06:04 Hypersegmented Neuts Not Reportable 08/16/16 06:04 Hyposegmented Neuts Not Reportable 08/16/16 06:04 Hypogranular Neuts Not Reportable 08/16/16 06:04 Smudge Cells Not Reportable 08/16/16 06:04 Toxic Granulation Not Reportable 08/16/16 06:04 Toxic Vacuolation Not Reportable 08/16/16 06:04 Dohle Bodies Not Reportable 08/16/16 06:04 Pelger-Huet Anomaly Not Reportable 08/16/16 06:04 Sebastián Rods Not Reportable 08/16/16 06:04 Platelet Estimate Appears normal 08/16/16 06:04 Clumped Platelets Not Reportable 08/16/16 06:04 Plt Clumps, EDTA Not Reportable 08/16/16 06:04 Large Platelets Few 08/16/16 06:04 Giant Platelets Not Reportable 08/16/16 06:04 Platelet Satelliting Not Reportable 08/16/16 06:04 Plt Morphology Comment Not Reportable 08/16/16 06:04 RBC Morphology Normal 08/16/16 06:04 Dimorphic RBCs Not Reportable 08/16/16 06:04 Polychromasia Not Reportable 08/16/16 06:04 Hypochromasia Not Reportable 08/16/16 06:04 Poikilocytosis Not Reportable 08/16/16 06:04 Anisocytosis Not Reportable 08/16/16 06:04 Microcytosis Not Reportable 08/16/16 06:04 Macrocytosis Not Reportable 08/16/16 06:04 Spherocytes Not Reportable 08/16/16 06:04 Pappenheimer Bodies Not Reportable 08/16/16 06:04 Sickle Cells Not Reportable 08/16/16 06:04 Target Cells Not Reportable 08/16/16 06:04 Tear Drop Cells Not Reportable 08/16/16 06:04 Ovalocytes Not Reportable 08/16/16 06:04 Helmet Cells Not Reportable 08/16/16 06:04 Razo-Foreman Bodies Not Reportable 08/16/16 06:04 [place] Rings Not Reportable 08/16/16 06:04 [place] Cells Not Reportable 08/16/16 06:04 Bite Cells Not Reportable 08/16/16 06:04 Crenated Cell Not Reportable 08/16/16 06:04 Elliptocytes Not Reportable 08/16/16 06:04 Acanthocytes (Spur) Not Reportable 08/16/16 06:04 Rouleaux Not Reportable 08/16/16 06:04 Hemoglobin C Crystals Not Reportable 08/16/16 06:04 Schistocytes Not Reportable 08/16/16 06:04 Malaria parasites Not Reportable 08/16/16 06:04 [place] Bodies Not Reportable 08/16/16 06:04 Hem Pathologist Commnt No 08/16/16 06:04 PT 13.6 Sec. (12.2-14.9) 08/08/16 12:04 INR 1.05 (0.87-1.13) 08/08/16 12:04 APTT 28.6 Sec. (24.2-36.6) 08/08/16 14:04 POC ABG pH 7.402 (7.35-7.45) 08/13/16 08:36 POC ABG pCO2 41.8 (35-45) 08/13/16 08:36 POC ABG pO2 46 (80-105) L 08/13/16 08:36 POC ABG HCO3 26.0 08/13/16 08:36 POC ABG Total CO2 27 08/13/16 08:36 POC ABG O2 Sat 82 08/13/16 08:36 POC ABG Base Excess 1 08/13/16 08:36 VBG pH 7.317 (7.320-7.420) L 08/08/16 12:04 FiO2 21 % 08/13/16 08:36 Sodium 144 mmol/L (137-145) 08/16/16 06:04 Potassium 3.9 mmol/L (3.6-5.0) 08/16/16 06:04 Chloride 103.1 mmol/L (98-107) 08/16/16 06:04 Carbon Dioxide 28 mmol/L (22-30) 08/16/16 06:04 Anion Gap 17 mmol/L 08/16/16 06:04 BUN 19 mg/dL (7-17) H 08/16/16 06:04 Creatinine 0.6 mg/dL (0.7-1.2) L 08/16/16 06:04 Estimated GFR > 60 ml/min 08/16/16 06:04 BUN/Creatinine Ratio 31.66 % 08/16/16 06:04 Glucose 138 mg/dL (65-100) H 08/16/16 06:04 POC Glucose 197 (70-105) H 08/16/16 11:35 Hemoglobin A1c 7.0 % (4-6) H 08/08/16 12:04 Lactic Acid 0.9 mmol/L (0.7-2.0) 08/09/16 14:54 Calcium 9.1 mg/dL (8.4-10.2) 08/16/16 06:04 Total Bilirubin 0.6 mg/dL (0.1-1.2) 08/09/16 05:04 AST 48 units/L (5-40) H 08/09/16 05:04 ALT 26 units/L (7-56) 08/09/16 05:04 Alkaline Phosphatase 62 units/L (35-129) 08/09/16 05:04 Total Creatine Kinase 976 units/L (30-135) H 08/08/16 12:04 CK-MB (CK-2) 4.1 ng/mL (0.0-4.0) H 08/08/16 12:04 CK-MB (CK-2) Rel Index 0.4 (0-4) 08/08/16 12:04 Troponin T < 0.010 ng/mL (0.00-0.029) 08/08/16 12:04 C-Reactive Protein 9.70 mg/dL (0.00-1.30) H 08/13/16 21:32 NT-Pro-B Natriuret Pep 25.33 pg/mL (0-900) 08/10/16 11:06 Total Protein 6.2 g/dL (6.3-8.2) L D 08/09/16 05:04 Albumin 3.6 g/dL (3.9-5) L 08/09/16 05:04 Albumin/Globulin Ratio 1.4 % 08/09/16 05:04 TSH 1.000 mlU/mL (0.270-4.200) 08/10/16 11:06 Urine Color Yellow (Yellow) 08/08/16 11:54 Urine Turbidity Clear (Clear) 08/08/16 11:54 Urine pH 5.0 (5.0-7.0) 08/08/16 11:54 Ur Specific [place] 1.025 (1.003-1.030) 08/08/16 11:54 Urine Protein 100 mg/dl mg/dL (Negative) 08/08/16 11:54 Urine Glucose (UA) Neg mg/dL (Negative) 08/08/16 11:54 Urine Ketones 20 mg/dL (Negative) 08/08/16 11:54 Urine Blood Sm (Negative) 08/08/16 11:54 Urine Nitrite Neg (Negative) 08/08/16 11:54 Urine Bilirubin Neg (Negative) 08/08/16 11:54 Urine Urobilinogen < 2.0 mg/dL (<2.0) 08/08/16 11:54 Ur Leukocyte Esterase Neg (Negative) 08/08/16 11:54 Urine WBC (Auto) 8.0 /HPF (0.0-6.0) H 08/08/16 11:54 Urine RBC (Auto) 3.0 /HPF (0.0-6.0) 08/08/16 11:54 U Epithel Cells (Auto) 1.0 /HPF (0-13.0) 08/08/16 11:54 Urine Mucus 3+ /HPF 08/08/16 11:54 Microbiology 08/08/16 12:04 Peripheral/Venous Blood Culture - Final NO GROWTH AFTER 5 DAYS 08/08/16 12:04 Peripheral/Venous Blood Culture - Final NO GROWTH AFTER 5 DAYS 08/08/16 14:34 Urine,Clean Catch Urine Culture - Final
[2016-08-16] MEDS: PERCOCET 5/325 PO PRN (16:44)
[2016-08-16] MEDS ORDERED: PROVENTIL IH PRN (19:53)
[2016-08-16] MEDS: AMBIEN PO PRN (21:43)
[2016-08-17 07:39] LABS: Hematocrit 38.2 % (30.3-42.9); Hemoglobin 12.2 gm/dl (10.1-14.3); Mean Corpuscular HGB Conc 32 % (30-34); Mean Corpuscular Hemoglobin 30 pg (28-32); Mean Corpuscular Volume 95 fl (79-97); Platelet Count 450 K/mm3 (140-440); Red Blood Count 4.02 M/mm3 (3.65-5.03); White Blood Count 15.1 K/mm3 (4.5-11.0)
[2016-08-17 07:56] LABS: Anion Gap 15 mmol/L; Blood Urea Nitrogen 18 mg/dL (7-17); Calcium 8.5 mg/dL (8.4-10.2); Carbon Dioxide 29 mmol/L (22-30); Chloride 102.6 mmol/L (98-107); Glucose 196 mg/dL (65-100); Sodium 143 mmol/L (137-145)
--- NOTE | 2016-08-17 08:08 | XRay Report ---
CHEST X-RAY, 2 VIEWS History: Followup pneumonia. Findings: The bilateral patchy nodular infiltrates in both lungs have essentially resolved since the exam 4 days ago. The lungs are generally clear. No pleural effusion or pneumothorax. Normal heart and mediastinal structures. Normal bony bony thorax. Impression: Near-complete resolution of the bilateral lung opacities.
[2016-08-17 08:24] LABS: Basophils % (Manual) 0 % (0.0-1.8); Blastocytes % (Manual) 0 %; Eosinophils % (Manual) 0 % (0.0-4.3)
[2016-08-17 08:25] LABS: Anisocytosis 1+; Diff Status Complete; Large Platelets Few
[2016-08-17 08:26] LABS: Platelet Estimate Cons
[2016-08-17] MEDS: BROVANA NEBU IH SCH ×2 (08:39→19:56)
[2016-08-17] MEDS: PULMICORT IH SCH ×2 (08:39→19:51)
[2016-08-17] MEDS: NOVOLOG SUB-Q SCH ×4 (08:43→21:55)
[2016-08-17] MEDS ORDERED: PROVENTIL IH PRN (08:46)
[2016-08-17] MEDS: COREG PO SCH ×2 (09:20→21:54)
[2016-08-17] MEDS: LEVAQUIN 750MG/150ML 750 MG/150 ML BAG IV SCH (09:21)
[2016-08-17] MEDS: LOVENOX SUB-Q SCH (09:22)
[2016-08-17] MEDS: MUCINEX ER PO SCH ×2 (09:22→21:41)
[2016-08-17] MEDS: SYNTHROID PO SCH (09:23)
[2016-08-17] MEDS: ZOCOR PO SCH (09:24)
[2016-08-17] MEDS: TRADJENTA PO SCH (09:24)
[2016-08-17] MEDS: COZAAR PO SCH (13:15)
[2016-08-17] MEDS: NORVASC PO SCH (13:15)
[2016-08-17] MEDS: DUONEB 0.5 MG-3 MG/3 ML SOLN IH SCH ×2 (13:55→19:59)
--- NOTE | 2016-08-17 14:06 | Progress Note ---
Assessment and Plan Assessment and plan: 1. Sepsis present on admission due to urinary tract infection and pneumonia with acute hypoxic respiratory failure -wbc trending down-on steroids; cotn levaquin to cover atpyical pneumonia; d/c vanc; cultures negative to date. Wean supplemental oxygen as tolerated and nebulization treatments. f/u pulmonary for further recommendations 2. Hypothyroidism-cotn medications 3. DM 2- cont meds; monitor accuchecks 4. Benign HTN - monitor BP; 5. Possible COPD-cont current breathing tx; wean IV solumedrol; cont brovana / albuterol / atrovent 6. DVT prophylaxis- lovenox; consult PT for ambulation for d/c once respiratory status improves History Interval history: f/u pneumonia, UTI Patient is seen on the bedside;sob continues to improve; daughter present; still had cough productive of white sputum Hospitalist Physical - Constitutional Vitals: Temp Pulse Resp BP Pulse Ox 98.0 F 82 18 124/68 100 08/17/16 08:40 08/17/16 13:55 08/17/16 13:55 08/17/16 13:15 08/17/16 08:42 General appearance: Present: no acute distress (40% Venturi mask), well- nourished - EENT Eyes: Present: PERRL, EOM intact. Absent: scleral icterus, conjunctival injection ENT: hearing intact, clear oral mucosa, no oropharyngeal erythema, no poor dentition - Neck Neck: Present: supple, normal ROM. Absent: enlarged thyroid, masses or JVD - Respiratory Respiratory effort: normal (on CN oxygen) Respiratory: bilateral: diminished, wheezing, negative: rales, rhonchi - Cardiovascular Rhythm: regular Heart Sounds: Present: S1 & S2. Absent: gallop - Extremities Extremities: no ischemia, pulses intact, pulses symmetrical, No edema Peripheral Pulses: within normal limits - Abdominal General gastrointestinal: soft, non-tender, non-distended, normal bowel sounds - Integumentary Integumentary: Present: clear - Psychiatric Psychiatric: appropriate mood/affect, intact judgment & insight, cooperative - Neurologic Neurologic: CNII-XII intact, moves all extremities Results - Labs CBC & Chem 7: 08/17/16 06:53 08/17/16 06:53 Labs: Laboratory Last Values WBC 15.1 K/mm3 (4.5-11.0) H 08/17/16 06:53 RBC 4.02 M/mm3 (3.65-5.03) 08/17/16 06:53 Hgb 12.2 gm/dl (10.1-14.3) 08/17/16 06:53 Hct 38.2 % (30.3-42.9) 08/17/16 06:53 MCV 95 fl (79-97) 08/17/16 06:53 MCH 30 pg (28-32) 08/17/16 06:53 MCHC 32 % (30-34) 08/17/16 06:53 RDW 14.0 % (13.2-15.2) 08/17/16 06:53 Plt Count 450 K/mm3 (140-440) H 08/17/16 06:53 Lymph % (Auto) 8.9 % (13.4-35.0) L 08/12/16 05:15 [place] % (Auto) % (0.0-7.3) 08/15/16 05:47 Eos % (Auto) % (0.0-4.3) 08/15/16 05:47 Baso % (Auto) 0.1 % (0.0-1.8) 08/12/16 05:15 Lymph # 1.5 K/mm3 (1.2-5.4) 08/12/16 05:15 [place] # K/mm3 (0.0-0.8) 08/15/16 05:47 Eos # K/mm3 (0.0-0.4) 08/15/16 05:47 Baso # K/mm3 (0.0-0.1) 08/15/16 05:47 Add Manual Diff Complete 08/17/16 06:53 Total Counted 100 08/17/16 06:53 Seg Neutrophils % % (40.0-70.0) 08/15/16 05:47 Seg Neuts % (Manual) 84.0 % (40.0-70.0) H 08/17/16 06:53 Band Neutrophils % 2.0 % 08/17/16 06:53 Lymphocytes % (Manual) 11.0 % (13.4-35.0) L 08/17/16 06:53 Reactive Lymphs % (Man) 0 % 08/17/16 06:53 Monocytes % (Manual) 3.0 % (0.0-7.3) 08/17/16 06:53 Eosinophils % (Manual) 0 % (0.0-4.3) 08/17/16 06:53 Basophils % (Manual) 0 % (0.0-1.8) 08/17/16 06:53 Metamyelocytes % 0 % 08/17/16 06:53 Myelocytes % 0 % 08/17/16 06:53 Promyelocytes % 0 % 08/17/16 06:53 Blast Cells % 0 % 08/17/16 06:53 Nucleated RBC % 1.0 % (0.0-0.9) H 08/17/16 06:53 Seg Neutrophils # K/mm3 (1.8-7.7) 08/15/16 05:47 Seg Neutrophils # Man 12.7 K/mm3 (1.8-7.7) H 08/17/16 06:53 Band Neutrophils # 0.3 K/mm3 08/17/16 06:53 Lymphocytes # (Manual) 1.7 K/mm3 (1.2-5.4) 08/17/16 06:53 Abs React Lymphs (Man) 0.0 K/mm3 08/17/16 06:53 Monocytes # (Manual) 0.5 K/mm3 (0.0-0.8) 08/17/16 06:53 Eosinophils # (Manual) 0.0 K/mm3 (0.0-0.4) 08/17/16 06:53 Basophils # (Manual) 0.0 K/mm3 (0.0-0.1) 08/17/16 06:53 Metamyelocytes # 0.0 K/mm3 08/17/16 06:53 Myelocytes # 0.0 K/mm3 08/17/16 06:53 Promyelocytes # 0.0 K/mm3 08/17/16 06:53 Blast Cells # 0.0 K/mm3 08/17/16 06:53 WBC Morphology Not Reportable 08/17/16 06:53 Hypersegmented Neuts Not Reportable 08/17/16 06:53 Hyposegmented Neuts Not Reportable 08/17/16 06:53 Hypogranular Neuts Not Reportable 08/17/16 06:53 Smudge Cells Not Reportable 08/17/16 06:53 Toxic Granulation Not Reportable 08/17/16 06:53 Toxic Vacuolation Not Reportable 08/17/16 06:53 Dohle Bodies Not Reportable 08/17/16 06:53 Pelger-Huet Anomaly Not Reportable 08/17/16 06:53 Sebastián Rods Not Reportable 08/17/16 06:53 Platelet Estimate Cons 08/17/16 06:53 Clumped Platelets Not Reportable 08/17/16 06:53 Plt Clumps, EDTA Not Reportable 08/17/16 06:53 Large Platelets Few 08/17/16 06:53 Giant Platelets Not Reportable 08/17/16 06:53 Platelet Satelliting Not Reportable 08/17/16 06:53 Plt Morphology Comment Not Reportable 08/17/16 06:53 RBC Morphology Not Reportable 08/17/16 06:53 Dimorphic RBCs Not Reportable 08/17/16 06:53 Polychromasia Not Reportable 08/17/16 06:53 Hypochromasia Not Reportable 08/17/16 06:53 Poikilocytosis Not Reportable 08/17/16 06:53 Anisocytosis 1+ 08/17/16 06:53 Microcytosis Not Reportable 08/17/16 06:53 Macrocytosis Not Reportable 08/17/16 06:53 Spherocytes Not Reportable 08/17/16 06:53 Pappenheimer Bodies Not Reportable 08/17/16 06:53 Sickle Cells Not Reportable 08/17/16 06:53 Target Cells Not Reportable 08/17/16 06:53 Tear Drop Cells Not Reportable 08/17/16 06:53 Ovalocytes Not Reportable 08/17/16 06:53 Helmet Cells Not Reportable 08/17/16 06:53 [place] Bodies Not Reportable 08/17/16 06:53 [place] Rings Not Reportable 08/17/16 06:53 Skyla Cells Not Reportable 08/17/16 06:53 Bite Cells Not Reportable 08/17/16 06:53 Crenated Cell Not Reportable 08/17/16 06:53 Elliptocytes Not Reportable 08/17/16 06:53 Acanthocytes (Spur) Not Reportable 08/17/16 06:53 Rouleaux Not Reportable 08/17/16 06:53 Hemoglobin C Crystals Not Reportable 08/17/16 06:53 Schistocytes Not Reportable 08/17/16 06:53 Malaria parasites Not Reportable 08/17/16 06:53 [place] Bodies Not Reportable 08/17/16 06:53 Hem Pathologist Commnt No 08/17/16 06:53 PT 13.6 Sec. (12.2-14.9) 08/08/16 12:04 INR 1.05 (0.87-1.13) 08/08/16 12:04 APTT 28.6 Sec. (24.2-36.6) 08/08/16 14:04 POC ABG pH 7.402 (7.35-7.45) 08/13/16 08:36 POC ABG pCO2 41.8 (35-45) 08/13/16 08:36 POC ABG pO2 46 (80-105) L 08/13/16 08:36 POC ABG HCO3 26.0 08/13/16 08:36 POC ABG Total CO2 27 08/13/16 08:36 POC ABG O2 Sat 82 08/13/16 08:36 POC ABG Base Excess 1 08/13/16 08:36 VBG pH 7.317 (7.320-7.420) L 08/08/16 12:04 FiO2 21 % 08/13/16 08:36 Sodium 143 mmol/L (137-145) 08/17/16 06:53 Potassium 4.0 mmol/L (3.6-5.0) 08/17/16 06:53 Chloride 102.6 mmol/L (98-107) 08/17/16 06:53 Carbon Dioxide 29 mmol/L (22-30) 08/17/16 06:53 Anion Gap 15 mmol/L 08/17/16 06:53 BUN 18 mg/dL (7-17) H 08/17/16 06:53 Creatinine 0.6 mg/dL (0.7-1.2) L 08/17/16 06:53 Estimated GFR > 60 ml/min 08/17/16 06:53 BUN/Creatinine Ratio 30.00 % 08/17/16 06:53 Glucose 196 mg/dL (65-100) H 08/17/16 06:53 POC Glucose 283 (70-105) H 08/17/16 12:12 Hemoglobin A1c 7.0 % (4-6) H 08/08/16 12:04 Lactic Acid 0.9 mmol/L (0.7-2.0) 08/09/16 14:54 Calcium 8.5 mg/dL (8.4-10.2) 08/17/16 06:53 Total Bilirubin 0.6 mg/dL (0.1-1.2) 08/09/16 05:04 AST 48 units/L (5-40) H 08/09/16 05:04 ALT 26 units/L (7-56) 08/09/16 05:04 Alkaline Phosphatase 62 units/L (35-129) 08/09/16 05:04 Total Creatine Kinase 976 units/L (30-135) H 08/08/16 12:04 CK-MB (CK-2) 4.1 ng/mL (0.0-4.0) H 08/08/16 12:04 CK-MB (CK-2) Rel Index 0.4 (0-4) 08/08/16 12:04 Troponin T < 0.010 ng/mL (0.00-0.029) 08/08/16 12:04 C-Reactive Protein 9.70 mg/dL (0.00-1.30) H 08/13/16 21:32 NT-Pro-B Natriuret Pep 25.33 pg/mL (0-900) 08/10/16 11:06 Total Protein 6.2 g/dL (6.3-8.2) L D 08/09/16 05:04 Albumin 3.6 g/dL (3.9-5) L 08/09/16 05:04 Albumin/Globulin Ratio 1.4 % 08/09/16 05:04 TSH 1.000 mlU/mL (0.270-4.200) 08/10/16 11:06 Urine Color Yellow (Yellow) 08/08/16 11:54 Urine Turbidity Clear (Clear) 08/08/16 11:54 Urine pH 5.0 (5.0-7.0) 08/08/16 11:54 Ur Specific [place] 1.025 (1.003-1.030) 08/08/16 11:54 Urine Protein 100 mg/dl mg/dL (Negative) 08/08/16 11:54 Urine Glucose (UA) Neg mg/dL (Negative) 08/08/16 11:54 Urine Ketones 20 mg/dL (Negative) 08/08/16 11:54 Urine Blood Sm (Negative) 08/08/16 11:54 Urine Nitrite Neg (Negative) 08/08/16 11:54 Urine Bilirubin Neg (Negative) 08/08/16 11:54 Urine Urobilinogen < 2.0 mg/dL (<2.0) 08/08/16 11:54 Ur Leukocyte Esterase Neg (Negative) 08/08/16 11:54 Urine WBC (Auto) 8.0 /HPF (0.0-6.0) H 08/08/16 11:54 Urine RBC (Auto) 3.0 /HPF (0.0-6.0) 08/08/16 11:54 U Epithel Cells (Auto) 1.0 /HPF (0-13.0) 08/08/16 11:54 Urine Mucus 3+ /HPF 08/08/16 11:54 - Imaging and Cardiology Chest x-ray: report reviewed (near complete resolution of opacification)
--- NOTE | 2016-08-17 18:22 | Progress Note ---
Assessment and Plan This 61 year old female admitted with a complaint of shortness of breath, cough, wheezing and pleuritic chest pain. Patient coughing up white sputum. Denies hemoptysis. Patient denies fever and chills. Patient has multiple medical problems COPD,Hypertension,diabetes,Hypothyroidism and Hyperlipidemia..Patient has history of smoking 1/2 a pack a day for 19 years. 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 Not . Has 2 children. Patient resting on 3 litres Patient says breathing better.No acute respiratory distress. - Patient Problems (1) Hypoxia Current Visit: Yes Status: Acute Plan to address problem: Patients O2 satuaration 96% on 3 litres. Patients PO2 on room air 46. Patient is candidate for home O2. Recommend Home O2 3 litres Via nasal canula. (2) Pneumonia Current Visit: Yes Status: Acute Qualifiers: Pneumonia type: due to unspecified organism Aspiration pneumonia type: A Laterality: bilateral Lung location: unspecified part of lung Qualified Code (s): J18.9 - Pneumonia, unspecified organism Plan to address problem: Patient is on I/V Levaquineand . (3) UTI (urinary tract infection) Current Visit: Yes Status: Acute Qualifiers: Urinary tract infection type: acute cystitis Hematuria presence: H Indwelling urinary catheter type: I Encounter type: E Plan to address problem: Patient is on I/V Levaquine . (4) Hypothyroidism (acquired) Current Visit: Yes Status: Chronic Plan to address problem: Patient is on Levothyroxine. Management as per primary care. (5) T2DM (type 2 diabetes mellitus) Current Visit: Yes Status: Chronic Qualifiers: Diabetes mellitus complication status: without complication Diabetes mellitus complication detail: D Diabetic retinopathy severity: D Proliferative retinopathy type: P Diabetes mellitus macular edema: D Diabetes mellitus computer terminal operator insulin use: without computer terminal operator use Laterality: L Chronic kidney disease stage: C Qualified Code(s): E11.9 - Type 2 diabetes mellitus without complications Plan to address problem: Management as per [place] [facility]. (6) Hypertension Current Visit: No Status: Chronic Qualifiers: Hypertension type: essential hypertension Qualified Code(s): I10 - Essential (primary) hypertension Plan to address problem: Management as per primary care. (7) COPD exacerbation Current Visit: Yes Status: Acute Plan to address problem: Possible COPD exagerbation Continue O2 supplementation. Tapering solumedral to 40 mg I/V q 12 hours. Brovanna aerosol treatments q 12 hours. Albuterol/atrovent aerosol treatments q 6 hours prn for shortness of breath Continue Lovenox Subjective Date of service: 08/17/16 Principal diagnosis: Acute Hypoxemic Resp Failure Interval history: Patient resting on 3 litres O2.. Patient says breathing better.No acute respiratory distress. Objective Vital Signs - 12hr 08/17/16 08/17/16 08/17/16 08:37 08:39 08:40 Temperature 98.0 F Pulse Rate Pulse Rate [ 78 Anterior Bilateral Throughout] Pulse Rate [ 62 Right Radial] Respiratory 20 Rate Respiratory 20 Rate [Anterior Bilateral Throughout] Blood Pressure Blood Pressure 134/85 [Left Arm] O2 Sat by Pulse 100 98 Oximetry 08/17/16 08/17/16 08/17/16 08:42 08:52 09:20 Temperature Pulse Rate 70 Pulse Rate [ 70 Anterior Bilateral Throughout] Pulse Rate [ Right Radial] Respiratory Rate Respiratory 18 Rate [Anterior Bilateral Throughout] Blood Pressure 103/68 Blood Pressure [Left Arm] O2 Sat by Pulse 100 Oximetry 08/17/16 08/17/16 08/17/16 13:15 13:55 14:04 Temperature Pulse Rate 64 Pulse Rate [ 82 75 Anterior Bilateral Throughout] Pulse Rate [ Right Radial] Respiratory Rate Respiratory 18 16 Rate [Anterior Bilateral Throughout] Blood Pressure 124/68 Blood Pressure [Left Arm] O2 Sat by Pulse Oximetry 08/17/16 16:12 Temperature 98.0 F Pulse Rate Pulse Rate [ Anterior Bilateral Throughout] Pulse Rate [ 68 Right Radial] Respiratory 20 Rate Respiratory Rate [Anterior Bilateral Throughout] Blood Pressure Blood Pressure 112/61 [Left Arm] O2 Sat by Pulse Oximetry Constitutional: alert, appears uncomfortable Eyes: non-icteric ENT: oropharynx moist Neck: supple, no JVD Effort: mildly labored Ascultation: Bilateral: wheezes (slight), rales (basilar predominant), rhonchi ( Diffuse bilateral ronchi.) Cardiovascular: regular rate and rhythm Gastrointestinal: normoactive bowel sounds, soft, non-tender, non-distended Integumentary: normal Extremities: no cyanosis, no edema, pulses normal, no ischemia or petechiae Neurologic: normal mental status, non-focal exam, pupils equal and round, CN II- XII normal Psychiatric: mood appropriate, affect normal CBC and BMP: 08/17/16 06:53 08/17/16 06:53 ABG, PT/INR, D-dimer: ABG POC ABG pH 7.402 (7.35-7.45) 08/13/16 08:36 POC ABG pCO2 41.8 (35-45) 08/13/16 08:36 POC ABG pO2 46 (80-105) L 08/13/16 08:36 POC ABG HCO3 26.0 08/13/16 08:36 POC ABG Total CO2 27 08/13/16 08:36 POC ABG O2 Sat 82 08/13/16 08:36 PT/INR, D-dimer PT 13.6 Sec. (12.2-14.9) 08/08/16 12:04 INR 1.05 (0.87-1.13) 08/08/16 12:04 Abnormal lab findings: Abnormal Labs 08/08/16 08/09/16 08/09/16 22:56 05:04 05:04 WBC Hgb 14.4 H Hct 43.1 H D Plt Count Lymph % (Auto) [place] % (Auto) 12.9 H [place] # 1.3 H Seg Neutrophils % Seg Neuts % (Manual) Lymphocytes % (Manual) Nucleated RBC % Seg Neutrophils # Seg Neutrophils # Man Lymphocytes # (Manual) POC ABG pCO2 POC ABG pO2 Potassium Carbon Dioxide 21 L BUN Creatinine Glucose 146 H POC Glucose 108 H Calcium AST 48 H C-Reactive Protein Total Protein 6.2 L D Albumin 3.6 L 08/09/16 08/09/16 08/09/16 07:40 11:29 16:52 WBC Hgb Hct Plt Count Lymph % (Auto) [place] % (Auto) [place] # Seg Neutrophils % Seg Neuts % (Manual) Lymphocytes % (Manual) Nucleated RBC % Seg Neutrophils # Seg Neutrophils # Man Lymphocytes # (Manual) POC ABG pCO2 POC ABG pO2 Potassium Carbon Dioxide BUN Creatinine Glucose POC Glucose 168 H 138 H 140 H Calcium AST C-Reactive Protein Total Protein Albumin 08/09/16 08/09/16 08/10/16 17:51 22:07 04:39 WBC 11.5 H Hgb Hct Plt Count Lymph % (Auto) [place] % (Auto) 8.1 H [place] # 0.9 H Seg Neutrophils % 75.6 H Seg Neuts % (Manual) Lymphocytes % (Manual) Nucleated RBC % Seg Neutrophils # 8.7 H Seg Neutrophils # Man Lymphocytes # (Manual) POC ABG pCO2 32.6 L POC ABG pO2 56 L Potassium Carbon Dioxide BUN Creatinine Glucose POC Glucose 166 H Calcium AST C-Reactive Protein Total Protein Albumin 08/10/16 08/10/16 08/10/16 04:39 08:20 12:23 WBC Hgb Hct Plt Count Lymph % (Auto) [place] % (Auto) [place] # Seg Neutrophils % Seg Neuts % (Manual) Lymphocytes % (Manual) Nucleated RBC % Seg Neutrophils # Seg Neutrophils # Man Lymphocytes # (Manual) POC ABG pCO2 POC ABG pO2 Potassium 3.5 L Carbon Dioxide BUN Creatinine 1.5 H D Glucose 164 H POC Glucose 112 H 124 H Calcium 8.1 L AST C-Reactive Protein Total Protein Albumin 08/10/16 08/10/16 08/10/16 16:23 20:49 23:25 WBC Hgb Hct Plt Count Lymph % (Auto) [place] % (Auto) [place] # Seg Neutrophils % Seg Neuts % (Manual) Lymphocytes % (Manual) Nucleated RBC % Seg Neutrophils # Seg Neutrophils # Man Lymphocytes # (Manual) POC ABG pCO2 POC ABG pO2 Potassium Carbon Dioxide BUN Creatinine Glucose POC Glucose 130 H 123 H 130 H Calcium AST C-Reactive Protein Total Protein Albumin 08/11/16 08/11/16 08/11/16 06:27 06:45 12:35 WBC 12.2 H Hgb Hct Plt Count Lymph % (Auto) [place] % (Auto) 9.2 H [place] # 1.1 H Seg Neutrophils % 75.7 H Seg Neuts % (Manual) Lymphocytes % (Manual) Nucleated RBC % Seg Neutrophils # 9.2 H Seg Neutrophils # Man Lymphocytes # (Manual) POC ABG pCO2 POC ABG pO2 Potassium Carbon Dioxide BUN Creatinine Glucose POC Glucose 132 H 170 H Calcium AST C-Reactive Protein Total Protein Albumin 08/11/16 08/11/16 08/12/16 16:14 21:55 05:15 WBC 16.7 H Hgb Hct Plt Count Lymph % (Auto) 8.9 L [place] % (Auto) [place] # 1.0 H Seg Neutrophils % 84.7 H Seg Neuts % (Manual) Lymphocytes % (Manual) Nucleated RBC % Seg Neutrophils # 14.1 H Seg Neutrophils # Man Lymphocytes # (Manual) POC ABG pCO2 POC ABG pO2 Potassium Carbon Dioxide BUN Creatinine Glucose POC Glucose 248 H 196 H Calcium AST C-Reactive Protein Total Protein Albumin 08/12/16 08/12/16 08/12/16 06:32 12:26 16:32 WBC Hgb Hct Plt Count Lymph % (Auto) [place] % (Auto) [place] # Seg Neutrophils % Seg Neuts % (Manual) Lymphocytes % (Manual) Nucleated RBC % Seg Neutrophils # Seg Neutrophils # Man Lymphocytes # (Manual) POC ABG pCO2 POC ABG pO2 Potassium Carbon Dioxide BUN Creatinine Glucose POC Glucose 177 H 255 H 164 H Calcium AST C-Reactive Protein Total Protein Albumin 08/12/16 08/13/16 08/13/16 21:44 06:26 07:08 WBC 20.3 H Hgb Hct Plt Count Lymph % (Auto) [place] % (Auto) [place] # Seg Neutrophils % Seg Neuts % (Manual) 82.0 H Lymphocytes % (Manual) Nucleated RBC % Seg Neutrophils # Seg Neutrophils # Man 16.6 H Lymphocytes # (Manual) POC ABG pCO2 POC ABG pO2 Potassium Carbon Dioxide BUN Creatinine Glucose POC Glucose 234 H 144 H Calcium AST C-Reactive Protein Total Protein Albumin 08/13/16 08/13/16 08/13/16 08:36 12:08 16:46 WBC Hgb Hct Plt Count Lymph % (Auto) [place] % (Auto) [place] # Seg Neutrophils % Seg Neuts % (Manual) Lymphocytes % (Manual) Nucleated RBC % Seg Neutrophils # Seg Neutrophils # Man Lymphocytes # (Manual) POC ABG pCO2 POC ABG pO2 46 L Potassium Carbon Dioxide BUN Creatinine Glucose POC Glucose 216 H 213 H Calcium AST C-Reactive Protein Total Protein Albumin 08/13/16 08/13/16 08/14/16 21:23 21:32 05:49 WBC 14.6 H Hgb Hct Plt Count Lymph % (Auto) [place] % (Auto) [place] # Seg Neutrophils % Seg Neuts % (Manual) 82.0 H Lymphocytes % (Manual) 7.0 L Nucleated RBC % Seg Neutrophils # Seg Neutrophils # Man 12.0 H Lymphocytes # (Manual) 1.0 L POC ABG pCO2 POC ABG pO2 Potassium Carbon Dioxide BUN Creatinine Glucose POC Glucose 246 H Calcium AST C-Reactive Protein 9.70 H Total Protein Albumin 08/14/16 08/14/16 08/14/16 05:49 06:28 11:51 WBC Hgb Hct Plt Count Lymph % (Auto) [place] % (Auto) [place] # Seg Neutrophils % Seg Neuts % (Manual) Lymphocytes % (Manual) Nucleated RBC % Seg Neutrophils # Seg Neutrophils # Man Lymphocytes # (Manual) POC ABG pCO2 POC ABG pO2 Potassium 3.4 L Carbon Dioxide BUN 18 H Creatinine Glucose 138 H POC Glucose 122 H 187 H Calcium AST C-Reactive Protein Total Protein Albumin 08/14/16 08/14/16 08/15/16 16:51 21:43 05:47 WBC 14.3 H Hgb Hct Plt Count Lymph % (Auto) [place] % (Auto) [place] # Seg Neutrophils % Seg Neuts % (Manual) 78.0 H Lymphocytes % (Manual) 12.0 L Nucleated RBC % Seg Neutrophils # Seg Neutrophils # Man 11.2 H Lymphocytes # (Manual) POC ABG pCO2 POC ABG pO2 Potassium Carbon Dioxide BUN Creatinine Glucose POC Glucose 142 H 292 H Calcium AST C-Reactive Protein Total Protein Albumin 08/15/16 08/15/16 08/15/16 06:38 11:32 16:25 WBC Hgb Hct Plt Count Lymph % (Auto) [place] % (Auto) [place] # Seg Neutrophils % Seg Neuts % (Manual) Lymphocytes % (Manual) Nucleated RBC % Seg Neutrophils # Seg Neutrophils # Man Lymphocytes # (Manual) POC ABG pCO2 POC ABG pO2 Potassium Carbon Dioxide BUN Creatinine Glucose POC Glucose 117 H 318 H 192 H Calcium AST C-Reactive Protein Total Protein Albumin 08/15/16 08/16/16 08/16/16 21:17 06:04 06:04 WBC 16.3 H Hgb Hct Plt Count Lymph % (Auto) [place] % (Auto) [place] # Seg Neutrophils % Seg Neuts % (Manual) Lymphocytes % (Manual) Nucleated RBC % 1.0 H Seg Neutrophils # Seg Neutrophils # Man 10.9 H Lymphocytes # (Manual) POC ABG pCO2 POC ABG pO2 Potassium Carbon Dioxide BUN 19 H Creatinine 0.6 L Glucose 138 H POC Glucose 234 H Calcium AST C-Reactive Protein Total Protein Albumin 08/16/16 08/16/16 08/16/16 06:22 11:35 16:20 WBC Hgb Hct Plt Count Lymph % (Auto) [place] % (Auto) [place] # Seg Neutrophils % Seg Neuts % (Manual) Lymphocytes % (Manual) Nucleated RBC % Seg Neutrophils # Seg Neutrophils # Man Lymphocytes # (Manual) POC ABG pCO2 POC ABG pO2 Potassium Carbon Dioxide BUN Creatinine Glucose POC Glucose 130 H 197 H 225 H Calcium AST C-Reactive Protein Total Protein Albumin 08/16/16 08/17/16 08/17/16 21:28 05:05 06:53 WBC 15.1 H Hgb Hct Plt Count 450 H Lymph % (Auto) [place] % (Auto) [place] # Seg Neutrophils % Seg Neuts % (Manual) 84.0 H Lymphocytes % (Manual) 11.0 L Nucleated RBC % 1.0 H Seg Neutrophils # Seg Neutrophils # Man 12.7 H Lymphocytes # (Manual) POC ABG pCO2 POC ABG pO2 Potassium Carbon Dioxide BUN Creatinine Glucose POC Glucose 163 H 266 H Calcium AST C-Reactive Protein Total Protein Albumin 08/17/16 08/17/16 08/17/16 06:53 12:12 16:48 WBC Hgb Hct Plt Count Lymph % (Auto) [place] % (Auto) [place] # Seg Neutrophils % Seg Neuts % (Manual) Lymphocytes % (Manual) Nucleated RBC % Seg Neutrophils # Seg Neutrophils # Man Lymphocytes # (Manual) POC ABG pCO2 POC ABG pO2 Potassium Carbon Dioxide BUN 18 H Creatinine 0.6 L Glucose 196 H POC Glucose 283 H 234 H Calcium AST C-Reactive Protein Total Protein Albumin Chest x-ray: report reviewed (Near complete opacification of bilateral pulmonary infiltrates.), image reviewed
[2016-08-17] MEDS: PERCOCET 5/325 PO PRN (21:54)
[2016-08-18] MEDS: DUONEB 0.5 MG-3 MG/3 ML SOLN IH SCH ×4 (01:52→20:03)
[2016-08-18 05:50] LABS: Hematocrit 35.6 % (30.3-42.9); Mean Corpuscular HGB Conc 34 % (30-34); Mean Corpuscular Hemoglobin 32 pg (28-32); Mean Corpuscular Volume 94 fl (79-97); Platelet Count 433 K/mm3 (140-440); Red Cell Distribution Width 14.1 % (13.2-15.2); White Blood Count 16.2 K/mm3 (4.5-11.0)
[2016-08-18 06:13] LABS: Anion Gap 15 mmol/L; Blood Urea Nitrogen 16 mg/dL (7-17); Calcium 8.2 mg/dL (8.4-10.2); Carbon Dioxide 27 mmol/L (22-30); Chloride 103.5 mmol/L (98-107); Glucose 176 mg/dL (65-100); Potassium 4.2 mmol/L (3.6-5.0); Sodium 141 mmol/L (137-145)
[2016-08-18 07:25] LABS: Basophils % (Manual) 0 % (0.0-1.8); Blastocytes % (Manual) 0 %; Eosinophils % (Manual) 0 % (0.0-4.3)
[2016-08-18 07:27] LABS: Anisocytosis Few; Diff Status Complete; Platelet Estimate Appears Increased
[2016-08-18] MEDS: PULMICORT IH SCH ×2 (08:23→20:01)
[2016-08-18] MEDS: BROVANA NEBU IH SCH ×2 (08:23→20:02)
[2016-08-18] MEDS: LEVAQUIN 750MG/150ML 750 MG/150 ML BAG IV SCH (09:21)
[2016-08-18] MEDS: COZAAR PO SCH (09:22)
[2016-08-18] MEDS: PERCOCET 5/325 PO PRN ×2 (09:22→15:52)
[2016-08-18] MEDS: COREG PO SCH ×2 (09:23→23:30)
[2016-08-18] MEDS: ZOCOR PO SCH (09:23)
[2016-08-18] MEDS: NORVASC PO SCH (09:23)
[2016-08-18] MEDS: TRADJENTA PO SCH (09:23)
[2016-08-18] MEDS: SYNTHROID PO SCH (09:23)
[2016-08-18] MEDS: LOVENOX SUB-Q SCH (09:23)
[2016-08-18] MEDS: NOVOLOG SUB-Q SCH ×4 (09:24→23:31)
[2016-08-18] MEDS: MUCINEX ER PO SCH ×2 (09:24→23:31)
--- NOTE | 2016-08-18 12:36 | Progress Note ---
Assessment and Plan Assessment and plan: 1. Sepsis. Patient will be placed on the sepsis pathway. Blood cultures thus far negative and lactic acid level normal. Continue to follow. 2. Acute hypoxemic respiratory failure. O2 saturation 96% on 3 L. PO2 on room air is 46. Patient is candidate for home O2. Case management to arrange for home O2 3 L via nasal cannula. 3. Bilateral pneumonia/pneumonitis. Continue IV antibiotics. Check echocardiogram. 4. Acute renal failure. Resolved. 5. Hypothyroidism. Continue current medications. 6. Hypercholesterolemia. Continue statins. 7. Degenerative disc disease. Pain control and Supportive care 8. UTI. Continue IV Levaquin. History Interval history: 61-year-old female presents to divert department with complaints of fever, chills, body aches 4 days prior to admission. Patient with diagnosis of sepsis , pneumonia/pneumonitis. Patient still with some cough of clear sputum and dyspnea with exertion. No chest pain. Hospitalist Physical - Constitutional Vitals: Temp Pulse Resp BP Pulse Ox 98.1 F 62 19 134/69 97 08/18/16 07:50 08/18/16 09:23 08/18/16 08:15 08/18/16 09:23 08/18/16 10:00 General appearance: Present: no acute distress (40% Venturi mask), well- nourished - EENT Eyes: Present: PERRL, EOM intact ENT: hearing intact, clear oral mucosa, dentition normal - Neck Neck: Present: supple, normal ROM - Respiratory Respiratory effort: normal Respiratory: bilateral: CTA - Cardiovascular Rhythm: regular Heart Sounds: Present: S1 & S2. Absent: gallop, rub - Extremities Extremities: no ischemia, No edema, Full ROM - Abdominal General gastrointestinal: soft, non-tender, non-distended, normal bowel sounds - Integumentary Integumentary: Present: clear, warm, dry - Neurologic Neurologic: CNII-XII intact, moves all extremities Results - Labs CBC & Chem 7: 08/18/16 05:32 08/18/16 05:32 Labs: Laboratory Last Values WBC 16.2 K/mm3 (4.5-11.0) H 08/18/16 05:32 RBC 3.80 M/mm3 (3.65-5.03) 08/18/16 05:32 Hgb 12.0 gm/dl (10.1-14.3) 08/18/16 05:32 Hct 35.6 % (30.3-42.9) 08/18/16 05:32 MCV 94 fl (79-97) 08/18/16 05:32 MCH 32 pg (28-32) 08/18/16 05:32 MCHC 34 % (30-34) 08/18/16 05:32 RDW 14.1 % (13.2-15.2) 08/18/16 05:32 Plt Count 433 K/mm3 (140-440) 08/18/16 05:32 Lymph % (Auto) 8.9 % (13.4-35.0) L 08/12/16 05:15 [place] % (Auto) % (0.0-7.3) 08/15/16 05:47 Eos % (Auto) % (0.0-4.3) 08/15/16 05:47 Baso % (Auto) 0.1 % (0.0-1.8) 08/12/16 05:15 Lymph # 1.5 K/mm3 (1.2-5.4) 08/12/16 05:15 [place] # K/mm3 (0.0-0.8) 08/15/16 05:47 Eos # K/mm3 (0.0-0.4) 08/15/16 05:47 Baso # K/mm3 (0.0-0.1) 08/15/16 05:47 Add Manual Diff Complete 08/18/16 05:32 Total Counted 100 08/18/16 05:32 Seg Neutrophils % % (40.0-70.0) 08/15/16 05:47 Seg Neuts % (Manual) 80.0 % (40.0-70.0) H 08/18/16 05:32 Band Neutrophils % 1.0 % 08/18/16 05:32 Lymphocytes % (Manual) 15.0 % (13.4-35.0) 08/18/16 05:32 Reactive Lymphs % (Man) 0 % 08/18/16 05:32 Monocytes % (Manual) 4.0 % (0.0-7.3) 08/18/16 05:32 Eosinophils % (Manual) 0 % (0.0-4.3) 08/18/16 05:32 Basophils % (Manual) 0 % (0.0-1.8) 08/18/16 05:32 Metamyelocytes % 0 % 08/18/16 05:32 Myelocytes % 0 % 08/18/16 05:32 Promyelocytes % 0 % 08/18/16 05:32 Blast Cells % 0 % 08/18/16 05:32 Nucleated RBC % Not Reportable 08/18/16 05:32 Seg Neutrophils # K/mm3 (1.8-7.7) 08/15/16 05:47 Seg Neutrophils # Man 13.0 K/mm3 (1.8-7.7) H 08/18/16 05:32 Band Neutrophils # 0.2 K/mm3 08/18/16 05:32 Lymphocytes # (Manual) 2.4 K/mm3 (1.2-5.4) 08/18/16 05:32 Abs React Lymphs (Man) 0.0 K/mm3 08/18/16 05:32 Monocytes # (Manual) 0.6 K/mm3 (0.0-0.8) 08/18/16 05:32 Eosinophils # (Manual) 0.0 K/mm3 (0.0-0.4) 08/18/16 05:32 Basophils # (Manual) 0.0 K/mm3 (0.0-0.1) 08/18/16 05:32 Metamyelocytes # 0.0 K/mm3 08/18/16 05:32 Myelocytes # 0.0 K/mm3 08/18/16 05:32 Promyelocytes # 0.0 K/mm3 08/18/16 05:32 Blast Cells # 0.0 K/mm3 08/18/16 05:32 WBC Morphology Not Reportable 08/18/16 05:32 Hypersegmented Neuts Not Reportable 08/18/16 05:32 Hyposegmented Neuts Not Reportable 08/18/16 05:32 Hypogranular Neuts Not Reportable 08/18/16 05:32 Smudge Cells Not Reportable 08/18/16 05:32 Toxic Granulation Not Reportable 08/18/16 05:32 Toxic Vacuolation Not Reportable 08/18/16 05:32 Dohle Bodies Not Reportable 08/18/16 05:32 Pelger-Huet Anomaly Not Reportable 08/18/16 05:32 Sebastián Rods Not Reportable 08/18/16 05:32 Platelet Estimate Appears increased 08/18/16 05:32 Clumped Platelets Not Reportable 08/18/16 05:32 Plt Clumps, EDTA Not Reportable 08/18/16 05:32 Large Platelets Not Reportable 08/18/16 05:32 Giant Platelets Not Reportable 08/18/16 05:32 Platelet Satelliting Not Reportable 08/18/16 05:32 Plt Morphology Comment Not Reportable 08/18/16 05:32 RBC Morphology Not Reportable 08/18/16 05:32 Dimorphic RBCs Not Reportable 08/18/16 05:32 Polychromasia Not Reportable 08/18/16 05:32 Hypochromasia Not Reportable 08/18/16 05:32 Poikilocytosis Not Reportable 08/18/16 05:32 Anisocytosis Few 08/18/16 05:32 Microcytosis Not Reportable 08/18/16 05:32 Macrocytosis Not Reportable 08/18/16 05:32 Spherocytes Not Reportable 08/18/16 05:32 Pappenheimer Bodies Not Reportable 08/18/16 05:32 Sickle Cells Not Reportable 08/18/16 05:32 Target Cells Not Reportable 08/18/16 05:32 Tear Drop Cells Not Reportable 08/18/16 05:32 Ovalocytes Not Reportable 08/18/16 05:32 Helmet Cells Not Reportable 08/18/16 05:32 [place] Bodies Not Reportable 08/18/16 05:32 [place] Rings Not Reportable 08/18/16 05:32 Skyla Cells Not Reportable 08/18/16 05:32 Bite Cells Not Reportable 08/18/16 05:32 Crenated Cell Not Reportable 08/18/16 05:32 Elliptocytes Not Reportable 08/18/16 05:32 Acanthocytes (Spur) Not Reportable 08/18/16 05:32 Rouleaux Not Reportable 08/18/16 05:32 Hemoglobin C Crystals Not Reportable 08/18/16 05:32 Schistocytes Not Reportable 08/18/16 05:32 Malaria parasites Not Reportable 08/18/16 05:32 [place] Bodies Not Reportable 08/18/16 05:32 Hem Pathologist Commnt No 08/18/16 05:32 PT 13.6 Sec. (12.2-14.9) 08/08/16 12:04 INR 1.05 (0.87-1.13) 08/08/16 12:04 APTT 28.6 Sec. (24.2-36.6) 08/08/16 14:04 POC ABG pH 7.402 (7.35-7.45) 08/13/16 08:36 POC ABG pCO2 41.8 (35-45) 08/13/16 08:36 POC ABG pO2 46 (80-105) L 08/13/16 08:36 POC ABG HCO3 26.0 08/13/16 08:36 POC ABG Total CO2 27 08/13/16 08:36 POC ABG O2 Sat 82 08/13/16 08:36 POC ABG Base Excess 1 08/13/16 08:36 VBG pH 7.317 (7.320-7.420) L 08/08/16 12:04 FiO2 21 % 08/13/16 08:36 Sodium 141 mmol/L (137-145) 08/18/16 05:32 Potassium 4.2 mmol/L (3.6-5.0) 08/18/16 05:32 Chloride 103.5 mmol/L (98-107) 08/18/16 05:32 Carbon Dioxide 27 mmol/L (22-30) 08/18/16 05:32 Anion Gap 15 mmol/L 08/18/16 05:32 BUN 16 mg/dL (7-17) 08/18/16 05:32 Creatinine 0.5 mg/dL (0.7-1.2) L 08/18/16 05:32 Estimated GFR > 60 ml/min 08/18/16 05:32 BUN/Creatinine Ratio 32.00 % 08/18/16 05:32 Glucose 176 mg/dL (65-100) H 08/18/16 05:32 POC Glucose 315 (70-105) H 08/18/16 12:02 Hemoglobin A1c 7.0 % (4-6) H 08/08/16 12:04 Lactic Acid 0.9 mmol/L (0.7-2.0) 08/09/16 14:54 Calcium 8.2 mg/dL (8.4-10.2) L 08/18/16 05:32 Total Bilirubin 0.6 mg/dL (0.1-1.2) 08/09/16 05:04 AST 48 units/L (5-40) H 08/09/16 05:04 ALT 26 units/L (7-56) 08/09/16 05:04 Alkaline Phosphatase 62 units/L (35-129) 08/09/16 05:04 Total Creatine Kinase 976 units/L (30-135) H 08/08/16 12:04 CK-MB (CK-2) 4.1 ng/mL (0.0-4.0) H 08/08/16 12:04 CK-MB (CK-2) Rel Index 0.4 (0-4) 08/08/16 12:04 Troponin T < 0.010 ng/mL (0.00-0.029) 08/08/16 12:04 C-Reactive Protein 9.70 mg/dL (0.00-1.30) H 08/13/16 21:32 NT-Pro-B Natriuret Pep 25.33 pg/mL (0-900) 08/10/16 11:06 Total Protein 6.2 g/dL (6.3-8.2) L D 08/09/16 05:04 Albumin 3.6 g/dL (3.9-5) L 08/09/16 05:04 Albumin/Globulin Ratio 1.4 % 08/09/16 05:04 TSH 1.000 mlU/mL (0.270-4.200) 08/10/16 11:06 Urine Color Yellow (Yellow) 08/08/16 11:54 Urine Turbidity Clear (Clear) 08/08/16 11:54 Urine pH 5.0 (5.0-7.0) 08/08/16 11:54 Ur Specific [place] 1.025 (1.003-1.030) 08/08/16 11:54 Urine Protein 100 mg/dl mg/dL (Negative) 08/08/16 11:54 Urine Glucose (UA) Neg mg/dL (Negative) 08/08/16 11:54 Urine Ketones 20 mg/dL (Negative) 08/08/16 11:54 Urine Blood Sm (Negative) 08/08/16 11:54 Urine Nitrite Neg (Negative) 08/08/16 11:54 Urine Bilirubin Neg (Negative) 08/08/16 11:54 Urine Urobilinogen < 2.0 mg/dL (<2.0) 08/08/16 11:54 Ur Leukocyte Esterase Neg (Negative) 08/08/16 11:54 Urine WBC (Auto) 8.0 /HPF (0.0-6.0) H 08/08/16 11:54 Urine RBC (Auto) 3.0 /HPF (0.0-6.0) 08/08/16 11:54 U Epithel Cells (Auto) 1.0 /HPF (0-13.0) 08/08/16 11:54 Urine Mucus 3+ /HPF 08/08/16 11:54 MAGED Screen Negative (Negative) 08/13/16 21:32
--- NOTE | 2016-08-18 21:09 | Progress Note ---
Assessment and Plan This 61 year old female admitted with a complaint of shortness of breath, cough, wheezing and pleuritic chest pain. Patient coughing up white sputum. Denies hemoptysis. Patient denies fever and chills. Patient has multiple medical problems COPD,Hypertension,diabetes,Hypothyroidism and Hyperlipidemia..Patient has history of smoking 1/2 a pack a day for 19 years. 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 Not . Has 2 children. Patient resting on 3 litres O2 satuaration 99%. Patient says breathing better.No acute respiratory distress. - Patient Problems (1) Hypoxia Current Visit: Yes Status: Acute Plan to address problem: Patients O2 satuaration 99% on 3 litres. Patients PO2 on room air 46. Patient is candidate for home O2. Recommend Home O2 3 litres Via nasal canula. (2) Pneumonia Current Visit: Yes Status: Acute Qualifiers: Pneumonia type: due to unspecified organism Aspiration pneumonia type: A Laterality: bilateral Lung location: unspecified part of lung Qualified Code (s): J18.9 - Pneumonia, unspecified organism Plan to address problem: Patient is on I/V Levaquineand . (3) UTI (urinary tract infection) Current Visit: Yes Status: Acute Qualifiers: Urinary tract infection type: acute cystitis Hematuria presence: H Indwelling urinary catheter type: I Encounter type: E Plan to address problem: Patient is on I/V Levaquine . (4) Hypothyroidism (acquired) Current Visit: Yes Status: Chronic Plan to address problem: Patient is on Levothyroxine. Management as per primary care. (5) T2DM (type 2 diabetes mellitus) Current Visit: Yes Status: Chronic Qualifiers: Diabetes mellitus complication status: without complication Diabetes mellitus complication detail: D Diabetic retinopathy severity: D Proliferative retinopathy type: P Diabetes mellitus macular edema: D Diabetes mellitus termite control servicer insulin use: without termite control servicer use Laterality: L Chronic kidney disease stage: C Qualified Code(s): E11.9 - Type 2 diabetes mellitus without complications Plan to address problem: Management as per [facility] care. (6) Hypertension Current Visit: No Status: Chronic Qualifiers: Hypertension type: essential hypertension Qualified Code(s): I10 - Essential (primary) hypertension Plan to address problem: Management as per primary care. (7) COPD exacerbation Current Visit: Yes Status: Acute Plan to address problem: Possible COPD exagerbation Continue O2 supplementation. Tapering solumedral to 40 mg I/V q 12 hours. Brovanna aerosol treatments q 12 hours. Albuterol/atrovent aerosol treatments q 6 hours prn for shortness of breath Continue Lovenox Subjective Date of service: 08/18/16 Principal diagnosis: Acute Hypoxemic Resp Failure Interval history: Patient resting on 3 litres O2. O2 satuaration 99%. Patient says breathing better.No acute respiratory distress. Objective Vital Signs - 12hr 08/18/16 08/18/16 08/18/16 09:22 09:23 10:00 Temperature Pulse Rate 62 Pulse Rate [ Anterior Bilateral Throughout] Pulse Rate [ Bilateral] Pulse Rate [ Right Radial] Respiratory Rate Respiratory Rate [Anterior Bilateral Throughout] Respiratory Rate [Bilateral ] Blood Pressure 134/69 134/69 Blood Pressure [Left Arm] O2 Sat by Pulse 97 Oximetry 08/18/16 08/18/16 08/18/16 14:10 14:21 15:05 Temperature 98.2 F Pulse Rate Pulse Rate [ 62 63 Anterior Bilateral Throughout] Pulse Rate [ Bilateral] Pulse Rate [ 71 Right Radial] Respiratory 20 Rate Respiratory 18 18 Rate [Anterior Bilateral Throughout] Respiratory Rate [Bilateral ] Blood Pressure Blood Pressure 114/57 [Left Arm] O2 Sat by Pulse Oximetry 08/18/16 08/18/16 08/18/16 17:40 20:00 20:05 Temperature 98.1 F Pulse Rate Pulse Rate [ 71 Anterior Bilateral Throughout] Pulse Rate [ 78 Bilateral] Pulse Rate [ 72 Right Radial] Respiratory 18 Rate Respiratory 16 Rate [Anterior Bilateral Throughout] Respiratory 20 Rate [Bilateral ] Blood Pressure Blood Pressure 113/67 [Left Arm] O2 Sat by Pulse 99 Oximetry Constitutional: no acute distress, alert, appears uncomfortable Eyes: non-icteric ENT: oropharynx moist Neck: supple, no JVD Effort: mildly labored Ascultation: Bilateral: rhonchi (Occassional ronchi) Cardiovascular: regular rate and rhythm Gastrointestinal: normoactive bowel sounds, soft, non-tender, non-distended Integumentary: normal Extremities: no cyanosis, no edema, pulses normal, no ischemia or petechiae Neurologic: normal mental status, non-focal exam, pupils equal and round, CN II- XII normal Psychiatric: mood appropriate, affect normal CBC and BMP: 08/18/16 05:32 08/18/16 05:32 ABG, PT/INR, D-dimer: ABG POC ABG pH 7.402 (7.35-7.45) 08/13/16 08:36 POC ABG pCO2 41.8 (35-45) 08/13/16 08:36 POC ABG pO2 46 (80-105) L 08/13/16 08:36 POC ABG HCO3 26.0 08/13/16 08:36 POC ABG Total CO2 27 08/13/16 08:36 POC ABG O2 Sat 82 08/13/16 08:36 PT/INR, D-dimer PT 13.6 Sec. (12.2-14.9) 08/08/16 12:04 INR 1.05 (0.87-1.13) 08/08/16 12:04 Abnormal lab findings: Abnormal Labs 08/08/16 08/09/16 08/09/16 22:56 05:04 05:04 WBC Hgb 14.4 H Hct 43.1 H D Plt Count Lymph % (Auto) [place] % (Auto) 12.9 H [place] # 1.3 H Seg Neutrophils % Seg Neuts % (Manual) Lymphocytes % (Manual) Nucleated RBC % Seg Neutrophils # Seg Neutrophils # Man Lymphocytes # (Manual) POC ABG pCO2 POC ABG pO2 Potassium Carbon Dioxide 21 L BUN Creatinine Glucose 146 H POC Glucose 108 H Calcium AST 48 H C-Reactive Protein Total Protein 6.2 L D Albumin 3.6 L 08/09/16 08/09/16 08/09/16 07:40 11:29 16:52 WBC Hgb Hct Plt Count Lymph % (Auto) [place] % (Auto) [place] # Seg Neutrophils % Seg Neuts % (Manual) Lymphocytes % (Manual) Nucleated RBC % Seg Neutrophils # Seg Neutrophils # Man Lymphocytes # (Manual) POC ABG pCO2 POC ABG pO2 Potassium Carbon Dioxide BUN Creatinine Glucose POC Glucose 168 H 138 H 140 H Calcium AST C-Reactive Protein Total Protein Albumin 08/09/16 08/09/16 08/10/16 17:51 22:07 04:39 WBC 11.5 H Hgb Hct Plt Count Lymph % (Auto) [place] % (Auto) 8.1 H [place] # 0.9 H Seg Neutrophils % 75.6 H Seg Neuts % (Manual) Lymphocytes % (Manual) Nucleated RBC % Seg Neutrophils # 8.7 H Seg Neutrophils # Man Lymphocytes # (Manual) POC ABG pCO2 32.6 L POC ABG pO2 56 L Potassium Carbon Dioxide BUN Creatinine Glucose POC Glucose 166 H Calcium AST C-Reactive Protein Total Protein Albumin 08/10/16 08/10/16 08/10/16 04:39 08:20 12:23 WBC Hgb Hct Plt Count Lymph % (Auto) [place] % (Auto) [place] # Seg Neutrophils % Seg Neuts % (Manual) Lymphocytes % (Manual) Nucleated RBC % Seg Neutrophils # Seg Neutrophils # Man Lymphocytes # (Manual) POC ABG pCO2 POC ABG pO2 Potassium 3.5 L Carbon Dioxide BUN Creatinine 1.5 H D Glucose 164 H POC Glucose 112 H 124 H Calcium 8.1 L AST C-Reactive Protein Total Protein Albumin 08/10/16 08/10/16 08/10/16 16:23 20:49 23:25 WBC Hgb Hct Plt Count Lymph % (Auto) [place] % (Auto) [place] # Seg Neutrophils % Seg Neuts % (Manual) Lymphocytes % (Manual) Nucleated RBC % Seg Neutrophils # Seg Neutrophils # Man Lymphocytes # (Manual) POC ABG pCO2 POC ABG pO2 Potassium Carbon Dioxide BUN Creatinine Glucose POC Glucose 130 H 123 H 130 H Calcium AST C-Reactive Protein Total Protein Albumin 08/11/16 08/11/16 08/11/16 06:27 06:45 12:35 WBC 12.2 H Hgb Hct Plt Count Lymph % (Auto) [place] % (Auto) 9.2 H [place] # 1.1 H Seg Neutrophils % 75.7 H Seg Neuts % (Manual) Lymphocytes % (Manual) Nucleated RBC % Seg Neutrophils # 9.2 H Seg Neutrophils # Man Lymphocytes # (Manual) POC ABG pCO2 POC ABG pO2 Potassium Carbon Dioxide BUN Creatinine Glucose POC Glucose 132 H 170 H Calcium AST C-Reactive Protein Total Protein Albumin 08/11/16 08/11/16 08/12/16 16:14 21:55 05:15 WBC 16.7 H Hgb Hct Plt Count Lymph % (Auto) 8.9 L [place] % (Auto) [place] # 1.0 H Seg Neutrophils % 84.7 H Seg Neuts % (Manual) Lymphocytes % (Manual) Nucleated RBC % Seg Neutrophils # 14.1 H Seg Neutrophils # Man Lymphocytes # (Manual) POC ABG pCO2 POC ABG pO2 Potassium Carbon Dioxide BUN Creatinine Glucose POC Glucose 248 H 196 H Calcium AST C-Reactive Protein Total Protein Albumin 08/12/16 08/12/16 08/12/16 06:32 12:26 16:32 WBC Hgb Hct Plt Count Lymph % (Auto) [place] % (Auto) [place] # Seg Neutrophils % Seg Neuts % (Manual) Lymphocytes % (Manual) Nucleated RBC % Seg Neutrophils # Seg Neutrophils # Man Lymphocytes # (Manual) POC ABG pCO2 POC ABG pO2 Potassium Carbon Dioxide BUN Creatinine Glucose POC Glucose 177 H 255 H 164 H Calcium AST C-Reactive Protein Total Protein Albumin 08/12/16 08/13/16 08/13/16 21:44 06:26 07:08 WBC 20.3 H Hgb Hct Plt Count Lymph % (Auto) [place] % (Auto) [place] # Seg Neutrophils % Seg Neuts % (Manual) 82.0 H Lymphocytes % (Manual) Nucleated RBC % Seg Neutrophils # Seg Neutrophils # Man 16.6 H Lymphocytes # (Manual) POC ABG pCO2 POC ABG pO2 Potassium Carbon Dioxide BUN Creatinine Glucose POC Glucose 234 H 144 H Calcium AST C-Reactive Protein Total Protein Albumin 08/13/16 08/13/16 08/13/16 08:36 12:08 16:46 WBC Hgb Hct Plt Count Lymph % (Auto) [place] % (Auto) [place] # Seg Neutrophils % Seg Neuts % (Manual) Lymphocytes % (Manual) Nucleated RBC % Seg Neutrophils # Seg Neutrophils # Man Lymphocytes # (Manual) POC ABG pCO2 POC ABG pO2 46 L Potassium Carbon Dioxide BUN Creatinine Glucose POC Glucose 216 H 213 H Calcium AST C-Reactive Protein Total Protein Albumin 08/13/16 08/13/16 08/14/16 21:23 21:32 05:49 WBC 14.6 H Hgb Hct Plt Count Lymph % (Auto) [place] % (Auto) [place] # Seg Neutrophils % Seg Neuts % (Manual) 82.0 H Lymphocytes % (Manual) 7.0 L Nucleated RBC % Seg Neutrophils # Seg Neutrophils # Man 12.0 H Lymphocytes # (Manual) 1.0 L POC ABG pCO2 POC ABG pO2 Potassium Carbon Dioxide BUN Creatinine Glucose POC Glucose 246 H Calcium AST C-Reactive Protein 9.70 H Total Protein Albumin 08/14/16 08/14/16 08/14/16 05:49 06:28 11:51 WBC Hgb Hct Plt Count Lymph % (Auto) [place] % (Auto) [place] # Seg Neutrophils % Seg Neuts % (Manual) Lymphocytes % (Manual) Nucleated RBC % Seg Neutrophils # Seg Neutrophils # Man Lymphocytes # (Manual) POC ABG pCO2 POC ABG pO2 Potassium 3.4 L Carbon Dioxide BUN 18 H Creatinine Glucose 138 H POC Glucose 122 H 187 H Calcium AST C-Reactive Protein Total Protein Albumin 08/14/16 08/14/16 08/15/16 16:51 21:43 05:47 WBC 14.3 H Hgb Hct Plt Count Lymph % (Auto) [place] % (Auto) [place] # Seg Neutrophils % Seg Neuts % (Manual) 78.0 H Lymphocytes % (Manual) 12.0 L Nucleated RBC % Seg Neutrophils # Seg Neutrophils # Man 11.2 H Lymphocytes # (Manual) POC ABG pCO2 POC ABG pO2 Potassium Carbon Dioxide BUN Creatinine Glucose POC Glucose 142 H 292 H Calcium AST C-Reactive Protein Total Protein Albumin 08/15/16 08/15/16 08/15/16 06:38 11:32 16:25 WBC Hgb Hct Plt Count Lymph % (Auto) [place] % (Auto) [place] # Seg Neutrophils % Seg Neuts % (Manual) Lymphocytes % (Manual) Nucleated RBC % Seg Neutrophils # Seg Neutrophils # Man Lymphocytes # (Manual) POC ABG pCO2 POC ABG pO2 Potassium Carbon Dioxide BUN Creatinine Glucose POC Glucose 117 H 318 H 192 H Calcium AST C-Reactive Protein Total Protein Albumin 08/15/16 08/16/16 08/16/16 21:17 06:04 06:04 WBC 16.3 H Hgb Hct Plt Count Lymph % (Auto) [place] % (Auto) [place] # Seg Neutrophils % Seg Neuts % (Manual) Lymphocytes % (Manual) Nucleated RBC % 1.0 H Seg Neutrophils # Seg Neutrophils # Man 10.9 H Lymphocytes # (Manual) POC ABG pCO2 POC ABG pO2 Potassium Carbon Dioxide BUN 19 H Creatinine 0.6 L Glucose 138 H POC Glucose 234 H Calcium AST C-Reactive Protein Total Protein Albumin 08/16/16 08/16/16 08/16/16 06:22 11:35 16:20 WBC Hgb Hct Plt Count Lymph % (Auto) [place] % (Auto) [place] # Seg Neutrophils % Seg Neuts % (Manual) Lymphocytes % (Manual) Nucleated RBC % Seg Neutrophils # Seg Neutrophils # Man Lymphocytes # (Manual) POC ABG pCO2 POC ABG pO2 Potassium Carbon Dioxide BUN Creatinine Glucose POC Glucose 130 H 197 H 225 H Calcium AST C-Reactive Protein Total Protein Albumin 08/16/16 08/17/16 08/17/16 21:28 05:05 06:53 WBC 15.1 H Hgb Hct Plt Count 450 H Lymph % (Auto) [place] % (Auto) [place] # Seg Neutrophils % Seg Neuts % (Manual) 84.0 H Lymphocytes % (Manual) 11.0 L Nucleated RBC % 1.0 H Seg Neutrophils # Seg Neutrophils # Man 12.7 H Lymphocytes # (Manual) POC ABG pCO2 POC ABG pO2 Potassium Carbon Dioxide BUN Creatinine Glucose POC Glucose 163 H 266 H Calcium AST C-Reactive Protein Total Protein Albumin 08/17/16 08/17/16 08/17/16 06:53 12:12 16:48 WBC Hgb Hct Plt Count Lymph % (Auto) [place] % (Auto) [place] # Seg Neutrophils % Seg Neuts % (Manual) Lymphocytes % (Manual) Nucleated RBC % Seg Neutrophils # Seg Neutrophils # Man Lymphocytes # (Manual) POC ABG pCO2 POC ABG pO2 Potassium Carbon Dioxide BUN 18 H Creatinine 0.6 L Glucose 196 H POC Glucose 283 H 234 H Calcium AST C-Reactive Protein Total Protein Albumin 08/17/16 08/18/16 08/18/16 21:18 05:32 05:32 WBC 16.2 H Hgb Hct Plt Count Lymph % (Auto) [place] % (Auto) [place] # Seg Neutrophils % Seg Neuts % (Manual) 80.0 H Lymphocytes % (Manual) Nucleated RBC % Seg Neutrophils # Seg Neutrophils # Man 13.0 H Lymphocytes # (Manual) POC ABG pCO2 POC ABG pO2 Potassium Carbon Dioxide BUN Creatinine 0.5 L Glucose 176 H POC Glucose 201 H Calcium 8.2 L AST C-Reactive Protein Total Protein Albumin 08/18/16 08/18/16 06:23 12:02 WBC Hgb Hct Plt Count Lymph % (Auto) [place] % (Auto) [place] # Seg Neutrophils % Seg Neuts % (Manual) Lymphocytes % (Manual) Nucleated RBC % Seg Neutrophils # Seg Neutrophils # Man Lymphocytes # (Manual) POC ABG pCO2 POC ABG pO2 Potassium Carbon Dioxide BUN Creatinine Glucose POC Glucose 132 H 315 H Calcium AST C-Reactive Protein Total Protein Albumin
[2016-08-18] MEDS: AMBIEN PO PRN (23:43)
[2016-08-19] MEDS: DUONEB 0.5 MG-3 MG/3 ML SOLN IH SCH ×3 (02:38→13:23)
[2016-08-19] MEDS: BROVANA NEBU IH SCH (08:00)
[2016-08-19] MEDS: PULMICORT IH SCH (08:01)
[2016-08-19] MEDS: NOVOLOG SUB-Q SCH ×2 (09:55→13:54)
[2016-08-19] MEDS: COREG PO SCH (11:48)
[2016-08-19] MEDS: COZAAR PO SCH (11:49)
[2016-08-19] MEDS: LEVAQUIN 750MG/150ML 750 MG/150 ML BAG IV SCH (11:50)
[2016-08-19] MEDS: MUCINEX ER PO SCH (11:51)
[2016-08-19] MEDS: LOVENOX SUB-Q SCH (11:51)
[2016-08-19] MEDS: NORVASC PO SCH (11:51)
[2016-08-19] MEDS: TRADJENTA PO SCH (11:52)
[2016-08-19] MEDS: SYNTHROID PO SCH (11:52)
[2016-08-19 11:53] VITALS: BP 140/80
[2016-08-19] MEDS: ZOCOR PO SCH (11:53)
--- NOTE | 2016-08-19 12:54 | Discharge Summary ---
Providers - Providers Date of Admission: 08/08/16 19:44 Date of discharge: 08/19/16 Attending physician: BRENNON GATICA 08/09/16 07:53 Consult to Physician [CONS] Routine Consulting Provider: LIAM WANG Reason For Exam: Abnormal CT, bilateral interstitial infiltrates Place consult to:: Office Notified:: yes Phone number called:: [phone] Was contact made?: Yes If yes, spoke with:: Time called:: 10:16 08/10/16 09:26 Consult to Physician [CONS] Routine Consulting Provider: LIAM WANG Reason For Exam: bilateral interstitial infiltrates Place consult to:: Office Notified:: yes Phone number called:: [phone] Was contact made?: Yes If yes, spoke with:: Time called:: 10:14 08/17/16 09:34 Physical Therapy Evaluation and Treat [CONS] Routine Comment: Reason For Exam: debility Primary care physician: [employer] Hospitalization Reason for admission: SOB Condition: Stable Hospital course: 61-year-old female who presented to the emergency department with complaints of fever, chills, body aches 4 days prior to admission. Patient with diagnosis of sepsis secondary to UTI and pneumonia/pneumonitis. Patient reportedly had cough of clear sputum and dyspnea with exertion. No chest pain. Patient had a chest x-ray which reveal bilateral edema and there was some concern for possible pulmonary edema. However, Echocardiogram was completed on 07/23/16 that showed an EF 55-60% with normal diastolic function, normal RV size and function with no significant valvular abnormalities. Therefore, it was felt the patient had bilateral pneumonia/pneumonitis. Patient was seen by pulmonary consultation. Pulmonary but the patient may have possible COPD and added IV Solu-Medrol along with Brovana, albuterol and Atrovent. The blood and urine cultures were found to be negative. Patient received appropriate IV antibiotic therapy. The IV steroids were weaned. Patient was felt to have received maximal hospital benefit for discharge. Patient is to discharge home and follow -up with her primary care physician and pulmonary as an outpatient. Dedicated discharge time 35 minutes. Disposition: DISCHARGED TO HOME OR SELFCARE Time spent for discharge: 35 - Discharge Diagnoses (1) Sepsis Status: Acute Qualifiers: Sepsis type: S (2) Acute hypoxemic respiratory failure Status: Acute (3) COPD exacerbation Status: Acute (4) Pneumonia Status: Acute Qualifiers: Pneumonia type: due to unspecified organism Aspiration pneumonia type: A Laterality: bilateral Lung location: unspecified part of lung Qualified Code (s): J18.9 - Pneumonia, unspecified organism (5) UTI (urinary tract infection) Status: Acute Qualifiers: Urinary tract infection type: acute cystitis Hematuria presence: H Indwelling urinary catheter type: I Encounter type: E Core Measure Documentation - Palliative Care Palliative Care/ Comfort Measures: Not Applicable - Core Measures Any of the following diagnoses?: none Exam - Constitutional Vitals: Temp Pulse Resp BP Pulse Ox 97.9 F 62 16 140/80 96 08/19/16 08:00 08/19/16 11:51 08/19/16 08:17 08/19/16 11:51 08/19/16 08:11 General appearance: Present: no acute distress, well-nourished - EENT Eyes: Present: PERRL ENT: hearing intact, clear oral mucosa - Neck Neck: Present: supple, normal ROM - Respiratory Respiratory effort: normal Respiratory: bilateral: CTA - Cardiovascular Heart Sounds: Present: S1 & S2. Absent: rub, click - Extremities Extremities: pulses symmetrical, No edema Peripheral Pulses: within normal limits - Abdominal General gastrointestinal: Present: soft, non-tender, non-distended, normal bowel sounds Female genitourinary: Present: normal - Integumentary Integumentary: Present: clear, warm, dry - Musculoskeletal Musculoskeletal: gait normal, strength equal bilaterally - Psychiatric Psychiatric: appropriate mood/affect, intact judgment & insight - Neurologic Neurologic: CNII-XII intact, moves all extremities Plan Activity: no restrictions Weight Bearing Status: Full Weight Bearing Diet: diabetic Follow up with: PRIMARY CARE, [Primary Care Provider] - 3-5 Days Prescriptions: Arformoterol Nebu [Brovana Nebu] 15 mcg IH Q12HRT #30 ml Budesonide [Pulmicort Respules] 0.5 mg IH Q12HRT #30 nebu guaiFENesin ER [Mucinex ER] 1,200 mg PO BID #60 tablet Ipratropium/Albuterol Sulfate [Duoneb 0.5 mg-3 mg/3 ml Soln] 1 ampul IH Q6HRT # 30 ampul.neb oxyCODONE /ACETAMINOPHEN [Percocet 5/325 mg] 1 tab PO Q6H PRN #30 tablet PRN Reason: Pain, Moderate (4-6)
== END 2016-08-19 16:15 | disposition home or self-care (01) | DRG 871 ==
LOC: ED 11:32 → 2B-SURG 19:44 → 3A 08-10 21:51
PROVIDERS: ADMIT Internal Medicine; ATTEND Hospitalist
PROC: 4A033R1 Measurement of Arterial Saturation, Peripheral, Percutaneous Approach (ICD-10-PCS; principal; 2016-08-09)
PROC: 4A033R1 Measurement of Arterial Saturation, Peripheral, Percutaneous Approach (ICD-10-PCS; 2016-08-13)
DX: A41.9 Sepsis, unspecified organism (principal); J18.9 Pneumonia, unspecified organism; J96.01 Acute respiratory failure with hypoxia; N39.0 Urinary tract infection, site not specified; J44.1 Chronic obstructive pulmonary disease with (acute) exacerbation; J44.0 Chronic obstructive pulmonary disease with (acute) lower respiratory infection; N17.9 Acute kidney failure, unspecified; I10 Essential (primary) hypertension; I25.10 Atherosclerotic heart disease of native coronary artery without angina pectoris; E11.9 Type 2 diabetes mellitus without complications; E78.5 Hyperlipidemia, unspecified; E03.9 Hypothyroidism, unspecified; E78.00 Pure hypercholesterolemia, unspecified; R07.81 Pleurodynia; Z88.2 Allergy status to sulfonamides; Z79.82 Long term (current) use of aspirin; Z82.49 Family history of ischemic heart disease and other diseases of the circulatory system; Z87.891 Personal history of nicotine dependence; Z90.49 Acquired absence of other specified parts of digestive tract
CPT/HCPCS: 36415; 36600; 71010; 71020; 71275; 80048; 80053; 81001; 82140; 82164; 82550; 82553; 82803; 82805; 82962; 83036; 83880; 84443; 84484; 85007; 85025; 85610; 85730; 86038; 86140; 87040; 87086; 90732; 93005; 93010; 94640; 94668; 94760; 96361; 96365; 99406; G8978-GP; G8979-GP; G8980-GP; J1170; J1650; J1815; J1940; J1956; J2405; J2543; J2920; J3370; J7030; J7040; Q9967

== ENCOUNTER 2018-03-11 20:30 | Emergency (ER) | payer MEDICARE ==
[2018-03-11] MEDS ORDERED: NACL 0.9% 1000 ML 1,000 ML IV ONE ×2 (20:55→22:47)
[2018-03-11 21:20] LABS: Basophils # (Auto) 0.1 K/mm3 (0.0-0.1); Basophils % (Auto) 0.7 % (0.0-1.8); Eosinophils # (Auto) 0.1 K/mm3 (0.0-0.4); Hematocrit 41.7 % (30.3-42.9); Hemoglobin 14.2 gm/dl (10.1-14.3); Lymphocytes # (Auto) 2.5 K/mm3 (1.2-5.4); Lymphocytes % (Auto) 19.5 % (13.4-35.0); Mean Corpuscular HGB Conc 34 % (30-34); Mean Corpuscular Hemoglobin 33 pg (28-32); Mean Corpuscular Volume 95 fl (79-97); Monocytes % (Auto) 7.8 % (0.0-7.3); Platelet Count 270 K/mm3 (140-440); Red Blood Count 4.37 M/mm3 (3.65-5.03); Red Cell Distribution Width 14.1 % (13.2-15.2)
[2018-03-11 21:50] LABS: Albumin 4.4 g/dL (3.9-5); Calcium 9.8 mg/dL (8.4-10.2)
[2018-03-11 21:59] LABS: Bilirubin,Urine NEG (Negative); Blood,Urine LG (Negative); Color,Urine Red (Yellow); Urobilinogen,Urine < 2.0 mg/dL (<2.0)
[2018-03-11 22:00] LABS: RBC,Urine > 182.0 /HPF (0.0-6.0); WBC,Urine > 182.0 /HPF (0.0-6.0)
[2018-03-11] MEDS ORDERED: ROCEPHIN/NS 1 GM/50 ML 1 GM/50 ML BAG IV ONE (22:47)
--- NOTE | 2018-03-11 23:20 | Emergency Department Report ---
ED Female HPI - General Chief complaint: Abdominal Pain Stated complaint: BACK PAIN, URINE IN BLOOD Time Seen by Provider: 03/11/18 22:16 Source: patient Mode of arrival: Ambulatory Limitations: No Limitations - History of Present Illness Initial comments: 62 year old female with a past medical history of diabetes, hypertension, hypothyroidism, elevated cholesterol, degenerative disc disease, previous meniscectomy, and cholecystectomy presents to Hospital complains of bilateral flank plain and gross hematuria noted today. Patient denies dysuria, nausea, vomiting, or fever. Yesterday she was started on medication for bronchitis which includes azithromycin, Cheratussin, and Tessalon Perles. - Related Data Home Medications Medication Instructions Recorded Confirmed Last Taken Cholecalciferol (Vitamin D3) 50,000 units PO QWEEK 06/09/13 08/08/16 Unknown [Vitamin D3] Levothyroxine [Synthroid] 75 mcg PO DAILY 06/09/13 08/08/16 05/01/14 Simvastatin [Zocor TAB] 40 mg PO DAILY 06/09/13 08/08/16 04/30/14 buPROPion SR [Wellbutrin SR] 150 mg PO QAM 05/01/14 08/08/16 Unknown Carvedilol [Coreg] 3.125 mg PO BID 08/08/16 08/08/16 Unknown Losartan [Cozaar] 100 mg PO QDAY 08/08/16 08/08/16 Unknown Sitagliptin Phosphate [Januvia] 100 mg PO 08/08/16 Unknown Umeclidinium Brm/Vilanterol Tr 1 each IH DAILY 08/08/16 08/08/16 Unknown [Anoro Ellipta 62.5-25 Mcg INH] amLODIPine [Norvasc] 5 mg PO DAILY 08/08/16 08/08/16 Unknown metFORMIN [Glucophage] 500 mg PO BID 08/08/16 08/08/16 Unknown Previous Rx's Medication Instructions Recorded Last Taken Type Arformoterol Nebu [Brovana Nebu] 15 mcg IH Q12HRT #30 ml 08/19/16 Unknown Rx Budesonide [Pulmicort Respules] 0.5 mg IH Q12HRT #30 nebu 08/19/16 Unknown Rx Fluconazole [Diflucan] 200 mg PO QDAY #3 bottle 08/19/16 Unknown Rx Ipratropium/Albuterol Sulfate 1 ampul IH Q6HRT #30 ampul.neb 08/19/16 Unknown Rx [DUONEB *Not for PRN Use*] Linagliptin [Tradjenta] 5 mg PO QDAY tablet 08/19/16 Unknown Rx Losartan [Cozaar] 100 mg PO QDAY tablet 08/19/16 Unknown Rx Prednisone [predniSONE 5 mg (6-Day 5 mg PO .TAPER #1 tab.ds.pk 08/19/16 Unknown Rx Pack, 21 Tabs)] guaiFENesin ER [Mucinex ER] 1,200 mg PO BID #60 tablet 08/19/16 Unknown Rx levoFLOXacin [Levaquin] 750 mg PO QDAY #7 tablet 08/19/16 Unknown Rx oxyCODONE /ACETAMINOPHEN [Percocet 1 tab PO Q6H PRN #30 tablet 08/19/16 Unknown Rx 5/325 mg] cephALEXin [Keflex] 500 mg PO Q12HR 7 Days cap 03/11/18 Unknown Rx Ibuprofen [Motrin] 600 mg PO Q8H PRN #30 tablet 03/12/18 Unknown Rx traMADol [Ultram 50 MG tab] 50 mg PO Q6HR PRN #20 tablet 03/12/18 Unknown Rx Allergies Allergy/AdvReac Type Severity Reaction Status Date / Time Sulfa (Sulfonamide Allergy Itching Verified 08/08/16 11:44 Antibiotics) ED Review of Systems ROS: Stated complaint: BACK PAIN, URINE IN BLOOD Other details as noted in HPI Comment: All other systems reviewed and negative ED Past Medical Hx - Past Medical History Previous Medical History?: Yes Hx Hypertension: Yes Hx CVA: No Hx Heart Attack/AMI: No Hx Congestive Heart Failure: No Hx Diabetes: Yes Hx Deep Vein Thrombosis: No Hx Pulmonary Embolism: No Hx Liver Disease: No Hx Renal Disease: No Hx of Cancer: No Hx Sickle Cell Disease: No Hx Arthritis: Yes Hx Headaches / Migraines: No Hx Seizures: No Hx Kidney Stones: No Hx Psychiatric Treatment: No Hx Asthma: No Hx COPD: No Hx Tuberculosis: No Hx Dementia: No Hx HIV: No Additional medical history: hypothyroid; high cholesterol;degenerative disc - Surgical History Past Surgical History?: Yes Hx Coronary Stent: No Hx Open Heart Surgery: No Hx Pacemaker: No Hx Internal Defibrillator: No Hx Cholecystectomy: Yes (1988) Hx Appendectomy: No Hx Breast Surgery: Yes (masectomy due to cyst) Additional Surgical History: Bilateral breast - Social History Smoking Status: Current Every Day Smoker Substance Use Type: None - Medications Home Medications: Home Medications Medication Instructions Recorded Confirmed Last Taken Type Cholecalciferol (Vitamin D3) 50,000 units PO QWEEK 06/09/13 08/08/16 Unknown History [Vitamin D3] Levothyroxine [Synthroid] 75 mcg PO DAILY 06/09/13 08/08/16 05/01/14 History Simvastatin [Zocor TAB] 40 mg PO DAILY 06/09/13 08/08/16 04/30/14 History buPROPion SR [Wellbutrin SR] 150 mg PO QAM 05/01/14 08/08/16 Unknown History Carvedilol [Coreg] 3.125 mg PO BID 08/08/16 08/08/16 Unknown History Losartan [Cozaar] 100 mg PO QDAY 08/08/16 08/08/16 Unknown History Sitagliptin Phosphate [Januvia] 100 mg PO 08/08/16 Unknown History Umeclidinium Brm/Vilanterol Tr 1 each IH DAILY 08/08/16 08/08/16 Unknown History [Anoro Ellipta 62.5-25 Mcg INH] amLODIPine [Norvasc] 5 mg PO DAILY 08/08/16 08/08/16 Unknown History metFORMIN [Glucophage] 500 mg PO BID 08/08/16 08/08/16 Unknown History Arformoterol Nebu [Brovana Nebu] 15 mcg IH Q12HRT #30 ml 08/19/16 Unknown Rx Budesonide [Pulmicort Respules] 0.5 mg IH Q12HRT #30 nebu 08/19/16 Unknown Rx Fluconazole [Diflucan] 200 mg PO QDAY #3 bottle 08/19/16 Unknown Rx Ipratropium/Albuterol Sulfate 1 ampul IH Q6HRT #30 ampul.neb 08/19/16 Unknown Rx [DUONEB *Not for PRN Use*] Linagliptin [Tradjenta] 5 mg PO QDAY tablet 08/19/16 Unknown Rx Losartan [Cozaar] 100 mg PO QDAY tablet 08/19/16 Unknown Rx Prednisone [predniSONE 5 mg (6-Day 5 mg PO .TAPER #1 tab.ds.pk 08/19/16 Unknown Rx Pack, 21 Tabs)] guaiFENesin ER [Mucinex ER] 1,200 mg PO BID #60 tablet 08/19/16 Unknown Rx levoFLOXacin [Levaquin] 750 mg PO QDAY #7 tablet 08/19/16 Unknown Rx oxyCODONE /ACETAMINOPHEN [Percocet 1 tab PO Q6H PRN #30 tablet 08/19/16 Unknown Rx 5/325 mg] cephALEXin [Keflex] 500 mg PO Q12HR 7 Days cap 03/11/18 Unknown Rx Ibuprofen [Motrin] 600 mg PO Q8H PRN #30 tablet 03/12/18 Unknown Rx traMADol [Ultram 50 MG tab] 50 mg PO Q6HR PRN #20 tablet 03/12/18 Unknown Rx ED Physical Exam - General Limitations: No Limitations - Other Other exam information: General: No limitations, patient is alert in no acute distress Head exam: Atraumatic, normocephalic Eyes exam: Normal appearance ENT: Moist mucous membrane Neck exam: Normal inspection, full range of motion Respiratory exam: Clear to auscultation bilateral, no wheezes, rales, crackles Cardiovascular: Normal rate and rhythm, normal heart sounds Abdomen: Soft, nondistended, and nontender, with normal bowel sounds, no rebound, or guarding Extremity: Full range of motion normal inspection no deformity Back: Normal Inspection, full range of motion, bilateral CVA tenderness Neurologic: Alert, oriented x3, cranial nerves intact, no motor or sensory deficit Psychiatric: normal affect, normal mood Skin: Warm, dry, intact ED Course Vital Signs 03/11/18 20:43 Temperature 98.3 F Pulse Rate 78 Respiratory 18 Rate Blood Pressure 172/85 Blood Pressure 172/85 [Right] O2 Sat by Pulse 100 Oximetry ED Medical Decision Making - Lab Data Result diagrams: 03/11/18 21:05 03/11/18 21:05 Lab Results 03/11/18 03/11/18 03/11/18 Range/Units 21:05 21:05 21:33 WBC 12.7 H (4.5-11.0) K/mm3 RBC 4.37 (3.65-5.03) M/mm3 Hgb 14.2 (10.1-14.3) gm/dl Hct 41.7 (30.3-42.9) % MCV 95 (79-97) fl MCH 33 H (28-32) pg MCHC 34 (30-34) % RDW 14.1 (13.2-15.2) % Plt Count 270 (140-440) K/mm3 Lymph % (Auto) 19.5 (13.4-35.0) % [place] % (Auto) 7.8 H (0.0-7.3) % Eos % (Auto) 1.0 (0.0-4.3) % Baso % (Auto) 0.7 (0.0-1.8) % Lymph # 2.5 (1.2-5.4) K/mm3 [place] # 1.0 H (0.0-0.8) K/mm3 Eos # 0.1 (0.0-0.4) K/mm3 Baso # 0.1 (0.0-0.1) K/mm3 Seg Neutrophils % 71.0 H (40.0-70.0) % Seg Neutrophils # 9.0 H (1.8-7.7) K/mm3 Sodium 146 H (137-145) mmol/L Potassium 3.5 L (3.6-5.0) mmol/L Chloride 109.6 H (98-107) mmol/L Carbon Dioxide 26 (22-30) mmol/L Anion Gap 14 mmol/L BUN 14 (7-17) mg/dL Creatinine 1.2 (0.7-1.2) mg/dL Estimated GFR 55 ml/min BUN/Creatinine Ratio 12 % Glucose 102 H (65-100) mg/dL Calcium 9.8 (8.4-10.2) mg/dL Total Bilirubin 0.40 (0.1-1.2) mg/dL AST 18 (5-40) units/L ALT 14 (7-56) units/L Alkaline Phosphatase 65 (35-129) units/L Total Protein 6.9 (6.3-8.2) g/dL Albumin 4.4 (3.9-5) g/dL Albumin/Globulin Ratio 1.8 % Urine Color Red (Yellow) Urine Turbidity Cloudy (Clear) Urine pH 6.0 (5.0-7.0) Ur Specific [place] 1.013 (1.003-1.030) Urine Protein 100 mg/dl (Negative) mg/dL Urine Glucose (UA) Neg (Negative) mg/dL Urine Ketones Neg (Negative) mg/dL Urine Blood Lg (Negative) Urine Nitrite Pos (Negative) Urine Bilirubin Neg (Negative) Urine Urobilinogen < 2.0 (<2.0) mg/dL Ur Leukocyte Esterase Sm (Negative) Urine WBC (Auto) > 182.0 H (0.0-6.0) /HPF Urine RBC (Auto) > 182.0 (0.0-6.0) /HPF Urine WBC Clumps 3+ /HPF Urine Yeast (Budding) 2+ /HPF - Radiology Data Radiology results: report reviewed FINAL REPORT PROCEDURE: CT ABDOMEN PELVIS WO CON TECHNIQUE: Computerized axial tomography of the abdomen and pelvis was performed without intravenous contrast. This study is performed without intravascular contrast material and its sensitivity for abdominal and pelvic pathology, including neoplasms, inflammation, abscess, free fluid, thrombosis, arterial dissection and infarction, is reduced compared with a contrast enhanced study. HISTORY: hematuria, flank pain, UTI COMPARISON: No prior studies are available for comparison. FINDINGS: Visualized lower thorax: No significant abnormality. Liver : Normal size and attenuation. Spleen: Normal size and attenuation. Gallbladder and biliary system: Normal. Pancreas: Normal. Adrenals: Normal. Kidneys: Normal. GI tract: Normal. Lymph nodes and mesentery: Normal. Vasculature: Normal. Bladder: Normal. Reproductive organs: Normal. Peritoneum: No free fluid. Musculoskeletal structures: No significant abnormality. Other: None. IMPRESSION: There is no evidence of intestinal or urinary tract obstruction. No ileus or enteritis. The appendix is normal.. - Medical Decision Making Hematuria Positive UTI CT negative Received Rocephin IV in the ED We'll be discharged on Keflex for UTI Urine culture pending mild hypokalemia po kcl given toradol iv for pain - Differential Diagnosis UTI, renal colic, bladder mass, renal carcinoma Critical Care Time: No Critical care attestation.: If time is entered above; I have spent that time in minutes in the direct care of this critically ill patient, excluding procedure time. ED Disposition Clinical Impression: UTI (urinary tract infection), Hematuria Disposition: TO HOME OR SELFCARE Is pt being admited?: No Does the pt Need Aspirin: No Condition: Stable Instructions: Urinary Tract Infection in Women (ED) Additional Instructions: Take the medication as prescribed. Follow up with your doctor. Return if symptoms worsen as indicated by your discharge instructions Prescriptions: cephALEXin [Keflex] 500 mg PO Q12HR 7 Days cap Ibuprofen [Motrin] 600 mg PO Q8H PRN #30 tablet PRN Reason: Pain traMADol [Ultram 50 MG tab] 50 mg PO Q6HR PRN #20 tablet PRN Reason: Pain Referrals: PRIMARY CARE, [Primary Care Provider] - 3-5 Days Time of Disposition: 00:37
--- NOTE | 2018-03-11 23:24 | Cat Scan Report ---
FINAL REPORT PROCEDURE: CT ABDOMEN PELVIS WO CON TECHNIQUE: Computerized axial tomography of the abdomen and pelvis was performed without intravenous contrast. This study is performed without intravascular contrast material and its sensitivity for abdominal and pelvic pathology, including neoplasms, inflammation, abscess, free fluid, thrombosis, arterial dissection and infarction, is reduced compared with a contrast enhanced study. HISTORY: hematuria, flank pain, UTI COMPARISON: No prior studies are available for comparison. FINDINGS: Visualized lower thorax: No significant abnormality. Liver: Normal size and attenuation. Spleen: Normal size and attenuation. Gallbladder and biliary system: Normal. Pancreas: Normal. Adrenals: Normal. Kidneys: Normal. GI tract: Normal. Lymph nodes and mesentery: Normal. Vasculature: Normal. Bladder: Normal. Reproductive organs: Normal. Peritoneum: No free fluid. Musculoskeletal structures: No significant abnormality. Other: None. IMPRESSION: There is no evidence of intestinal or urinary tract obstruction. No ileus or enteritis. The appendix is normal..
[2018-03-11] MEDS ORDERED: ROCEPHIN IM ONE (23:27)
[2018-03-12] MEDS ORDERED: K-DUR PO ONE (00:36)
[2018-03-12] MEDS ORDERED: TORADOL IV ONE (00:36)
[2018-03-12 01:01] VITALS: BP 140/53
== END 2018-03-12 01:01 | disposition home or self-care (01) ==
LOC: ED 20:30
DX: N39.0 Urinary tract infection, site not specified (principal); E11.9 Type 2 diabetes mellitus without complications; E03.9 Hypothyroidism, unspecified; M19.90 Unspecified osteoarthritis, unspecified site; E78.00 Pure hypercholesterolemia, unspecified; F17.200 Nicotine dependence, unspecified, uncomplicated; Z90.13 Acquired absence of bilateral breasts and nipples; Z90.49 Acquired absence of other specified parts of digestive tract; Z88.2 Allergy status to sulfonamides
CPT/HCPCS: 36415; 74176; 80053; 81001; 85025; 87076; 87086; 87186; 96365; 96375; 99284; J0696; J1885; J7030